=== PATIENT | female | born 1955 | race Caucasian/White ===

== ENCOUNTER 2017-07-13 07:17 | Day surgery (SDC) | payer MEDICARE ==
[2017-07-13] MEDS ORDERED: CLONAZEPAM2 MG/TAB (08:30)
[2017-07-13] MEDS ORDERED: ROBAXIN-750750 MG PO (08:31)
[2017-07-13] MEDS ORDERED: AMBIEN10 MG PO (08:32)
[2017-07-13] MEDS ORDERED: ESTRADERM 0.10.1 MG TD (08:32)
[2017-07-13] MEDS ORDERED: REGLAN10 MG PO (08:32)
[2017-07-13] MEDS ORDERED: PHENERGAN25 M1 (08:33)
[2017-07-13] MEDS ORDERED: ZENPEP DR 5,001 EACH PO (08:33)
[2017-07-13] MEDS ORDERED: NEURONTIN 300300 MG (08:34)
[2017-07-13] MEDS ORDERED: BUPRENORPHINE HC8 MG SL (08:35)
[2017-07-13] MEDS ORDERED: REMERON30 MG PO (08:35)
[2017-07-13] MEDS ORDERED: EPIPEN0.3 MG/0.3 IM (08:35)
[2017-07-13 08:45] VITALS: BP 107/69; BMI 17.9
[2017-07-13 09:36] LABS: HEMOGLOBIN 11.2 g/dL (12-16); MCH 32.9 pg (26.0-34.0); MCHC 32.9 g/dL (31.0-37.0); MEAN PLATELET VOLUME 10.5 fL (7.4-10.4); RBC 3.4 10x6/uL (4.00-5.40); RDW 12.1 % (11.5-14.5); WBC 5.9 10x3/uL (4.8-10.8)
[2017-07-13 09:39] LABS: CARBON DIOXIDE 21.5 mmol/L (21.0-32.0); CHLORIDE - SERUM 115 mmol/L (98-107); CREATININE - SERUM 0.6 mg/dL (0.6-1.3); SODIUM 147 mmol/L (136-145); UREA NITROGEN 10 mg/dL (7-18); eGFR NON AFRICAN AMERICAN > 90 mL/min (90-120)
[2017-07-13 09:40] LABS: CALC OSMOLALITY 288 mosm/kg (275-300)
[2017-07-13 09:42] LABS: CALCIUM 6.3 mg/dL (8.5-10.1); GLUCOSE 60 mg/dL (74-106); POTASSIUM - SERUM 2.6 mmol/L (3.5-5.1)
--- NOTE | 2017-07-13 18:32 | OP ---
PATIENT NAME: REBECCA WHITFIELD MEDICAL RECORD: [id number] :57 LOCATION:D.OPS ADMISSION DATE: SURGEON: ARLEEN LYNN MD DATE OF OPERATION: 07/13/2017 SURGEON: Arleen Lynn MD PREOPERATIVE DIAGNOSES: 1. Screening colonoscopy. 2. Nicotine dependence. 3. Chronic pancreatitis. 4. Gastroparesis. POSTOPERATIVE DIAGNOSES: 1. Screening colonoscopy. 2. Nicotine dependence. 3. Chronic pancreatitis. 4. Gastroparesis. PROCEDURE PERFORMED: Colonoscopy. ANESTHESIA: Total intravenous anesthesia. Case was contaminated. COMPLICATIONS: None. SPECIMENS: None. OPERATIVE COURSE: After consent was obtained, the patient was taken to the endoscopy suite. A timeout was taken to confirm correct patient and procedure. The patient was placed in left lateral decubitus position, total intravenous anesthesia was given. Digital rectal exam was performed. No masses. Scope was then inserted through the anus. The colon was insufflated. The scope was advanced to the cecum. The appendiceal orifice was identified and pictured as well as the ileocecal valve approximately 19 minutes was spent on colonoscopy, 8 of which was spent on withdrawal. The colonoscope during the colonoscopy no abnormalities were identified. The patient had no polyps were identified. No diverticular disease was identified. No stigmata of bleeding. No evidence of angiodysplasia. As we returned to the rectum, the scope was retroflexed. There was some small grade I internal hemorrhoids noted. At this time, the scope was readvanced into the sigmoid colon and descending colon. The scope was desufflated and then the scope was withdrawn. The patient tolerated the procedure well. The patient will need repeat colonoscopy in 7 to 10 years due to continued smoking and high risk behavior. TRANSINT:[id number] Voice Confirmation ID: [id number] DOCUMENT ID: [id number] OPERATIVE REPORT [id number] ROSEANNREBECCA ARLEEN LYNN MD at 1832 CC: [id number] DICTATION DATE: 07/13/17 0938 SPECIAL EDUCATION RESOURCE TEACHER: 07/13/17 1212 [facility] 07/13/17 [place] [address]
== END 2017-07-13 11:51 | disposition home or self-care (01) ==
LOC: D.OPS 07:17
PROVIDERS: Anesthesiology
DX: Z12.11 Encounter for screening for malignant neoplasm of colon (principal); K64.0 First degree hemorrhoids; F17.200 Nicotine dependence, unspecified, uncomplicated; K31.84 Gastroparesis; K86.1 Other chronic pancreatitis; Z01.812 Encounter for preprocedural laboratory examination

== ENCOUNTER → 2017-10-24 10:39 | Outpatient (CLI) | payer OTHER ==
[~2017-10-24 10:39] MED LIST: AMBIEN10 MG PO; BUPRENORPHINE HC8 MG SL; CLONAZEPAM2 MG/TAB; EPIPEN0.3 MG/0.3 IM; ESTRADERM 0.10.1 MG TD; NEURONTIN 300300 MG; PHENERGAN25 M1; REGLAN10 MG PO; REMERON30 MG PO; ROBAXIN-750750 MG PO; ZENPEP DR 5,001 EACH PO
== END | disposition home or self-care (01) ==
LOC: D.MRI 10:39
DX: M54.2 Cervicalgia (principal)

== ENCOUNTER 2017-10-26 00:19 | Emergency (ER) | payer OTHER ==
[2017-10-26 03:52] LABS: BASOPHILS 0.4 % (0-2); EOSINOPHILS 2.1 % (0-7); HEMATOCRIT 32.4 % (36.0-48.0); HEMOGLOBIN 10.6 g/dL (12-16); IMMATURE GRANULOCYTES 0.2 % (0-5); LYMPHOCYTES 32.6 % (15-50); MCH 32.5 pg (26.0-34.0); MCHC 32.7 g/dL (31.0-37.0); MCV 99.4 fL (80.0-100.0); MEAN PLATELET VOLUME 9.8 fL (7.4-10.4); MONOCYTES 7.4 % (2-11); NEUTROPHILS 57.3 % (40-80); PLATELET COUNT 133 10x3/uL (130-400); RBC 3.26 10x6/uL (4.00-5.40); RDW 12.1 % (11.5-14.5); WBC 5.7 10x3/uL (4.8-10.8)
[2017-10-26 04:01] LABS: INR 1.05 (0.85-1.17); PROTIME 13.3 SECONDS (11.6-15.0)
[2017-10-26 04:02] LABS: APTT 112.6 SECONDS (22.8-39.4); D-DIMER-QUANTITATIVE 0.79 ug/mLFEU (0.20-0.54)
[2017-10-26 04:04] LABS: ALBUMIN 3.3 g/dL (3.4-5.0); ALKALINE PHOSPHATASE 75 U/L (46-116); ALT (SGPT) 23 U/L (10-68); BILIRUBIN - TOTAL 0.44 mg/dL (0.2-1.3); CALC OSMOLALITY 278 mosm/kg (275-300); CARBON DIOXIDE 27.6 mmol/L (21.0-32.0); CHLORIDE - SERUM 107 mmol/L (98-107); CREATININE - SERUM 0.8 mg/dL (0.6-1.3); GLUCOSE 81 mg/dL (74-106); PROTEIN - SERUM 6.6 g/dL (6.4-8.2); SODIUM 140 mmol/L (136-145); UREA NITROGEN 16 mg/dL (7-18); eGFR NON AFRICAN AMERICAN 77 mL/min (90-120)
[2017-10-26 04:15] LABS: CKMB 1.9 U/L (0.0-3.6); CREATINE KINASE 487 UL (21-215); MAGNESIUM - SERUM 1.9 mg/dL (1.8-2.4); PRO BNP 443 pg/mL (0-125)
[2017-10-26 04:18] LABS: TROPONIN-I < 0.017 ng/mL (0.000-0.060)
== END 2017-10-26 07:54 | disposition home or self-care (01) ==
LOC: D.ER 00:19
PROVIDERS: Family Medicine
DX: M79.662 Pain in left lower leg (principal); M79.661 Pain in right lower leg; D64.9 Anemia, unspecified; I82.402 Acute embolism and thrombosis of unspecified deep veins of left lower extremity; F17.200 Nicotine dependence, unspecified, uncomplicated; R00.1 Bradycardia, unspecified

== ENCOUNTER → 2017-11-14 11:03 | Outpatient (CLI) | payer OTHER | END | disposition home or self-care (01) | LOC: D.MRI 10:30 | DX: M54.5 Low back pain (principal) ==

== ENCOUNTER 2018-03-21 11:37 | Inpatient (IN) | payer OTHER ==
[~2018-03-21] VITALS: Ht 157.5 cm; Wt 46.8 kg
[~2018-03-21 11:37] MED LIST changes: -PHENERGAN25 M1; +PHENERGAN25 M1 PO
[2018-03-21 12:45] VITALS: BP 122/51
[2018-03-21] MEDS ORDERED: ELIQUIS5 MG PO (14:53)
[2018-03-21] MEDS ORDERED: WELLBUTRIN SR150 MG (14:55)
[2018-03-21 14:57] LABS: BASOPHILS 0.6 % (0-2); EOSINOPHILS 1.1 % (0-7); HEMATOCRIT 35.1 % (36.0-48.0); HEMOGLOBIN 11.6 g/dL (12-16); IMMATURE GRANULOCYTES 0.2 % (0-5); LYMPHOCYTES 39.3 % (15-50); MCH 32.4 pg (26.0-34.0); MEAN PLATELET VOLUME 9.5 fL (7.4-10.4); MONOCYTES 5.3 % (2-11); NEUTROPHILS 53.5 % (40-80); RBC 3.58 10x6/uL (4.00-5.40); WBC 5.4 10x3/uL (4.8-10.8)
[2018-03-21 14:58] LABS: PLATELET COUNT 247 10x3/uL (130-400)
[2018-03-21 15:20] LABS: ALBUMIN 3.7 g/dL (3.4-5.0); ANION GAP 9.8 mmol/L (8-16); BILIRUBIN - TOTAL 0.42 mg/dL (0.2-1.3); CALCIUM 8.8 mg/dL (8.5-10.1); CARBON DIOXIDE 30.1 mmol/L (21.0-32.0); CREATININE - SERUM 0.9 mg/dL (0.6-1.3); POTASSIUM - SERUM 3.9 mmol/L (3.5-5.1); PROTEIN - SERUM 7.7 g/dL (6.4-8.2)
[2018-03-21 15:22] LABS: HELICOBACTER PYLORI IGG NEGATIVE (NEGATIVE)
[2018-03-21 16:43] VITALS: BP 118/64
[2018-03-21 18:58] VITALS: BP 117/60
[2018-03-21 19:51] VITALS: BP 104/55
[2018-03-22 00:10] VITALS: BP 101/45
[2018-03-22 04:45] VITALS: BP 99/64
[2018-03-22 06:52] LABS: CALC OSMOLALITY 284 mosm/kg (275-300); CARBON DIOXIDE 29.3 mmol/L (21.0-32.0); CHLORIDE - SERUM 108 mmol/L (98-107); CREATININE - SERUM 0.8 mg/dL (0.6-1.3); FERRITIN 149 ng/mL (3-244); GLUCOSE 91 mg/dL (74-106); POTASSIUM - SERUM 3.4 mmol/L (3.5-5.1); SODIUM 143 mmol/L (136-145); UREA NITROGEN 13 mg/dL (7-18); eGFR NON AFRICAN AMERICAN 77 mL/min (90-120)
[2018-03-22 07:51] LABS: BASOPHILS 0.4 % (0-2); EOSINOPHILS 1.4 % (0-7); HEMATOCRIT 32.6 % (36.0-48.0); HEMOGLOBIN 10.3 g/dL (12-16); IMMATURE GRANULOCYTES 0.2 % (0-5); MCH 31.8 pg (26.0-34.0); MCHC 31.6 g/dL (31.0-37.0); MEAN PLATELET VOLUME 9.8 fL (7.4-10.4); MONOCYTES 6.8 % (2-11); NEUTROPHILS 52.2 % (40-80); PLATELET COUNT 236 10x3/uL (130-400); RBC 3.24 10x6/uL (4.00-5.40); RDW 12.2 % (11.5-14.5); WBC 5.6 10x3/uL (4.8-10.8)
[2018-03-22 07:57] LABS: MCV 100.6 fL (80.0-100.0)
[2018-03-22 08:17] VITALS: BP 108/60
[2018-03-22 08:38] LABS: % SATURATION 55 % (15-55); IRON 117 ug/dl (35-150); TOTAL IRON BIND CAPACITY 211 ug/dl (260-445); UNSAT IRON BIND CAPACITY 94 ug/dl (150-375)
[2018-03-22 09:53] VITALS: Ht 157.5 cm; Wt 46.8 kg
[2018-03-22 11:47] VITALS: BP 106/57
[2018-03-22 15:41] VITALS: BP 120/56
[2018-03-22 22:01] VITALS: BP 106/54
[2018-03-23] VITALS (7 sets, daily range): BP systolic 77–134; BP diastolic 35–64
[2018-03-23 05:53] LABS: BASOPHILS 0.4 % (0-2); EOSINOPHILS 1.7 % (0-7); HEMOGLOBIN 10.3 g/dL (12-16); IMMATURE GRANULOCYTES 0.2 % (0-5); LYMPHOCYTES 33.1 % (15-50); MCH 32.4 pg (26.0-34.0); MCHC 32.2 g/dL (31.0-37.0); MCV 100.6 fL (80.0-100.0); MEAN PLATELET VOLUME 9.5 fL (7.4-10.4); MONOCYTES 6.9 % (2-11); NEUTROPHILS 57.7 % (40-80); PLATELET COUNT 221 10x3/uL (130-400); RBC 3.18 10x6/uL (4.00-5.40); WBC 5.4 10x3/uL (4.8-10.8)
[2018-03-23 06:18] LABS: AMYLASE - SERUM 44 U/L (25-115); LIPASE 138 U/L (73-393)
[2018-03-23 06:26] LABS: BILIRUBIN - TOTAL 0.29 mg/dL (0.2-1.3); CALCIUM 8.1 mg/dL (8.5-10.1); CARBON DIOXIDE 28.9 mmol/L (21.0-32.0); CREATININE - SERUM 0.9 mg/dL (0.6-1.3); PROTEIN - SERUM 5.9 g/dL (6.4-8.2)
[2018-03-23 06:28] LABS: ALBUMIN 2.7 g/dL (3.4-5.0); ANION GAP 9.3 mmol/L (8-16); POTASSIUM - SERUM 4.2 mmol/L (3.5-5.1)
[2018-03-24 05:17] LABS: CALCIUM 7.4 mg/dL (8.5-10.1); CARBON DIOXIDE 30.5 mmol/L (21.0-32.0); CREATININE - SERUM 0.9 mg/dL (0.6-1.3)
[2018-03-24 05:21] LABS: POTASSIUM - SERUM 3.5 mmol/L (3.5-5.1)
[2018-03-24 06:03] VITALS: BP 122/53
[2018-03-24 09:20] VITALS: BP 128/60
[2018-03-24 14:38] VITALS: BP 115/63
[2018-03-24 15:40] LABS: APPEARANCE CLEAR (CLEAR); BILIRUBIN NEGATIVE (NEGATIVE); COLOR YELLOW (YELLOW); GLUCOSE NEGATIVE (NEGATIVE); KETONE NEGATIVE (NEGATIVE); NITRITE NEGATIVE (NEGATIVE); PROTEIN NEGATIVE (NEGATIVE); UROBILINOGEN NORMAL (NORMAL)
[2018-03-24 17:07] VITALS: BP 138/57
[2018-03-24 20:42] VITALS: BP 125/56
[2018-03-25 00:28] VITALS: BP 134/54
[2018-03-25 04:10] VITALS: BP 124/64
[2018-03-25 04:58] LABS: BASOPHILS 0.4 % (0-2); EOSINOPHILS 3.3 % (0-7); HEMATOCRIT 26.8 % (36.0-48.0); HEMOGLOBIN 8.6 g/dL (12-16); LYMPHOCYTES 35.7 % (15-50); MCHC 32.1 g/dL (31.0-37.0); MCV 99.6 fL (80.0-100.0); MEAN PLATELET VOLUME 9.5 fL (7.4-10.4); MONOCYTES 8.1 % (2-11); NEUTROPHILS 52.5 % (40-80); RBC 2.69 10x6/uL (4.00-5.40); RDW 11.7 % (11.5-14.5); WBC 4.6 10x3/uL (4.8-10.8)
[2018-03-25 05:03] LABS: PLATELET COUNT 166 10x3/uL (130-400)
[2018-03-25 05:04] LABS: CALC OSMOLALITY 289 mosm/kg (275-300); CALCIUM 7.6 mg/dL (8.5-10.1); CARBON DIOXIDE 28.9 mmol/L (21.0-32.0); CHLORIDE - SERUM 113 mmol/L (98-107); CREATININE - SERUM 0.8 mg/dL (0.6-1.3); GLUCOSE 113 mg/dL (74-106); POTASSIUM - SERUM 3.4 mmol/L (3.5-5.1); SODIUM 146 mmol/L (136-145); eGFR NON AFRICAN AMERICAN 77 mL/min (90-120)
[2018-03-25 05:06] LABS: UREA NITROGEN 8 mg/dL (7-18)
[2018-03-25 08:30] VITALS: BP 128/70
[2018-03-25 12:35] VITALS: BP 149/80
[2018-03-25 22:18] VITALS: BP 127/61
[2018-03-26 04:10] VITALS: BP 109/57
[2018-03-26 07:52] VITALS: BP 151/97
[2018-03-26 08:50] LABS: BASOPHILS 0.2 % (0-2); EOSINOPHILS 3.2 % (0-7); HEMATOCRIT 25.8 % (36.0-48.0); HEMOGLOBIN 8.5 g/dL (12-16); IMMATURE GRANULOCYTES 0.2 % (0-5); LYMPHOCYTES 31.6 % (15-50); MCH 32.7 pg (26.0-34.0); MCHC 32.9 g/dL (31.0-37.0); MCV 99.2 fL (80.0-100.0); MEAN PLATELET VOLUME 9.4 fL (7.4-10.4); MONOCYTES 8.1 % (2-11); NEUTROPHILS 56.7 % (40-80); PLATELET COUNT 173 10x3/uL (130-400); RDW 11.7 % (11.5-14.5); WBC 4.7 10x3/uL (4.8-10.8)
[2018-03-26 09:06] LABS: ALBUMIN 2.5 g/dL (3.4-5.0); ALKALINE PHOSPHATASE 57 U/L (46-116); ALT (SGPT) 27 U/L (10-68); BILIRUBIN - TOTAL 0.26 mg/dL (0.2-1.3); CALC OSMOLALITY 279 mosm/kg (275-300); CALCIUM 7.5 mg/dL (8.5-10.1); CARBON DIOXIDE 28.3 mmol/L (21.0-32.0); CHLORIDE - SERUM 110 mmol/L (98-107); CREATININE - SERUM 0.8 mg/dL (0.6-1.3); GLUCOSE 87 mg/dL (74-106); POTASSIUM - SERUM 3.3 mmol/L (3.5-5.1); PROTEIN - SERUM 5.6 g/dL (6.4-8.2); SODIUM 142 mmol/L (136-145); UREA NITROGEN 6 mg/dL (7-18); eGFR NON AFRICAN AMERICAN 77 mL/min (90-120)
[2018-03-26 12:16] VITALS: BP 146/75
[2018-03-26 15:24] VITALS: BP 139/70
[2018-03-26 21:48] VITALS: BP 142/73
[2018-03-27 00:56] VITALS: BP 154/74
[2018-03-27 04:28] VITALS: BP 155/69
[2018-03-27 08:57] VITALS: BP 152/76
[2018-03-27 16:52] VITALS: BP 157/75
[2018-03-27 20:00] VITALS: BP 143/73
[2018-03-28] VITALS (7 sets, daily range): BP systolic 133–158; BP diastolic 58–76
[2018-03-28 05:21] LABS: BASOPHILS 0.5 % (0-2); EOSINOPHILS 2.9 % (0-7); HEMATOCRIT 24.3 % (36.0-48.0); HEMOGLOBIN 8.2 g/dL (12-16); MCH 33.2 pg (26.0-34.0); MCHC 33.7 g/dL (31.0-37.0); MCV 98.4 fL (80.0-100.0); MEAN PLATELET VOLUME 9.7 fL (7.4-10.4); NEUTROPHILS 58.6 % (40-80); PLATELET COUNT 170 10x3/uL (130-400); RBC 2.47 10x6/uL (4.00-5.40); RDW 12.1 % (11.5-14.5); WBC 4.1 10x3/uL (4.8-10.8)
[2018-03-28 05:27] LABS: CALCIUM 7.1 mg/dL (8.5-10.1); CARBON DIOXIDE 31.1 mmol/L (21.0-32.0); CREATININE - SERUM 0.9 mg/dL (0.6-1.3)
[2018-03-28 05:33] LABS: ANION GAP 7.9 mmol/L (8-16)
[2018-03-29 04:05] VITALS: BP 148/64
[2018-03-29 08:42] VITALS: BP 122/68
[2018-03-29 13:00] VITALS: BP 147/78
[2018-03-29 16:32] VITALS: BP 144/75
[2018-03-29 20:51] VITALS: BP 147/70
[2018-03-30 04:26] VITALS: BP 154/74
[2018-03-30 06:29] LABS: BASOPHILS 0.5 % (0-2); EOSINOPHILS 3.2 % (0-7); HEMATOCRIT 25.4 % (36.0-48.0); HEMOGLOBIN 8.2 g/dL (12-16); MCH 31.9 pg (26.0-34.0); MCHC 32.3 g/dL (31.0-37.0); MCV 98.8 fL (80.0-100.0); MEAN PLATELET VOLUME 9.6 fL (7.4-10.4); MONOCYTES 8.5 % (2-11); NEUTROPHILS 51.8 % (40-80); PLATELET COUNT 191 10x3/uL (130-400); RBC 2.57 10x6/uL (4.00-5.40); WBC 3.8 10x3/uL (4.8-10.8)
[2018-03-30 06:56] LABS: CALCIUM 7.8 mg/dL (8.5-10.1); CARBON DIOXIDE 34.4 mmol/L (21.0-32.0); CREATININE - SERUM 0.9 mg/dL (0.6-1.3); POTASSIUM - SERUM 3.4 mmol/L (3.5-5.1)
[2018-03-30] MEDS ORDERED: Pancrease 5000,17,00 PO (07:57)
[2018-03-30] MEDS ORDERED: LOMOTIL TABLET1 TAB PO (07:58)
[2018-03-30] MEDS ORDERED: PROTONIX40 MG PO (07:59)
[2018-03-30 08:39] VITALS: BP 149/76
[2018-04-04 05:12] LABS: OVA + PARASITE EXAM Final report (())
== END 2018-03-30 11:15 | disposition home or self-care (01) | DRG 438 ==
LOC: D.MS 11:37
PROVIDERS: Family Medicine; Internal Medicine Gastroenterology
DX: K86.1 Other chronic pancreatitis (principal); E43 Unspecified severe protein-calorie malnutrition; Z68.1 Body mass index [BMI] 19.9 or less, adult; R19.7 Diarrhea, unspecified; K31.84 Gastroparesis; Z79.01 Long term (current) use of anticoagulants; F32.9 Major depressive disorder, single episode, unspecified; F41.9 Anxiety disorder, unspecified; D64.9 Anemia, unspecified; Z87.891 Personal history of nicotine dependence

== ENCOUNTER 2018-05-20 12:37 | Inpatient (IN) | payer OTHER ==
[~2018-05-20] VITALS: Ht 157.5 cm; Wt 49.5 kg
[~2018-05-20 12:37] MED LIST changes: +ELIQUIS5 MG PO; +LOMOTIL TABLET1 TAB PO; +PROTONIX40 MG PO; +Pancrease 5000,17,00 PO; +WELLBUTRIN SR150 MG
[2018-05-20 13:33] LABS: BASOPHILS 0.3 % (0-2); EOSINOPHILS 0.8 % (0-7); HEMATOCRIT 39.2 % (36.0-48.0); HEMOGLOBIN 13.3 g/dL (12-16); MCH 33.9 pg (26.0-34.0); MCHC 33.9 g/dL (31.0-37.0); MEAN PLATELET VOLUME 9.4 fL (7.4-10.4); MONOCYTES 5.4 % (2-11); NEUTROPHILS 64.5 % (40-80); PLATELET COUNT 211 10x3/uL (130-400); RBC 3.92 10x6/uL (4.00-5.40); RDW 12.9 % (11.5-14.5); WBC 7.3 10x3/uL (4.8-10.8)
[2018-05-20 13:39] LABS: ALBUMIN 3.9 g/dL (3.4-5.0); ANION GAP 13.5 mmol/L (8-16); BILIRUBIN - TOTAL 0.56 mg/dL (0.2-1.3); CARBON DIOXIDE 24.6 mmol/L (21.0-32.0); CREATININE - SERUM 0.9 mg/dL (0.6-1.3); POTASSIUM - SERUM 4.1 mmol/L (3.5-5.1); PROTEIN - SERUM 8.1 g/dL (6.4-8.2)
[2018-05-20 14:16] VITALS: BP 142/81
[2018-05-20 14:25] LABS: APPEARANCE CLEAR (CLEAR); BILIRUBIN NEGATIVE (NEGATIVE); COLOR YELLOW (YELLOW); GLUCOSE NEGATIVE (NEGATIVE); KETONE NEGATIVE (NEGATIVE); NITRITE NEGATIVE (NEGATIVE); PROTEIN TRACE mg/dL (NEGATIVE); SPECIFIC GRAVITY 1.005 (1.005-1.020); UROBILINOGEN NORMAL (NORMAL)
[2018-05-20 14:34] LABS: UDS - AMPHET NEGATIVE QUAL (NEGATIVE); UDS - BARB NEGATIVE QUAL (NEGATIVE); UDS - BENZO NEGATIVE QUAL (NEGATIVE); UDS - COCAINE NEGATIVE QUAL (NEGATIVE); UDS - OPIATE POSITIVE QUAL (NEGATIVE); UDS - PCP NEGATIVE QUAL (NEGATIVE); UDS - THC NEGATIVE QUAL (NEGATIVE)
[2018-05-20 18:15] VITALS: BP 136/69
[2018-05-20 21:11] VITALS: BP 136/59
[2018-05-20] MEDS ORDERED: TRINTELLIX5 MG PO (23:28)
[2018-05-20 23:41] VITALS: BP 129/79; BMI 20.1
[2018-05-21 00:45] VITALS: BP 129/79
[2018-05-21 05:26] LABS: BASOPHILS 0.3 % (0-2); EOSINOPHILS 1.6 % (0-7); HEMATOCRIT 37.4 % (36.0-48.0); HEMOGLOBIN 12.4 g/dL (12-16); IMMATURE GRANULOCYTES 0.1 % (0-5); LYMPHOCYTES 34.1 % (15-50); MCH 33.3 pg (26.0-34.0); MCHC 33.2 g/dL (31.0-37.0); MCV 100.5 fL (80.0-100.0); MEAN PLATELET VOLUME 9.5 fL (7.4-10.4); MONOCYTES 7.6 % (2-11); NEUTROPHILS 56.3 % (40-80); PLATELET COUNT 205 10x3/uL (130-400); RBC 3.72 10x6/uL (4.00-5.40); RDW 12.5 % (11.5-14.5); WBC 6.7 10x3/uL (4.8-10.8)
[2018-05-21 05:38] LABS: ALBUMIN 3.5 g/dL (3.4-5.0); BILIRUBIN - TOTAL 0.38 mg/dL (0.2-1.3); CALCIUM 8.9 mg/dL (8.5-10.1); POTASSIUM - SERUM 3.8 mmol/L (3.5-5.1); PROTEIN - SERUM 7.5 g/dL (6.4-8.2)
[2018-05-21 05:39] LABS: CARBON DIOXIDE 30.8 mmol/L (21.0-32.0)
[2018-05-21 05:40] VITALS: BP 120/59
[2018-05-21 08:04] VITALS: BP 108/70
[2018-05-21 11:31] VITALS: BP 130/68
[2018-05-21 16:12] VITALS: BP 109/54
[2018-05-21 20:38] VITALS: BP 124/61
[2018-05-22 01:31] VITALS: BP 110/56
[2018-05-22 06:02] LABS: BASOPHILS 0.1 % (0-2); EOSINOPHILS 0.4 % (0-7); HEMATOCRIT 34.4 % (36.0-48.0); HEMOGLOBIN 11.6 g/dL (12-16); IMMATURE GRANULOCYTES 0.3 % (0-5); LYMPHOCYTES 13.7 % (15-50); MCH 33.8 pg (26.0-34.0); MCHC 33.7 g/dL (31.0-37.0); MCV 100.3 fL (80.0-100.0); MEAN PLATELET VOLUME 9.5 fL (7.4-10.4); MONOCYTES 4.1 % (2-11); NEUTROPHILS 81.4 % (40-80); PLATELET COUNT 191 10x3/uL (130-400); RBC 3.43 10x6/uL (4.00-5.40); RDW 12.3 % (11.5-14.5)
[2018-05-22 06:04] LABS: WBC 11.3 10x3/uL (4.8-10.8)
[2018-05-22 06:12] VITALS: BP 147/66
[2018-05-22 06:21] LABS: ALBUMIN 2.9 g/dL (3.4-5.0); ALKALINE PHOSPHATASE 91 U/L (46-116); ALT (SGPT) 52 U/L (10-68); BILIRUBIN - TOTAL 0.52 mg/dL (0.2-1.3); CALC OSMOLALITY 272 mosm/kg (275-300); CARBON DIOXIDE 29.4 mmol/L (21.0-32.0); CHLORIDE - SERUM 102 mmol/L (98-107); CREATININE - SERUM 0.8 mg/dL (0.6-1.3); GLUCOSE 94 mg/dL (74-106); LIPASE 203 U/L (73-393); POTASSIUM - SERUM 3.9 mmol/L (3.5-5.1); PROTEIN - SERUM 6.4 g/dL (6.4-8.2); SODIUM 137 mmol/L (136-145); UREA NITROGEN 11 mg/dL (7-18); eGFR NON AFRICAN AMERICAN 77 mL/min (90-120)
[2018-05-22 07:50] VITALS: BP 100/59
[2018-05-22 11:06] VITALS: BP 103/51
[2018-05-22 15:31] VITALS: BP 104/57
[2018-05-22 20:00] VITALS: BP 97/43
[2018-05-23] VITALS: BP 147/72
[2018-05-23 04:00] VITALS: BP 128/71
[2018-05-23 08:57] VITALS: BP 104/59
[2018-05-23 10:52] VITALS: Ht 157.5 cm; Wt 49.5 kg
[2018-05-23 11:35] VITALS: BP 103/69
[2018-05-23 15:50] VITALS: BP 100/64
[2018-05-23 20:00] VITALS: BP 100/55
[2018-05-24 04:00] VITALS: BP 98/60
[2018-05-24 04:16] LABS: BASOPHILS 0.2 % (0-2); EOSINOPHILS 1.7 % (0-7); HEMATOCRIT 34.1 % (36.0-48.0); HEMOGLOBIN 11.3 g/dL (12-16); LYMPHOCYTES 32.7 % (15-50); MCH 33.7 pg (26.0-34.0); MCHC 33.1 g/dL (31.0-37.0); MCV 101.8 fL (80.0-100.0); MEAN PLATELET VOLUME 9.2 fL (7.4-10.4); MONOCYTES 5.5 % (2-11); NEUTROPHILS 59.9 % (40-80); PLATELET COUNT 198 10x3/uL (130-400); RBC 3.35 10x6/uL (4.00-5.40); RDW 12.2 % (11.5-14.5); WBC 6.5 10x3/uL (4.8-10.8)
[2018-05-24 04:29] LABS: ALBUMIN 2.9 g/dL (3.4-5.0); ANION GAP 8.4 mmol/L (8-16); BILIRUBIN - TOTAL 0.34 mg/dL (0.2-1.3); CALCIUM 8.1 mg/dL (8.5-10.1); CARBON DIOXIDE 30.9 mmol/L (21.0-32.0); POTASSIUM - SERUM 4.3 mmol/L (3.5-5.1); PROTEIN - SERUM 6.8 g/dL (6.4-8.2)
[2018-05-24 08:11] VITALS: BP 104/59
[2018-05-24 11:50] VITALS: BP 95/57
[2018-05-24 16:47] VITALS: BP 106/49
[2018-05-24 20:00] VITALS: BP 125/61
[2018-05-25 04:00] VITALS: BP 112/62
[2018-05-25 08:19] VITALS: BP 104/63
[2018-05-25 09:24] LABS: BASOPHILS 0.2 % (0-2); EOSINOPHILS 1.6 % (0-7); HEMATOCRIT 32.3 % (36.0-48.0); HEMOGLOBIN 10.5 g/dL (12-16); IMMATURE GRANULOCYTES 0.2 % (0-5); LYMPHOCYTES 17.1 % (15-50); MCH 33.1 pg (26.0-34.0); MCHC 32.5 g/dL (31.0-37.0); MCV 101.9 fL (80.0-100.0); MEAN PLATELET VOLUME 9.5 fL (7.4-10.4); MONOCYTES 9.3 % (2-11); NEUTROPHILS 71.6 % (40-80); PLATELET COUNT 204 10x3/uL (130-400); RBC 3.17 10x6/uL (4.00-5.40); RDW 12.1 % (11.5-14.5)
[2018-05-25 09:26] LABS: ALBUMIN 2.8 g/dL (3.4-5.0); ALKALINE PHOSPHATASE 73 U/L (46-116); CALC OSMOLALITY 269 mosm/kg (275-300); CALCIUM 8.2 mg/dL (8.5-10.1); CARBON DIOXIDE 31.2 mmol/L (21.0-32.0); CHLORIDE - SERUM 103 mmol/L (98-107); GLUCOSE 91 mg/dL (74-106); LIPASE 295 U/L (73-393); PROTEIN - SERUM 6.3 g/dL (6.4-8.2); SODIUM 136 mmol/L (136-145); UREA NITROGEN 8 mg/dL (7-18)
[2018-05-25 09:27] LABS: ALT (SGPT) 27 U/L (10-68); CREATININE - SERUM 0.7 mg/dL (0.6-1.3); eGFR NON AFRICAN AMERICAN 90 mL/min (90-120)
[2018-05-25 09:28] LABS: WBC 4.5 10x3/uL (4.8-10.8)
[2018-05-25 12:18] VITALS: BP 102/51
[2018-05-25 15:22] VITALS: BP 111/62
[2018-05-25 20:00] VITALS: BP 89/57
[2018-05-26 04:00] VITALS: BP 151/82
[2018-05-26 09:30] VITALS: BP 126/61
[2018-05-26 12:56] VITALS: BP 136/74
[2018-05-26 16:35] VITALS: BP 128/78
[2018-05-26 20:39] VITALS: BP 135/73
[2018-05-27 04:00] VITALS: BP 140/70
[2018-05-27 07:45] VITALS: BP 132/68
[2018-05-27] MEDS ORDERED: ULTRAM50 MG PO (09:33)
[2018-05-27 10:41] VITALS: BP 128/64
== END 2018-05-27 14:21 | disposition home or self-care (01) | DRG 439 ==
LOC: D.ER 12:37 → D.M2 20:58 → D.EDHOLD 20:58 → OBSVTIME 20:58 → D.M2 21:40 → D.SDCHOLD 05-23 10:56 → D.M2 05-23 11:01 → D.SDCHOLD 05-23 11:04 → D.M2 05-23 13:27 → D.SDCHOLD 05-23 13:27 → D.M2 05-27 14:21
PROVIDERS: Family Medicine; Internal Medicine Gastroenterology
PROC: BF111ZZ Fluoroscopy of Biliary and Pancreatic Ducts using Low Osmolar Contrast (ICD-10-PCS; 2018-05-24)
PROC: 0F7D8DZ Dilation of Pancreatic Duct with Intraluminal Device, Via Natural or Artificial Opening Endoscopic (ICD-10-PCS; principal; 2018-05-24 14:18)
DX: K85.90 Acute pancreatitis without necrosis or infection, unspecified (principal); E46 Unspecified protein-calorie malnutrition; K86.1 Other chronic pancreatitis; F32.9 Major depressive disorder, single episode, unspecified; F41.9 Anxiety disorder, unspecified; K31.84 Gastroparesis; D64.9 Anemia, unspecified; Z86.73 Personal history of transient ischemic attack (TIA), and cerebral infarction without residual deficits; Z87.891 Personal history of nicotine dependence; Z68.20 Body mass index [BMI] 20.0-20.9, adult

== ENCOUNTER → 2018-06-12 14:17 | Outpatient (CLI) | payer OTHER ==
[2018-05-23 10:52] VITALS: BMI 21.9
[~2018-06-12 14:17] MED LIST changes: +TRINTELLIX5 MG PO; +ULTRAM50 MG PO
== END | disposition home or self-care (01) ==
LOC: D.RAD 10:00
DX: Z98.890 Other specified postprocedural states (principal)

== ENCOUNTER 2018-06-21 06:09 | Day surgery (SDC) | payer OTHER ==
[~2018-06-21] VITALS: Ht 157.5 cm; Wt 47.7 kg
--- NOTE | ~2018-06-21 | OP ---
PATIENT NAME: REBECCA WHITFIELD MEDICAL RECORD: [id number] :57 [facility] AD[facility] DATE: SURGEON: ROMINA DENSON DO DATE OF OPERATION: 06/21/2018 PROCEDURE: EGD with removal of a pancreatic stent and biopsies. INDICATION FOR PROCEDURE: Encounter for removal of pancreatic stent. SCOPE: Olympus video gastroscope. MEDICATIONS: Propofol 80 mg IV per anesthesia. ESTIMATED BLOOD LOSS: Minimal. COMPLICATIONS: None. FINDINGS: Informed consent was given. The patient was made comfortable with the above medication. After reaching an adequate level of sedation by slow IV push, the patient was placed on the left side. The endoscope was advanced under direct visualization through the mouth down to the second portion of the duodenum. The entire esophagus and GE junction appeared normal. The endoscope was advanced beyond the GE junction into the stomach and retroflexed to view the cardia, which appeared normal. The fundus, body of the stomach, antrum, and prepyloric regions all appeared normal. Random biopsies were taken to submit for histology and to rule out the presence of H. pylori. The endoscope was advanced beyond the pylorus into the duodenum. The duodenal bulb, first portion, and second portion of the duodenum appeared normal. In the second portion of the duodenum, the previously placed 7-Nauruan x 7 cm straight plastic stent was visualized. It was removed using a snare and brought out with the endoscope. The endoscope was then advanced back into the stomach and the stomach was insufflated. The endoscope was then withdrawn from the patient. The patient tolerated the procedure well and there were no complications. IMPRESSION: Pancreatic stent, status post removal. PLAN AND RECOMMENDATIONS: 1. Discharge home when recovery parameters are met. 2. Follow up biopsy specimen results. 3. Continue current diet and medications. The patient will need to resume her Creon capsules taking 2 with meals and 1 with snacks. 4. Okay to resume anticoagulants tomorrow. TRANSINT:[id number] Voice Confirmation ID: [id number] DOCUMENT ID: [id number] ROMINA DENSON DO at 0816 CC: [id number] DICTATION DATE: 06/21/18 09 RELAY ASSEMBLER: 06/21/18 1104 [facility] 06/21/18 [place] [id number]
[2018-06-21 08:23] VITALS: BP 126/72; Ht 157.5 cm; Wt 47.7 kg
[2018-06-21 08:28] LABS: BASOPHILS 0.4 % (0-2); EOSINOPHILS 2.6 % (0-7); HEMATOCRIT 35.3 % (36.0-48.0); HEMOGLOBIN 12.3 g/dL (12-16); IMMATURE GRANULOCYTES 0.2 % (0-5); LYMPHOCYTES 36.5 % (15-50); MCH 33.8 pg (26.0-34.0); MCHC 34.8 g/dL (31.0-37.0); MEAN PLATELET VOLUME 10.2 fL (7.4-10.4); MONOCYTES 9.4 % (2-11); NEUTROPHILS 50.9 % (40-80); PLATELET COUNT 146 10x3/uL (130-400); RBC 3.64 10x6/uL (4.00-5.40); WBC 4.7 10x3/uL (4.8-10.8)
[2018-06-21 08:48] LABS: ALBUMIN 3.7 g/dL (3.4-5.0); ANION GAP 11.1 mmol/L (8-16); BILIRUBIN - TOTAL 0.21 mg/dL (0.2-1.3); CALCIUM 9.2 mg/dL (8.5-10.1); CARBON DIOXIDE 29.5 mmol/L (21.0-32.0); POTASSIUM - SERUM 3.6 mmol/L (3.5-5.1); PROTEIN - SERUM 7.2 g/dL (6.4-8.2)
== END 2018-06-21 09:50 | disposition home or self-care (01) ==
LOC: D.OPS 06:09
PROVIDERS: Anesthesiology
DX: Z45.89 Encounter for adjustment and management of other implanted devices (principal); Z01.812 Encounter for preprocedural laboratory examination

== ENCOUNTER 2018-07-19 05:45 | Day surgery (SDC) | payer OTHER ==
[~2018-07-19] VITALS: Ht 157.5 cm; Wt 53.6 kg
--- NOTE | ~2018-07-19 | OP ---
PATIENT NAME: REBECCA WHITFIELD MEDICAL RECORD: [id number] :57 [facility] ADMISSION DATE: SURGEON: ROMINA DENSON DO DATE OF OPERATION: 07/19/2018 PROCEDURE: Colonoscopy with polypectomy. INDICATIONS FOR PROCEDURE: Blood in the stool and abdominal pain. SCOPE: [employer] video pediatric colonoscope. MEDICATIONS: Propofol 120 mg IV per anesthesia. WITHDRAWAL TIME: 16 minutes. ESTIMATED BLOOD LOSS: Minimal. COMPLICATIONS: None. FINDINGS: Informed consent was given. The patient was made comfortable with the above medication. After reaching an adequate level of sedation by slow IV push, the patient was placed on her left side. A digital rectal examination was performed and was normal other than the fact that the rectal tone was extremely poor and the rectum itself was somewhat patulous. The endoscope was advanced under direct visualization through the rectum to the terminal ileum and cecum. The endoscope was slowly withdrawn and the mucosa was carefully examined. The prep quality was fair. There was 1 polyp visualized on today's examination. It was located in the descending colon. It was a benign appearing and sessile polyp, which measured approximately 4-5 mm in diameter. It was removed using hot forceps in 1 piece and completely retrieved. The remaining site was cauterized. There were no diverticula seen on today's examination. Retroflexion was performed in the rectum with visualization of again a patulous rectum with some tissue that was somewhat friable and consistent with an appearance of some prolapsing tissue. There were some small internal hemorrhoids without active bleeding. The endoscope was then unretroflexed and withdrawn from the patient. The patient tolerated the procedure well and there were no complications. IMPRESSION: 1. Descending colon polyp removed using a hot forceps. 2. Likely mild rectal prolapse and small hemorrhoids, which were not bleeding. This is the cause of the intermittent bleeding seen when wiping with tissue paper. PLAN AND RECOMMENDATIONS: 1. Discharge home when recovery parameters are met. 2. Follow up biopsy specimen results. 3. High fiber diet. 4. Consider supplementation of diet with Metamucil or psyllium husk fiber to help bulk the stool and lubricate the stool. 5. Continue current medications. 6. Recall colonoscopy will be dependent on pathology results. I anticipate this being from 5 to 10 years. TRANSINT:[id number] Voice Confirmation ID: [id number] DOCUMENT ID: [id number] OPERATIVE REPORT [id number] REBECCA WHITFIELD NATHAN A DO at 1300 CC: [id number] DICTATION DATE: 07/19/18851 ACROBATIC RIGGER: 07/19/18927 [facility] 07/19/18 [facility] [address] [place] [address]
[2018-07-19 07:32] VITALS: BP 86/47; Ht 157.5 cm; Wt 53.6 kg
[2018-07-19 07:36] LABS: BASOPHILS 0.3 % (0-2); EOSINOPHILS 1.3 % (0-7); HEMATOCRIT 34.6 % (36.0-48.0); HEMOGLOBIN 11.6 g/dL (12-16); IMMATURE GRANULOCYTES 0.2 % (0-5); LYMPHOCYTES 25.5 % (15-50); MCH 32.7 pg (26.0-34.0); MCHC 33.5 g/dL (31.0-37.0); MCV 97.5 fL (80.0-100.0); MEAN PLATELET VOLUME 9.3 fL (7.4-10.4); NEUTROPHILS 66.7 % (40-80); RBC 3.55 10x6/uL (4.00-5.40); RDW 12.3 % (11.5-14.5)
[2018-07-19 07:44] LABS: ANION GAP 12.8 mmol/L (8-16); CALCIUM 9.1 mg/dL (8.5-10.1); CARBON DIOXIDE 28.5 mmol/L (21.0-32.0); CREATININE - SERUM 1.1 mg/dL (0.6-1.3); POTASSIUM - SERUM 3.3 mmol/L (3.5-5.1)
[2018-07-19 07:49] LABS: PLATELET COUNT 204 10x3/uL (130-400)
== END 2018-07-19 09:54 | disposition home or self-care (01) ==
LOC: D.OPS 05:45
PROVIDERS: Anesthesiology
DX: K63.5 Polyp of colon (principal); K62.3 Rectal prolapse; K64.8 Other hemorrhoids; Z01.812 Encounter for preprocedural laboratory examination

== ENCOUNTER 2019-05-07 12:14 | Inpatient (IN) | payer OTHER ==
[2019-05-07] VITALS: BP 105/58
[~2019-05-07] VITALS: Ht 157.5 cm; Wt 40.7 kg
[~2019-05-07 12:14] MED LIST changes: -NEURONTIN 300300 MG; +NEURONTIN 300300 MG PO
[2019-05-07 14:06] LABS: BASOPHILS 0.3 % (0-2); EOSINOPHILS 0.9 % (0-7); HEMATOCRIT 36.2 % (36.0-48.0); HEMOGLOBIN 12.3 g/dL (12-16); LYMPHOCYTES 29.3 % (15-50); MCH 33.3 pg (26.0-34.0); MCV 98.1 fL (80.0-100.0); NEUTROPHILS 64.5 % (40-80); PLATELET COUNT 218 10x3/uL (130-400); RBC 3.69 10x6/uL (4.00-5.40); WBC 6.4 10x3/uL (4.8-10.8)
[2019-05-07 14:48] LABS: ALBUMIN 3.5 g/dL (3.4-5.0); ALKALINE PHOSPHATASE 77 U/L (46-116); ALT (SGPT) 6 U/L (10-68); AMYLASE - SERUM 40 U/L (25-115); BILIRUBIN - TOTAL 0.46 mg/dL (0.2-1.3); CALC OSMOLALITY 280 mosm/kg (275-300); CALCIUM 8.7 mg/dL (8.5-10.1); CARBON DIOXIDE 26.3 mmol/L (21.0-32.0); CHLORIDE - SERUM 107 mmol/L (98-107); GLUCOSE 82 mg/dL (74-106); LIPASE 144 U/L (73-393); SODIUM 143 mmol/L (136-145); UREA NITROGEN 4 mg/dL (7-18)
[2019-05-07 15:23] LABS: CREATININE - SERUM 0.8 mg/dL (0.6-1.3); PROTEIN - SERUM 6.9 g/dL (6.4-8.2); eGFR NON AFRICAN AMERICAN 77 mL/min (90-120)
[2019-05-07 18:18] VITALS: BP 101/52
--- NOTE | 2019-05-07 19:30 | NUR ---
PT CARE ASSUMED. RR EVEN AND UNLABORED. NO S/S OF DISTRESS NOTED. NO NEEDS EXPRESSED. WILL CPOC.
[2019-05-07 20:00] VITALS: BP 121/62
[2019-05-08 04:00] VITALS: BP 98/50
[2019-05-08 05:15] LABS: BASOPHILS 0.1 % (0-2); EOSINOPHILS 0.5 % (0-7); HEMATOCRIT 35.2 % (36.0-48.0); HEMOGLOBIN 11.4 g/dL (12-16); IMMATURE GRANULOCYTES 0.2 % (0-5); LYMPHOCYTES 19.6 % (15-50); MCH 32.6 pg (26.0-34.0); MCHC 32.4 g/dL (31.0-37.0); MEAN PLATELET VOLUME 9.9 fL (7.4-10.4); MONOCYTES 5.4 % (2-11); NEUTROPHILS 74.2 % (40-80); PLATELET COUNT 237 10x3/uL (130-400); RDW 12.1 % (11.5-14.5)
[2019-05-08 05:26] LABS: MCV 100.6 fL (80.0-100.0); WBC 9.5 10x3/uL (4.8-10.8)
[2019-05-08 05:34] LABS: ALBUMIN 3.1 g/dL (3.4-5.0); ANION GAP 10.6 mmol/L (8-16); BILIRUBIN - TOTAL 0.18 mg/dL (0.2-1.3); CALCIUM 8.2 mg/dL (8.5-10.1); CARBON DIOXIDE 25.5 mmol/L (21.0-32.0); CREATININE - SERUM 0.9 mg/dL (0.6-1.3); POTASSIUM - SERUM 4.1 mmol/L (3.5-5.1); PROTEIN - SERUM 6.5 g/dL (6.4-8.2)
--- NOTE | 2019-05-08 07:57 | NUR ---
REPORT RECIEVED FROM TOOLING SPECIALIST. CO PAIN. PAIN LEVEL IS 9. MEDICATED WITH IV PAIN MED. DR. HOYOS ORDERED CT ABD WITH CONTRAST. EXPLAINED PROCEDURE TO PT.
[2019-05-08 09:20] VITALS: BP 98/53
[2019-05-08 13:35] VITALS: BP 162/78
[2019-05-08 14:53] VITALS: Ht 157.5 cm; Wt 40.7 kg
[2019-05-08 17:42] VITALS: BP 162/67
--- NOTE | 2019-05-08 17:44 | NUR ---
1300 UP TO TOILET WITHOUT ASSIST TOLERATED WELL
--- NOTE | 2019-05-08 17:44 | NUR ---
1500 RETURNED FROM RADIOLOGY WITH LEFRT AC IV OUT. WAS REMOVED BY RAD STAFF FOR LEAKING
--- NOTE | 2019-05-08 17:45 | NUR ---
1700 ASLEEP IN BED AWAKENS EASILY NO COMPLAINTS AT THIS TIME
--- NOTE | 2019-05-08 19:00 | NUR ---
PATIENT LAYING IN BED. NO COMPLAINTS AT THIS TIME. NO DISTRESS NOTED.
[2019-05-08 20:00] VITALS: BP 121/61
--- NOTE | 2019-05-08 21:00 | NUR ---
PATIENT TEARFUL AT THIS TIME. PATIENT STATES SHE RECENTLY LOST HER MOTHER IN [place] WHO LIVED WITH HER. PATIENT ALSO VERBALIZED HER LATE COMMITTED SUICIDE AND SHE IS HAVING A HARD TIME COPING. PATIENT DENIES ANY SUICIDAL THOUGHTS. PATIENT EXPRESSED THANKS FOR THIS NURSE TO LET HER VENT.
[2019-05-09] VITALS: BP 92/48
--- NOTE | 2019-05-09 02:31 | NUR ---
i have reviewed this patient and i concur with the shift assessment conducted by Licensed practical Nurse.
[2019-05-09 04:00] VITALS: BP 92/51
[2019-05-09 06:41] LABS: BASOPHILS 0.1 % (0-2); EOSINOPHILS 0.8 % (0-7); HEMOGLOBIN 10.8 g/dL (12-16); IMMATURE GRANULOCYTES 0.1 % (0-5); LYMPHOCYTES 35.9 % (15-50); MCH 32.6 pg (26.0-34.0); MCHC 32.7 g/dL (31.0-37.0); MCV 99.7 fL (80.0-100.0); MEAN PLATELET VOLUME 10.4 fL (7.4-10.4); MONOCYTES 8.7 % (2-11); NEUTROPHILS 54.4 % (40-80); RBC 3.31 10x6/uL (4.00-5.40); RDW 11.9 % (11.5-14.5); WBC 7.3 10x3/uL (4.8-10.8)
[2019-05-09 06:42] LABS: PLATELET COUNT 183 10x3/uL (130-400)
[2019-05-09 07:11] LABS: ALBUMIN 2.8 g/dL (3.4-5.0); ALKALINE PHOSPHATASE 63 U/L (46-116); BILIRUBIN - TOTAL 0.38 mg/dL (0.2-1.3); CALC OSMOLALITY 281 mosm/kg (275-300); CALCIUM 8.2 mg/dL (8.5-10.1); CARBON DIOXIDE 25.1 mmol/L (21.0-32.0); CHLORIDE - SERUM 111 mmol/L (98-107); CREATININE - SERUM 0.8 mg/dL (0.6-1.3); GLUCOSE 91 mg/dL (74-106); POTASSIUM - SERUM 4.5 mmol/L (3.5-5.1); SODIUM 143 mmol/L (136-145); UREA NITROGEN 5 mg/dL (7-18); eGFR NON AFRICAN AMERICAN 77 mL/min (90-120)
[2019-05-09 07:12] LABS: ALT (SGPT) 18 U/L (10-68)
--- NOTE | 2019-05-09 07:30 | NUR ---
REPORT RECIEVED. PT LYING SEMI FOWLERS. L CHEST PORT INFUSING D5 & K @ 125 and Zofran @ 4.7. BED LOCKED AND IN LOWEST POSITION. CALL LIGHT WITHIN REACH. RR EVEN AND UNLABORED. NO DISTRESS NOTED. WILL CTM
[2019-05-09 09:31] VITALS: BP 106/54
--- NOTE | 2019-05-09 12:46 | NUR ---
PT STATES NO BM SINCE TUESDAY, NO DOOCUMENTED BM SINCE ADMIT. STATES THAT HER STOOLS WERE NOT LIQUID WHEN SHE WAS HAVING THEM. DISCUSSED THIS FINDING WITH DR DENSON AND ORDER FOR STOOL CDT/CX CANCELLED DUE TO NOT MEETING CRITERIA TO TEST.
[2019-05-09 16:14] VITALS: BP 120/56
--- NOTE | 2019-05-09 17:51 | NUR ---
I have reviewed this patient and I concur with the Shift Assessment completed by the Licensed Practical Nurse today this shift.
--- NOTE | 2019-05-09 20:00 | NUR ---
PT SITTING UP IN BED ON PHONE ALERT AND ORIENTED. PT COMPLAINS OF 9/10 PAIN IN ABDOMEN. PRN PAIN MEDICATION GIVEN. WILL CONTINUE TO MONITOR.
--- NOTE | 2019-05-10 06:12 | NUR ---
I have reviewed this patient and I concur with the Shift Assessment completed by the Licensed Practical Nurse today this shift.
--- NOTE | 2019-05-10 07:30 | NUR ---
A/A/OX4. REMAIN NPO FOR EGD THIS AFTERNOON. PT IS AWARE OF THIS AND STATES SHE DOES NOT WANT ANYTHING DUE TO THE NAUSEA SHE HAS BEEN EXPERIENCING. NO EMESIS NOTED. REQUESTING MED FOR NAUSEA AND PHENERGAN GIVEN ORDERED. NO OTHER REQUESTS. ASSESSMENT COMPLETED AND WILL CONTINUE POC.
[2019-05-10 08:25] VITALS: BP 111/51
[2019-05-10 11:33] VITALS: BP 122/60
[2019-05-10 14:51] VITALS: BP 116/55
--- NOTE | 2019-05-10 17:15 | NUR ---
POST OP VS WNL. IV PATENT. CALL LIGHT IN REACH. WILL CONT. PLAN OF CARE.
--- NOTE | 2019-05-10 20:00 | NUR ---
ALERT RESTING IN BED, DENIES NEEDS AT THIS TIME, SEE SHIFT ASSESSMENT, CALL LIGHT IN REACH
[2019-05-10 20:27] VITALS: BP 135/63
--- NOTE | 2019-05-10 21:05 | NUR ---
DR RODRIGUEZ PAGED ONCALL FOR PT C/O OF PAIN AND DILAUDID CHANGED TO Q 6 HR FROM Q 2 HRS, ORDERS RECIEVED TO CHANGE TO Q 4 HRS, GIVEN ORDERED
[2019-05-11 00:27] VITALS: BP 121/63
--- NOTE | 2019-05-11 03:21 | NUR ---
I have reviewed this patient and I concur with the Shift Assessment completed by the Licensed Practical Nurse today this shift.
[2019-05-11 04:19] VITALS: BP 107/64
[2019-05-11 05:56] LABS: BASOPHILS 0.2 % (0-2); EOSINOPHILS 1.4 % (0-7); HEMATOCRIT 28.7 % (36.0-48.0); HEMOGLOBIN 9.8 g/dL (12-16); LYMPHOCYTES 26.1 % (15-50); MCH 32.8 pg (26.0-34.0); MCHC 34.1 g/dL (31.0-37.0); MEAN PLATELET VOLUME 10.2 fL (7.4-10.4); MONOCYTES 14.1 % (2-11); NEUTROPHILS 58.2 % (40-80); PLATELET COUNT 167 10x3/uL (130-400); RBC 2.99 10x6/uL (4.00-5.40); RDW 11.6 % (11.5-14.5); WBC 4.3 10x3/uL (4.8-10.8)
[2019-05-11 06:18] LABS: ALBUMIN 2.6 g/dL (3.4-5.0); ALKALINE PHOSPHATASE 68 U/L (46-116); ALT (SGPT) 19 U/L (10-68); BILIRUBIN - TOTAL 0.43 mg/dL (0.2-1.3); CALC OSMOLALITY 278 mosm/kg (275-300); CALCIUM 8.2 mg/dL (8.5-10.1); CARBON DIOXIDE 29.8 mmol/L (21.0-32.0); CHLORIDE - SERUM 107 mmol/L (98-107); CREATININE - SERUM 0.7 mg/dL (0.6-1.3); GLUCOSE 99 mg/dL (74-106); POTASSIUM - SERUM 3.8 mmol/L (3.5-5.1); PROTEIN - SERUM 6.2 g/dL (6.4-8.2); SODIUM 142 mmol/L (136-145); UREA NITROGEN 2 mg/dL (7-18); eGFR NON AFRICAN AMERICAN 90 mL/min (90-120)
--- NOTE | 2019-05-11 07:45 | NUR ---
A/A/OX4. RESTING QUIETLY WITN NO REQUESTS VOICED. ASKED WHEN SHE CAN HAVE PAIN MED AGAIN WITH PAIN 02/26. INFORMED NEXT DOSE COULD BE GIVEN AT 10 AND SHE WILL WAIT FOR THAT. ASSESSMENT COMPLETED AND WILL CONTINUE POC. BED IN LOW POSITION AND CALL LIGHT IN REACH.
[2019-05-11 08:32] VITALS: BP 120/60
[2019-05-11 11:34] VITALS: BP 117/56
--- NOTE | 2019-05-11 11:44 | NUR ---
PT WANTING TO GO BACK TO CLEAR LIQUID DIET, STATES THE FULL LIQUIDS MADE HER STOMACH HURT MORE THIS MORNING. ALSO STATES SHE HAS HAD 4 LOOSE STOOLS THIS MORNING AND WOULD LIKE TO HAVE SOMETHING FOR DIARRHEA. CALL TO DR. REILLY NURSE AND SHE WILL CALL ME BACK.
--- NOTE | 2019-05-11 13:44 | NUR ---
I have reviewed this patient and I concur with the Shift Assessment completed by the Licensed Practical Nurse today this shift.
--- NOTE | 2019-05-11 14:07 | NUR ---
Nutrition Follow-up: Diet advanced to full liquids this AM but pt did not tolerate; reported N/V with loose stools. Pt requested to be on clear liquids. States she is still experiencing nausea but no vomiting. Diet: Clear Liquid No new wt Labs reviewed Meds reviewed Rec continue to ADAT. [place] food preferences within diet restrictions. May consider Procalamine if unable to advance past clear liquids within 24-[address] following.
[2019-05-11 16:23] VITALS: BP 118/61
--- NOTE | 2019-05-11 19:16 | NUR ---
EVENING ROUNDS COMPLETE. PT SITTING UP IN BED. NO SIGNS OF DISTRESS, NO C/O PAIN AT THIS TIME. CL IN REACH, BED IN LOWEST POSITION. CONT WITH POC.
[2019-05-11 20:00] VITALS: BP 142/59
[2019-05-12] VITALS: BP 126/53
[2019-05-12 05:05] LABS: BASOPHILS 0.3 % (0-2); EOSINOPHILS 2.9 % (0-7); HEMATOCRIT 27.7 % (36.0-48.0); HEMOGLOBIN 9.4 g/dL (12-16); LYMPHOCYTES 40.2 % (15-50); MCH 32.9 pg (26.0-34.0); MCHC 33.9 g/dL (31.0-37.0); MCV 96.9 fL (80.0-100.0); MEAN PLATELET VOLUME 10.3 fL (7.4-10.4); MONOCYTES 16.4 % (2-11); NEUTROPHILS 40.2 % (40-80); PLATELET COUNT 171 10x3/uL (130-400); RBC 2.86 10x6/uL (4.00-5.40); RDW 11.6 % (11.5-14.5); WBC 3.4 10x3/uL (4.8-10.8)
[2019-05-12 05:42] LABS: CALC OSMOLALITY 280 mosm/kg (275-300); CALCIUM 8.1 mg/dL (8.5-10.1); CARBON DIOXIDE 28.4 mmol/L (21.0-32.0); CHLORIDE - SERUM 109 mmol/L (98-107); CREATININE - SERUM 0.7 mg/dL (0.6-1.3); GLUCOSE 91 mg/dL (74-106); POTASSIUM - SERUM 3.7 mmol/L (3.5-5.1); SODIUM 143 mmol/L (136-145); UREA NITROGEN 2 mg/dL (7-18); eGFR NON AFRICAN AMERICAN 90 mL/min (90-120)
--- NOTE | 2019-05-12 07:08 | NUR ---
REPORT RECEIVED, SHE IS ALERT AND ORIENT. ABLE TO VOICE NEEDS. SHE HAS PICC LINE INTACT TO RIGHT UPPER ARM AND INFUSAPORT TO LEFT CHEST WITH ZOFRAN DRIP AND D5NS WITH 20 K INFUSING. SHE SAYS HER STOMACH HURTS ON AND OFF AND SHE HAS NAUSEA ALOT. RESP EVEN WITHOUT LABOR. SHE CAN ONLY TOLERATE CLEAR LIQUID DIET AT THIS TIME. BED IS IN LOWEST POSITION AND LOCKED. CAREPLAN REVIEW DONE WITH SAFETY PRECAUSIONS IN PLACE
[2019-05-12 09:14] VITALS: BP 120/53
[2019-05-12 12:58] VITALS: BP 131/45
[2019-05-12 16:49] VITALS: BP 137/63
--- NOTE | 2019-05-12 18:17 | NUR ---
SHE HAS HAD ABDOMINAL PAIN ON AND OFF TODAY AND HAS BEEN MEDICATED FOR BOTH PAIN AND NAUSEA. NO VOMITING NOTED. CL IN REACH
--- NOTE | 2019-05-12 19:15 | NUR ---
REPORT RECEIVED FROM DAY SHIFT, PT CARE ASSUMED. INTRODUCED SELF AND WROTE NAME ON BOARD, PT LYING AWAKE IN BED, AAOX4, DENIES ANY NEEDS AT THIS TIME. BED IN LOWEST POSITION, SR X2, CALL LIGHT WITHIN REACH. WILL CONTINUE TO MONITOR.
[2019-05-12 21:29] VITALS: BP 124/61
--- NOTE | 2019-05-12 23:15 | NUR ---
TRANSFER CENTER CALLED, UPDATING STATUS ON PT'S PLACEMENT. STATES THAT THE FACILITIES HAVE DENIED HER ADMISSION AT THIS TIME.
[2019-05-13 00:05] VITALS: BP 123/36
--- NOTE | 2019-05-13 03:43 | NUR ---
PT LYING IN BED WITH EYES CLOSED, RR EVEN AND NONLABORED, NO S/S OF DISTRESS, EASILY AROUSED BY VOICE. DENIES ANY NEEDS AT THIS TIME. BED IN LOWEST POSITION, SR X2, CALL LIGHT WITHIN REACH. WILL CONTINUE TO MONITOR.
[2019-05-13 06:12] VITALS: BP 137/58
--- NOTE | 2019-05-13 08:03 | NUR ---
PATIENT IS ASKING FOR HER PAIN MEDICATION, HOWEVER IT HAS NOT BEEN LONG ENOUGH TO GIVE THE NEXT DOSE. WILL CONTINUE TO MONITOR CLOSELY. PATIENT IS LAYING IN BED WITH EYES CLASED , RESTING QUIETLY. DENIES ANY OTHER NEEDS.
[2019-05-13 08:08] VITALS: BP 127/60
[2019-05-13 11:40] VITALS: BP 131/64
--- NOTE | 2019-05-13 13:53 | NUR ---
PATIENT IS REQUESTING THAT HER PICC LINE BE USED FOR BLOOD DRAW, AND LEFT CHEST PORT BE USED FOR MEDICINE.
[2019-05-13 16:52] VITALS: BP 113/53
--- NOTE | 2019-05-13 18:40 | NUR ---
PATIENT REPORTS DECREASED NAUSEA. SHE STARTED ON THE FULL LIQUID DIET AND THEN HAD DIARREAH. PATIENT REQUEST THAT I WRITE DOWN HER MEDICATIONS AND WHEN THEY ARE DUE NEXT. SHE IS TEARFUL ABOUT HER FAMILY AND DEATHS THAT SHE HAS HAD IN HER FAMILY IN RECENT YEARS.
--- NOTE | 2019-05-13 19:35 | NUR ---
PT KNOWS TIMES FOR ALL PRN MEDS AND TELLING ME TO BRING THEM WHEN THEY ARE AVAILABLE SKIN WARM AND DRY IV FLUIDS TO RT CHEST PORT ALSO HAS PIC LINE TO RT ARM CALL LIGHT IS IN REACH AND BED IS LOW AND LOCKED
[2019-05-13 20:00] VITALS: BP 117/60
[2019-05-14] VITALS: BP 128/58
[2019-05-14 04:00] VITALS: BP 130/60
--- NOTE | 2019-05-14 04:48 | NUR ---
I have reviewed this patient and I concur with the Shift Assessment completed by the Licensed Practical Nurse today this shift.
[2019-05-14 05:22] LABS: BASOPHILS 0.4 % (0-2); EOSINOPHILS 3.6 % (0-7); HEMATOCRIT 29.8 % (36.0-48.0); HEMOGLOBIN 9.9 g/dL (12-16); LYMPHOCYTES 36.8 % (15-50); MCH 32.2 pg (26.0-34.0); MCHC 33.2 g/dL (31.0-37.0); MCV 97.1 fL (80.0-100.0); MEAN PLATELET VOLUME 10.1 fL (7.4-10.4); MONOCYTES 8.3 % (2-11); NEUTROPHILS 50.9 % (40-80); PLATELET COUNT 189 10x3/uL (130-400); RBC 3.07 10x6/uL (4.00-5.40); RDW 11.6 % (11.5-14.5); WBC 4.5 10x3/uL (4.8-10.8)
[2019-05-14 05:39] LABS: ANION GAP 7.5 mmol/L (8-16); CARBON DIOXIDE 30.8 mmol/L (21.0-32.0); CREATININE - SERUM 0.9 mg/dL (0.6-1.3); POTASSIUM - SERUM 4.3 mmol/L (3.5-5.1)
[2019-05-14 08:17] VITALS: BP 137/54
--- NOTE | 2019-05-14 10:32 | NUR ---
PATIENT SITTING UP IN BED, TALKING ON THE PHONE AND EATTING. SHE REPORTS PAIN OF AN 8 OR 9 , BEFORE AND AFTER HER PAIN MEDICATION.
[2019-05-14 12:10] VITALS: BP 126/58
--- NOTE | 2019-05-14 14:30 | NUR ---
Nutrition Follow-up: Diet advanced to full liquid yesterday. Continues to report diarrhea after eating and nausea. Diet: Full liquid PO intake: 60% avg x 6 meals (05/12-05/13) Last BM: 05/13 Noted new wt 83#; rec reweigh. Previous wt was 150# Labs noted: Ca 8.0, K+ 4.3 Meds noted: Remeron, Reglan, Pancrease, Carafate, D5NS KCl 20 mEq @ 125 mL/hr Rec continue to advance diet as tolerated. +Ensure with meals. [place] food preferences within diet restrictions. RD following.
[2019-05-14 15:31] VITALS: BP 135/72
--- NOTE | 2019-05-14 18:08 | NUR ---
LEFT TOE NEEDS A WOUND CONSULT. NAIL IS INFECTED.
--- NOTE | 2019-05-14 19:00 | NUR ---
PATIENT SITTING UP IN BED. NO COMPLAINTS AT THIS TIME. NO DISTRESS NOTED.
[2019-05-14 20:00] VITALS: BP 123/60
--- NOTE | 2019-05-15 00:50 | NUR ---
PATIENT LAYING IN BED, EYES CLOSED, CHEST RISING AND FALLING. NO DISTRESS NOTED.
[2019-05-15 04:00] VITALS: BP 109/58
[2019-05-15 09:29] VITALS: BP 113/54
[2019-05-15 11:58] VITALS: BP 123/72
[2019-05-15 14:56] VITALS: BP 136/71
--- NOTE | 2019-05-15 15:15 | NUR ---
PHENERGAN ADMINISTERED VIA THIS HUMAN RESOURCES DISTRICT MANAGER. RESTING IN BED COMPLAINING OF NAUSEA. NO OTHER COMPLAINTS AT THIS TIME.
--- NOTE | 2019-05-15 16:20 | NUR ---
I have reviewed this patient and I concur with the Shift Assessment completed by the Licensed Practical Nurse today this shift.
--- NOTE | 2019-05-15 19:00 | NUR ---
PATIENT SITTING UP IN BED. NO COMPLAINTS AT THIS TIME. NO DISTRESS NOTED.
[2019-05-15 20:00] VITALS: BP 121/55
--- NOTE | 2019-05-16 02:09 | NUR ---
I have reviewed this patient and I concur with the Shift Assessment completed by the Licensed Practical Nurse today this shift.
[2019-05-16 04:00] VITALS: BP 120/58
[2019-05-16 05:29] LABS: BASOPHILS 0.2 % (0-2); EOSINOPHILS 2.4 % (0-7); HEMATOCRIT 29.5 % (36.0-48.0); HEMOGLOBIN 9.7 g/dL (12-16); LYMPHOCYTES 21.8 % (15-50); MCHC 32.9 g/dL (31.0-37.0); MCV 97.4 fL (80.0-100.0); MEAN PLATELET VOLUME 10.2 fL (7.4-10.4); MONOCYTES 9.2 % (2-11); NEUTROPHILS 66.4 % (40-80); PLATELET COUNT 206 10x3/uL (130-400); RBC 3.03 10x6/uL (4.00-5.40); RDW 11.6 % (11.5-14.5); WBC 4.9 10x3/uL (4.8-10.8)
[2019-05-16 05:44] LABS: ANION GAP 9.1 mmol/L (8-16); CALCIUM 8.3 mg/dL (8.5-10.1); CREATININE - SERUM 0.9 mg/dL (0.6-1.3); POTASSIUM - SERUM 4.1 mmol/L (3.5-5.1)
--- NOTE | 2019-05-16 07:00 | NUR ---
PT RESTIN COMFORTABLY UPON ENTERING WITH EYES CLOSED. BREATHING EVEN AND UNLABORED, NO S/S OF DISTRESS NOTED. BED IN LOWEST POSITION, BED RAILS X2,CALL LIGHT WITHIN REACH. WILL CTM.
--- NOTE | 2019-05-16 08:34 | NUR ---
ADMINISTERED MEDICATION AT THIS TIME, NO TROUBLE SWALLOWING. ADMINISTERED PRN DILAUDID FOR PAIN OF 9/10 PER PT STATEMENT. DENIES OTHER NEEDS. WILL CTM.
[2019-05-16 08:47] VITALS: BP 136/72
[2019-05-16 08:53] VITALS: BP 136/72
--- NOTE | 2019-05-16 09:39 | MORECARE ---
CASE MANAGEMENT DISCHARGE SUMMARY PATIENT: REBECCA WHITFIELD UNIT: [id number] ADM DATE: 05/07/19 AGE: 63 : 56 SEX: F ROOM/BED: D.2137 AUTHOR: NOVA LEI PHYSICIAN: REFERRING PHYSICIAN: MONTANA HOYOS MD DATE OF SERVICE: 05/16/19 Discharge Plan Patient Name: REBECCA WHITFIELD [facility] [facility] 1955 Planned Disposition: Home Anticipated Discharge Date: 05/16/19 Discharge Date: Expected LOS: 9 Initial Reviewer: [email or web address] Initial Review Date: 05/07/2019 Generated: 05/16/19 10:39 am Patient Name: REBECCA WHITFIELD Page [id number] at 0939 All edits/amendments must be made on the electronic document DICTATION DATE: 05/16/19938 HORIZONTAL DRILL OPERATOR: SHANTELLE 05/16/19938 RPT#: [id number] DC DATE: STATUS: ADM IN [facility] [address] [place] [address] END OF REPORT
--- NOTE | 2019-05-16 09:47 | MORECARE ---
CASE MANAGEMENT DISCHARGE SUMMARY PATIENT: REBECCA WHITFIELD UNIT: [id number] ADM DATE: 05/07/19 AGE: 63 : 57 SEX: F ROOM/BED: D.0760 AUTHOR: DODOC PHYSICIAN: REFERRING PHYSICIAN: MONTANA HOYOS MD DATE OF SERVICE: 05/16/19 Discharge Plan Patient Name: REBECCA WHITFIELD Facility: [facility]:[place] : 1955 Planned Disposition: Home Anticipated Discharge Date: 05/16/19 Discharge Date: Expected LOS: 9 Initial Reviewer: [email or web address] Initial Review Date: 05/07/2019 Generated: 05/16/19 10:46 am Comments DCP- Discharge Planning Updated by [email or web address]: Shyam Rick on 05/16/19 8:[address] Patient Name: REBECCA WHITFIELD Admission Status: Elective Accout number: [id number] Admission Date: 05-07-2019 : 1955 Admission Diagnosis:UNSPECIFIED ABDOMINAL PAIN Attending: MONTANA HOYOS Current LOS: 9 Anticipated DC Date: 05-16-2019 Planned Disposition: Home Primary Insurance: [id number] Discharge Planning Comments: CM MET WITH PT IN ROOM TO DISCUSS DISCHARGE PLANNING AND NEEDS. PT REPORTS LIVING AT HOME INDEPENDENTLY AND ALONE. PT HAS NO MEDICAL EQUIPMENT AND PREFERS [facility] [place] PROVIDER. PT HAS NO OUTSIDE SERVICES ASSISTING IN THE HOME. CM DISCUSSED AVAILABILITY OF HOME HEALTH, REHAB SERVICES AND MEDICAL EQUIPMENT. PT DENIES DISCHARGE NEEDS, REPORTS HER DAUGHTER WILL PICK HER UP FOR DISCHARGE HOME. IMPORTANT MESSAGE FROM MEDICARE PROVIDED AND EXPLAINED. PT ASKED ABOUT MOM'S MEALS THAT SHE HAD LAST YEAR. CM EXPLORED CHART WHICH INDICATED IT WAS ARRANGED BY HER INSURANCE COMPANY. CM PROVIDED PT WITH MOM'S MEALS CONTACT INFORMATION, PT WANTS INSURANCE TO PAY AGAIN FOR SERVICES, CM ADVISED PT TO CALL HER INSURANCE COMPANY CUSTOMER SERVICE NUMBER WITH THE REQUEST. PT PLANS TO DISCHARGE HOME ALONE, FAMILY TO TRANSPORT. PT HAS NO ANTICIPATED DISCHARGE NEEDS. CM TO FOLLOW AND ASSIST IF NEEDED. Radioactivity Technician: Shyam Rick DCPIA - Discharge Planning Initial Assessment Updated by [email or web address]: Shyam Rick on 05/16/19 9:46 am * Is the patient Alert and Oriented? Yes * How many steps to enter\exit or inside your home? 10 * PCP DR. HOYOS * Pharmacy [facility] * Preadmission Environment Home Alone * ADLs Independent * Equipment None * Other Equipment [facility] - MEDICAL EQUIPMENT PROVIDER * List name and contact numbers for known caregivers / representatives who currently or will assist patient after discharge: KARSON MAGALIE, DTR, * Verbal permission to speak to the caregivers and representatives has been obtained from the patient. N/A * Community resources currently utilized None * Please name any agencies selected above. NONE * Additional services required to return to the preadmission environment? No * Can the patient safely return to the preadmission environment? Yes * Has this patient been hospitalized within the prior 30 days at any hospital? No Last DP export: 05/16/19 8:40 a Patient Name: REBECCA WHITFIELD Page [phone] at 0947 All edits/amendments must be made on the electronic document DICTATION DATE: 05/16/19945 RO[address] FREIGHT BRAKE COUPLER: SHANTELLE 05/16/19945 RPT#: [id number] DC DATE: STATUS: ADM IN [facility] [address] [place] [address] END OF REPORT
--- NOTE | 2019-05-16 11:24 | NUR ---
ADMINISTERED PRN IMMODIUM PER PT REQUEST. NO TROUBLE SWALLWOING. RESTINGIN COMFORTABLY. REQUESTS PRN MEDICATIONS BE READJUSTED/RESCHEDULED. DENIES OTHER NEEDS. WILL CTM.
--- NOTE | 2019-05-16 12:02 | NUR ---
ADMINISTERED MEDICATION AT THIS TIME, NO TROUBLE SWALLOWING. PT SITTING UP EATING LUNCH AT THIS TIME. DENIES ANY NEEDS. WILL CTM.
[2019-05-16 12:52] VITALS: BP 129/69
--- NOTE | 2019-05-16 13:46 | NUR ---
ADMINISTERED PRN MEDICATION AT THIS TIME. KLONIPIN, DILAUDID AND PROMETHAZINE. HUNG NEW IV FLUID BAG. PT UPRIGHT CLEANING AND CHANGING DRESSING ON LEFT GREAT TOE. DENIES ANY NEEDS. WILL CTM.
--- NOTE | 2019-05-16 16:12 | NUR ---
I have reviewed this patient and I concur with the Shift Assessment completed by the Licensed Practical Nurse today this shift.
--- NOTE | 2019-05-16 16:20 | NUR ---
ADMINISTERED MEDICATION, NO TROUBLE SWALLOWING. STOPPED ZOFRAN DRIP PER MILANA SILVERIO. DENIES ANY NEEDS AT THIS TIME. WILL CTM.
[2019-05-16 16:27] VITALS: BP 123/76
[2019-05-17] VITALS: BP 104/49
[2019-05-17 04:00] VITALS: BP 131/68
--- NOTE | 2019-05-17 08:00 | NUR ---
PT RESTING IN BED, SHIFT ASSESSMENT PERFORMED DENIES ANY NEEDS AT THIS TIME, WILL CONT TO FOLLOW POC
[2019-05-17 09:55] VITALS: BP 108/60
--- NOTE | 2019-05-17 12:20 | NUR ---
PT RESTING IN BED, DENIES ANY NEEDS AT THIS TIME, WILL CONT TO FOLLOW POC
[2019-05-17 14:47] VITALS: BP 96/42
--- NOTE | 2019-05-17 17:20 | NUR ---
PT RESTING IN BED EATING SUPPER, DENIES ANY NEEDS AT THIS TIME, WILL CONT TO FOLLOW POC
--- NOTE | 2019-05-17 19:53 | NUR ---
PT CARE ASSUMED. RESING IN BED. RR EVEN AND UNLABORED. NO S/S OF DISTRESS NOTED AT THIS TIME. DENIES NEEDS. CALL LIGHT IN REACH. WILL CTM.
[2019-05-17 20:00] VITALS: BP 133/69
[2019-05-18] VITALS: BP 132/60
[2019-05-18 04:00] VITALS: BP 117/62
[2019-05-18 08:00] VITALS: BP 110/53
--- NOTE | 2019-05-18 11:22 | NUR ---
Nutrition Follow-up: Diet advanced. Pt reports some nausea but no vomiting. Last BM Tuesday (diarrhea). Ordering Ensure with meals. Diet: [place]/GI PO intake: 50-100% (05/17) Wt: 89# Labs reviewed Meds reviewed Continue current diet as tolerated. [place] food preferences within diet restrictions. RD following.
[2019-05-18 11:29] LABS: BASOPHILS 0.3 % (0-2); EOSINOPHILS 2.1 % (0-7); HEMATOCRIT 28.4 % (36.0-48.0); HEMOGLOBIN 9.4 g/dL (12-16); IMMATURE GRANULOCYTES 0.2 % (0-5); LYMPHOCYTES 27.3 % (15-50); MCH 32.5 pg (26.0-34.0); MCHC 33.1 g/dL (31.0-37.0); MCV 98.3 fL (80.0-100.0); MEAN PLATELET VOLUME 9.9 fL (7.4-10.4); MONOCYTES 9.4 % (2-11); NEUTROPHILS 60.7 % (40-80); PLATELET COUNT 240 10x3/uL (130-400); RBC 2.89 10x6/uL (4.00-5.40); RDW 11.7 % (11.5-14.5); WBC 6.1 10x3/uL (4.8-10.8)
[2019-05-18 11:50] LABS: ANION GAP 12.4 mmol/L (8-16); CARBON DIOXIDE 28.8 mmol/L (21.0-32.0); CREATININE - SERUM 0.9 mg/dL (0.6-1.3); POTASSIUM - SERUM 4.2 mmol/L (3.5-5.1)
[2019-05-18 12:00] VITALS: BP 107/48
--- NOTE | 2019-05-18 12:52 | NUR ---
THE PATIENT APPEARED TO BE SLEEPING BUT EASILY AWOKE WHEN STAFF ENTERED HER ROOM. BED IS IN THE LOW POSITION WITH SIDERAILS X2 AND CALL LIGHT WITHIN REACH. THE PATIENT WAS EDUCATED ON THE USE OF A CALL LIGHT AND DEMONSTRATES UNDERSTANDING VIA TEACHBACK METHOD. THE PATIENT APPEARS COMFORTABLE WITH NO QUESTIONS OR CONCERNS AT THIS TIME.
[2019-05-18 14:45] VITALS: BP 115/57
[2019-05-18 20:00] VITALS: BP 130/59
--- NOTE | 2019-05-18 20:15 | NUR ---
RPEORT RECIEVED AND ROUNDING COMPLETE. PATINET LAYING IN BED IN A SUPINE POSITION. PATIENT GAVE ME HER FULL MEDICAL AND PERSONAL HISTORY. PATIENT HAS A RIGHT UPPER ARM MIDLINE THAT HAS NO S/SX OF INFECTION OR INFILTRATION. PATIENT ALSO HAS A LEFT CHEST PORT, DRESSING C/D/I. PATIENT STATES SHE IS IN A BIT OF PAIN BUT WISHES TO GO HOME TOMORROW. PATIENT AND I TALKED IN GREAT LENGHT ABOUT PAIN CONTROL AT HOME. PATIENT STATES SHE IS WILLING TO RISK THE PAIN LONG SHE IS AT HOME AND WORSE COME TO WORSE SHE CAN ALWAYS COME BACK TO THE HOSPITAL IF NEEDED. PATIENT HAS NO OTHER NEEDS AT THIS TIME JUST REQUESTED TO BRING HER PAIN MEDS SOON SHE CAN HAVE THEM. PATIENT RATING PAIN A 7 OUT OF 10 ON THE PAIN SCALE. PATIENT IS SHOWING NO S/SX OF DISTRESS AT THIS TIME. CALL LIGHT WITHIN REACH AND BED IN LOWEST LOCKED POSITION.
[2019-05-19 04:00] VITALS: BP 146/81
--- NOTE | 2019-05-19 07:23 | NUR ---
I have reviewed this patient and I concur with the Shift Assessment completed by the Licensed Practical Nurse today this shift.
[2019-05-19 08:10] VITALS: BP 130/67
[2019-05-19] MEDS ORDERED: PERCOCET 7.5/321 TAB PO (08:20)
--- NOTE | 2019-05-19 09:22 | NUR ---
ALERT AND ORIENTED. NO DISTRESS NOTED. CL IN REACH. RESP EVEN AND UNLABORED.
--- NOTE | 2019-05-19 11:20 | MORECARE ---
CASE MANAGEMENT DISCHARGE SUMMARY PATIENT: REBECCA WHITFIELD UNIT: [id number] ADM DATE: 05/07/19 AGE: 63 : 57 SEX: F ROOM/BED: D.2658 AUTHOR: NOVA LEI PHYSICIAN: REFERRING PHYSICIAN: MONTANA HOYOS MD DATE OF SERVICE: 05/19/19 Discharge Plan Patient Name: REBECCA WHITFIELD Facility: [facility]:[place] : 1955 Planned Disposition: Home Anticipated Discharge Date: 05/16/19 Discharge Date: Expected LOS: 9 Initial Reviewer: [email or web address] Initial Review Date: 05/07/2019 Generated: 05/19/19 12:20 pm Comments DCP- Discharge Planning Updated by [email or web address]: Amanda Cazares on 05/19/19 10:[address] Patient Name: REBECCA WHITFIELD Encounter No: [id number] : 1955 Primary Insurance: [employer] Anticipated DC Date: 05-16-2019 Planned Disposition: Home External Planned Provider: : DCP follow-up note: Patient and family in agreement with discharge plan. No changes to plan. Case management will follow and assist as needed. Amanda Cazares DCP- Discharge Planning Updated by [email or web address]: Shyam Rick on 05/16/19 8:[address] Patient Name: REBECCA WHITFIELD Admission Status: Elective Accout number: [id number] Admission Date: 05-07-2019 : 1955 Admission Diagnosis:UNSPECIFIED ABDOMINAL PAIN Attending: MONTANA HOYOS Current LOS: 9 Anticipated DC Date: 05-16-2019 Planned Disposition: Home Primary Insurance: NOVASYSMCR Discharge Planning Comments: CM MET WITH PT IN ROOM TO DISCUSS DISCHARGE PLANNING AND NEEDS. PT REPORTS LIVING AT HOME INDEPENDENTLY AND ALONE. PT HAS NO MEDICAL EQUIPMENT AND PREFERS [facility] PROVIDER. PT HAS NO OUTSIDE SERVICES ASSISTING IN THE HOME. CM DISCUSSED AVAILABILITY OF HOME HEALTH, REHAB SERVICES AND MEDICAL EQUIPMENT. PT DENIES DISCHARGE NEEDS, REPORTS HER DAUGHTER WILL PICK HER UP FOR DISCHARGE HOME. IMPORTANT MESSAGE FROM MEDICARE PROVIDED AND EXPLAINED. PT ASKED ABOUT MOM'S MEALS THAT SHE HAD LAST YEAR. CM EXPLORED CHART WHICH INDICATED IT WAS ARRANGED BY HER INSURANCE COMPANY. CM PROVIDED PT WITH MOM'S MEALS CONTACT INFORMATION, PT WANTS INSURANCE TO PAY AGAIN FOR SERVICES, CM ADVISED PT TO CALL HER INSURANCE [employer] CUSTOMER SERVICE NUMBER WITH THE REQUEST. PT PLANS TO DISCHARGE HOME ALONE, FAMILY TO TRANSPORT. PT HAS NO ANTICIPATED DISCHARGE NEEDS. CM TO FOLLOW AND ASSIST IF NEEDED. Brood Station Manager: Shyam Davidsonwell DCPIA - Discharge Planning Initial Assessment Updated by [email or web address]: Shyam Rick on 05/16/19 9:46 am * Is the patient Alert and Oriented? Yes * How many steps to enter\exit or inside your home? 10 * PCP DR. HOYOS * Pharmacy [facility] * Preadmission Environment Home Alone * ADLs Independent * Equipment None * Other Equipment [facility] - MEDICAL EQUIPMENT PROVIDER * List name and contact numbers for known caregivers / representatives who currently or will assist patient after discharge: KARSON MEJIAS, DTR, * Verbal permission to speak to the caregivers and representatives has been obtained from the patient. N/A * Community resources currently utilized None * Please name any agencies selected above. NONE * Additional services required to return to the preadmission environment? No * Can the patient safely return to the preadmission environment? Yes * Has this patient been hospitalized within the prior 30 days at any hospital? No Coverage Notice Reviewer: [id number] - Shyam Rick Notice Issued Date-Time: 05/16/2019 8:25 Notice Type: IM Discharge Notice Notice Delivered To: Patient Relationship to Patient: Waxer Name: Delivery Method: HAND - Hand Delivered Micheline Days: Prior Verbal Notification: Recipient Understood Notice: Yes Recipient Signature: Yes Med Rec Note Co-signed by Attending: Coverage Notice Comment: Reviewer: [id number] - Amanda Cazares Notice Issued Date-Time: 05/19/2019 11:12 Notice Type: IM Discharge Notice Notice Delivered To: Patient Relationship to Patient: Waxer Name: Delivery Method: HAND - Hand Delivered Micheline Days: Prior Verbal Notification: Recipient Understood Notice: Yes Recipient Signature: Yes Med Rec Note Co-signed by Attending: Coverage Notice Comment: Last DP export: 05/16/19 8:46 a Patient Name: REBECCA WHITFIELD Page [id number] at 1120 All edits/amendments must be made on the electronic document DICTATION DATE: 05/19/19 111 BELL RINGER: SHANTELLE 05/19/19 1119 RPT#: [id number] DC DATE: STATUS: ADM IN [facility] [address] [place] [address] END OF REPORT
--- NOTE | 2019-05-19 13:42 | NUR ---
DC'D R ARM MIDLINE WITH CATH INTACT. PRESSURE APPLIED/DRY DRESSING PLACED. ALIYAH DHILLON DC'D FROM [facility]. DRESSING APPLIED. JERRY WILL PICK PATIENT UP FOR DC HOME TODAY.
--- NOTE | 2019-05-19 13:53 | NUR ---
ASSISTED TO CAR IN PER STAFF FOR [facility]
--- NOTE | 2019-05-20 11:59 | MORECARE ---
CASE MANAGEMENT DISCHARGE SUMMARY PATIENT: REBECCA WHITFIELD UNIT: [id number] ADM DATE: 05/07/19 AGE: 63 : 57 SEX: F ROOM/BED: D.8355 AUTHOR: NOVA LEI PHYSICIAN: REFERRING PHYSICIAN: MONTANA HOYOS MD DATE OF SERVICE: 05/20/19 Discharge Plan Patient Name: REBECCA WHITFIELD Facility: [facility]:[place] : 1955 Planned Disposition: Home Anticipated Discharge Date: 05/16/19 Discharge Date: 05/19/2019 Expected LOS: 9 Initial Reviewer: [email or web address] Initial Review Date: 05/07/2019 Generated: 05/20/19 12:58 pm Comments DCP- Discharge Planning Updated by [email or web address]: Amanda Cazares on 05/19/19 10:[address] Patient Name: REBECCA WHITFIELD Encounter No: [id number] : 1955 Primary Insurance: [employer] Anticipated DC Date: 05-16-2019 Planned Disposition: Home External Planned Provider: : DCP follow-up note: Patient and family in agreement with discharge plan. No changes to plan. Case management will follow and assist as needed. Amanda Cazares DCP- Discharge Planning Updated by [id number]: Shyam Rick on 05/16/19 8:[address] Patient Name: REBECCA WHITFIELD Admission Status: Elective Accout number: [id number] Admission Date: 05-07-2019 : 1955 Admission Diagnosis:UNSPECIFIED ABDOMINAL PAIN Attending: MONTANA HOYOS Current LOS: 9 Anticipated DC Date: 05-16-2019 Planned Disposition: Home Primary Insurance: NOVASYSMCR Discharge Planning Comments: CM MET WITH PT IN ROOM TO DISCUSS DISCHARGE PLANNING AND NEEDS. PT REPORTS LIVING AT HOME INDEPENDENTLY AND ALONE. PT HAS NO MEDICAL EQUIPMENT AND PREFERS [facility] PROVIDER. PT HAS NO OUTSIDE SERVICES ASSISTING IN THE HOME. CM DISCUSSED AVAILABILITY OF HOME HEALTH, REHAB SERVICES AND MEDICAL EQUIPMENT. PT DENIES DISCHARGE NEEDS, REPORTS HER DAUGHTER WILL PICK HER UP FOR DISCHARGE HOME. IMPORTANT MESSAGE FROM MEDICARE PROVIDED AND EXPLAINED. PT ASKED ABOUT MOM'S MEALS THAT SHE HAD LAST YEAR. CM EXPLORED CHART WHICH INDICATED IT WAS ARRANGED BY HER INSURANCE COMPANY. CM PROVIDED PT WITH MOM'S MEALS CONTACT INFORMATION, PT WANTS INSURANCE TO PAY AGAIN FOR SERVICES, CM ADVISED PT TO CALL HER INSURANCE COMPANY CUSTOMER SERVICE NUMBER WITH THE REQUEST. PT PLANS TO DISCHARGE HOME ALONE, FAMILY TO TRANSPORT. PT HAS NO ANTICIPATED DISCHARGE NEEDS. CM TO FOLLOW AND ASSIST IF NEEDED. Fermenting Cellar Dropper: Shyam Davidsonwell DCPIA - Discharge Planning Initial Assessment Updated by [id number]: Shyam Rick on 05/16/19 9:46 am * Is the patient Alert and Oriented? Yes * How many steps to enter\exit or inside your home? 10 * PCP DR. HOYOS * Pharmacy [facility] * Preadmission Environment Home Alone * ADLs Independent * Equipment None * Other Equipment [facility] - MEDICAL EQUIPMENT PROVIDER * List name and contact numbers for known caregivers / representatives who currently or will assist patient after discharge: KARSON MEJIAS, DTR, * Verbal permission to speak to the caregivers and representatives has been obtained from the patient. N/A * Community resources currently utilized None * Please name any agencies selected above. NONE * Additional services required to return to the preadmission environment? No * Can the patient safely return to the preadmission environment? Yes * Has this patient been hospitalized within the prior 30 days at any hospital? No Coverage Notice Reviewer: [id number] - Shyam Rick Notice Issued Date-Time: 05/16/2019 8:25 Notice Type: IM Discharge Notice Notice Delivered To: Patient Relationship to Patient: Comber Operator Name: Delivery Method: HAND - Hand Delivered Micheline Days: Prior Verbal Notification: Recipient Understood Notice: Yes Recipient Signature: Yes Med Rec Note Co-signed by Attending: Coverage Notice Comment: Reviewer: [id number] - Amanda Cazares Notice Issued Date-Time: 05/19/2019 11:12 Notice Type: IM Discharge Notice Notice Delivered To: Patient Relationship to Patient: Comber Operator Name: Delivery Method: HAND - Hand Delivered Micheline Days: Prior Verbal Notification: Recipient Understood Notice: Yes Recipient Signature: Yes Med Rec Note Co-signed by Attending: Coverage Notice Comment: Last DP export: 05/19/19 10:20 a Patient Name: REBECCA WHITFIELD Page 83653 at 1159 All edits/amendments must be made on the electronic document DICTATION DATE: 05/20/19 1152 ROLLWAY WORKER: SHANTELLE 05/20/19 1158 RPT#: [id number] DC DATE:05/19/19 STATUS: DIS IN [facility] [address] [place] [address] END OF REPORT
== END 2019-05-19 14:00 | disposition home or self-care (01) | DRG 391 ==
LOC: D.M2 12:14 → D.SDCHOLD 12:14 → D.M2 12:21
PROVIDERS: Family Medicine; ADMIT Family Medicine; ATTEND Family Medicine
PROC: 05HB33Z Insertion of Infusion Device into Right Basilic Vein, Percutaneous Approach (ICD-10-PCS; principal; 2019-05-09)
PROC: B54MZZA Ultrasonography of Right Upper Extremity Veins, Guidance (ICD-10-PCS; 2019-05-09)
PROC: 0DB68ZX Excision of Stomach, Via Natural or Artificial Opening Endoscopic, Diagnostic (ICD-10-PCS; 2019-05-10)
DX: K29.70 Gastritis, unspecified, without bleeding (principal); K85.90 Acute pancreatitis without necrosis or infection, unspecified; E46 Unspecified protein-calorie malnutrition; K31.84 Gastroparesis; Z68.27 Body mass index [BMI] 27.0-27.9, adult; K44.9 Diaphragmatic hernia without obstruction or gangrene; K21.9 Gastro-esophageal reflux disease without esophagitis; Z86.73 Personal history of transient ischemic attack (TIA), and cerebral infarction without residual deficits

== ENCOUNTER 2019-08-09 13:23 | Inpatient (IN) | payer OTHER ==
[~2019-08-09] VITALS: Ht 157.5 cm; Wt 46.3 kg
[~2019-08-09 13:23] MED LIST changes: +PERCOCET 7.5/321 TAB PO
[2019-08-09 14:35] VITALS: BP 114/76
[2019-08-09 15:05] LABS: BASOPHILS 0.1 % (0-2); HEMATOCRIT 40.5 % (36.0-48.0); HEMOGLOBIN 13.2 g/dL (12-16); IMMATURE GRANULOCYTES 0.1 % (0-5); LYMPHOCYTES 22.6 % (15-50); MCH 32.4 pg (26.0-34.0); MCHC 32.6 g/dL (31.0-37.0); MCV 99.5 fL (80.0-100.0); MEAN PLATELET VOLUME 10.1 fL (7.4-10.4); MONOCYTES 6.2 % (2-11); PLATELET COUNT 215 10x3/uL (130-400); RBC 4.07 10x6/uL (4.00-5.40); RDW 12.7 % (11.5-14.5); WBC 7.1 10x3/uL (4.8-10.8)
[2019-08-09 15:10] LABS: CALC OSMOLALITY 271 mosm/kg (275-300); CALCIUM 9.3 mg/dL (8.5-10.1); CARBON DIOXIDE 26.8 mmol/L (21.0-32.0); CHLORIDE - SERUM 101 mmol/L (98-107); CREATININE - SERUM 0.9 mg/dL (0.6-1.3); GLUCOSE 74 mg/dL (74-106); POTASSIUM - SERUM 4.2 mmol/L (3.5-5.1); SODIUM 136 mmol/L (136-145); UREA NITROGEN 15 mg/dL (7-18); eGFR NON AFRICAN AMERICAN 67 mL/min (90-120)
[2019-08-09 15:18] LABS: ALBUMIN 4.1 g/dL (3.4-5.0); ALKALINE PHOSPHATASE 92 U/L (46-116); ALT (SGPT) 16 U/L (10-68); AMYLASE - SERUM 46 U/L (25-115); BILIRUBIN - TOTAL 0.64 mg/dL (0.2-1.3); LIPASE 131 U/L (73-393); PROTEIN - SERUM 8.2 g/dL (6.4-8.2); TROPONIN-I < 0.017 ng/mL (0.000-0.060)
--- NOTE | 2019-08-09 15:48 | NUR ---
URINE SPECIMEN OBTAINED, LABELED AT BS AND SENT TO LAB
[2019-08-09 15:59] LABS: APPEARANCE CLEAR (CLEAR); BILIRUBIN NEGATIVE (NEGATIVE); COLOR STRAW (YELLOW); GLUCOSE NEGATIVE (NEGATIVE); KETONE NEGATIVE (NEGATIVE); NITRITE NEGATIVE (NEGATIVE); PROTEIN NEGATIVE (NEGATIVE); SPECIFIC GRAVITY 1.005 (1.005-1.020); UROBILINOGEN NORMAL (NORMAL)
[2019-08-09 20:00] VITALS: BP 122/72
[2019-08-09 23:40] VITALS: BP 122/72; BMI 18.7
[2019-08-10] VITALS: BP 124/53
[2019-08-10 04:00] VITALS: BP 112/65
--- NOTE | 2019-08-10 06:31 | NUR ---
ASSESSED AT THE BEGINNING OF THE SHIFT. PT IS ALERT AND ORIENTED, ABLE TO VERBALIZE NEEDS. SHE HAS C/O RIGHT SIDE PAIN AND BACK PAIN. DILAUDID AND ZOFRAN HAVE BEEN GIVEN TO HER ORDERED. SHE IS UP AD EUN TO THE BATHROOM AND WAS AWAKE MOST OF THE NIGHT WATCHING TV. AT THIS TIME SHE HAS HAD PAIN MEDS AND IS ASLEEP WITH NO DISTRESS NOTED.
[2019-08-10 07:38] LABS: ALBUMIN 3.1 g/dL (3.4-5.0); ALKALINE PHOSPHATASE 72 U/L (46-116); ALT (SGPT) 13 U/L (10-68); BILIRUBIN - TOTAL 0.22 mg/dL (0.2-1.3); CALC OSMOLALITY 283 mosm/kg (275-300); CALCIUM 8.6 mg/dL (8.5-10.1); CARBON DIOXIDE 28.7 mmol/L (21.0-32.0); CHLORIDE - SERUM 107 mmol/L (98-107); CREATININE - SERUM 0.8 mg/dL (0.6-1.3); GLUCOSE 77 mg/dL (74-106); POTASSIUM - SERUM 3.7 mmol/L (3.5-5.1); PROTEIN - SERUM 6.6 g/dL (6.4-8.2); SODIUM 143 mmol/L (136-145); UREA NITROGEN 13 mg/dL (7-18); eGFR NON AFRICAN AMERICAN 77 mL/min (90-120)
[2019-08-10 08:12] LABS: HEMATOCRIT 35.4 % (36.0-48.0); HEMOGLOBIN 11.7 g/dL (12-16); LYMPHOCYTES 22.8 % (15-50); MCH 32.9 pg (26.0-34.0); MCHC 33.1 g/dL (31.0-37.0); MCV 99.4 fL (80.0-100.0); MEAN PLATELET VOLUME 10.9 fL (7.4-10.4); NEUTROPHILS 71.9 % (40-80); PLATELET COUNT 147 10x3/uL (130-400); RBC 3.56 10x6/uL (4.00-5.40); RDW 12.4 % (11.5-14.5); WBC 5.4 10x3/uL (4.8-10.8)
[2019-08-10 08:30] VITALS: BP 103/59
[2019-08-10 12:53] VITALS: BP 101/57
[2019-08-10 13:49] VITALS: Ht 157.5 cm; Wt 46.3 kg
--- NOTE | 2019-08-10 15:20 | MORECARE ---
CASE MANAGEMENT DISCHARGE SUMMARY PATIENT: REBECCA WHITFIELD UNIT: [id number] ADM DATE: 08/09/19 AGE: 63 : 57 SEX: F ROOM/BED: D.2211 AUTHOR: NOVA LEI PHYSICIAN: REFERRING PHYSICIAN: MONTANA HOYOS MD DATE OF SERVICE: 08/10/19 Discharge Plan Patient Name: REBECCA WHITFIELD Facility: [facility]:[place] : 1955 Planned Disposition: Home Anticipated Discharge Date: Discharge Date: Expected LOS: Initial Reviewer: [email or web address] Initial Review Date: 08/10/2019 Generated: 08/10/19 4:20 pm Comments DCP- Discharge Planning Updated by [email or web address]: Amanda Cazares on 08/10/19 2:[address] Patient Name: REBECCA WHITFIELD Admission Status: ER Accout number: [id number] Admission Date: 08-09-2019 : 1955 Admission Diagnosis: Attending: MONTANA HOYOS Current LOS: 1 Anticipated DC Date: Planned Disposition: Home Primary Insurance: [employer] Discharge Planning Comments: CM MET WITH PATIENT TO DISCUSS DC PLANNING/NEEDS AFTER OBTAINING VERBAL CONSENT. PLANS TO DC TO HOME. DENIES NEEDS FOR EQUIPMENT, HOME HEALTH OR REHAB. CM TO FOLLOW AND ASSIST NEEDED. Investigative Agent: Amanda Cazares DCPIA - Discharge Planning Initial Assessment Updated by [email or web address]: Amanda Cazares on 08/10/19 3:11 pm * Is the patient Alert and Oriented? Yes * PCP [facility] * Pharmacy [facility] BUT WANTS TO CHANGE TO [facility] * Preadmission Environment Home with Family * ADLs Independent * Other Equipment NONE * Community resources currently utilized None * Additional services required to return to the preadmission environment? No * Can the patient safely return to the preadmission environment? Yes * Has this patient been hospitalized within the prior 30 days at any hospital? No Patient Name: REBECCA WHITFIELD Page 02751 at 1520 All edits/amendments must be made on the electronic document DICTATION DATE: 08/10/19 1520 HOLISTIC HEALTH PRACTITIONER: SHANTELLE 08/10/19 1520 RPT#: [id number] DC DATE: STATUS: ADM IN [facility] [address] [place] [address] END OF REPORT
--- NOTE | 2019-08-10 17:04 | NUR ---
I have reviewed this patient and I concur with the Shift Assessment completed by the Licensed Practical Nurse today this shift.
[2019-08-10 20:00] VITALS: BP 151/55
[2019-08-11] VITALS: BP 90/46
--- NOTE | 2019-08-11 02:23 | NUR ---
PT RESTING IN BED. EYES CLOSED. NO SIGNS OF DISTRESS. BREATHING EVEN AND UNLABORED. IV SITE LT CHEST PORT DRESSING CLEAN DRY AND INTACT. NO SIGNS OF INFECTION. SKIN CLEAN DRY AND INTACT. LUNG SOUNDS CLEAR. BOWEL SOUNDS ACTIVE. NO LOWER LEG SWELLING PRESENT. WILL CONTINUE PLAN OF CARE. CALL LIGHT IN REACH. BED LOWERED AND LOCKED. BED RAILS UPX2.
--- NOTE | 2019-08-11 03:56 | NUR ---
I have reviewed this patient and I concur with the Shift Assessment completed by the Licensed Practical Nurse today this shift.
[2019-08-11 04:00] VITALS: BP 104/59
[2019-08-11 07:56] LABS: BASOPHILS 0.3 % (0-2); EOSINOPHILS 0.7 % (0-7); HEMATOCRIT 33.1 % (36.0-48.0); HEMOGLOBIN 10.4 g/dL (12-16); IMMATURE GRANULOCYTES 0.2 % (0-5); LYMPHOCYTES 35.4 % (15-50); MCH 31.8 pg (26.0-34.0); MCHC 31.4 g/dL (31.0-37.0); MCV 101.2 fL (80.0-100.0); MEAN PLATELET VOLUME 10.2 fL (7.4-10.4); MONOCYTES 6.5 % (2-11); NEUTROPHILS 56.9 % (40-80); PLATELET COUNT 173 10x3/uL (130-400); RBC 3.27 10x6/uL (4.00-5.40); RDW 12.5 % (11.5-14.5)
--- NOTE | 2019-08-11 08:00 | NUR ---
PT RESTING. RR EVEN AND UNLABORED. RECIEVED GLUCOSE LEVEL OF 46. 2 GLASSES OF ORANGE JUICE AND PEANUT BUTTER RECIEVED. WILL CHANGE NS BAG TO D5W PER ORDER AND WILL RECHECK GLUCOSE LEVEL. DENIES NEEDS AT THIS TIME. PT REQUESTED PAIN MEDICATION FOR 8/10 PAIN IN BACK. WILL RECIEVE PER ORDER. BED IN LOWEST POSITION. PT DENIES FURTHER NEEDS AT THIS TIME. PT EDUCATED ON LOW GLUCOSE SIGNS AND SYMPTOMS AND TOLD TO CALL IF SHE FEELS ANY OF THEM. PT DENIES ANY SIGNS OR SYMPTOMS AT THIS TIME BUT DID STATE SHE FELT BETTER AFTER DRINKING ORANGE JUICE. WILL CONTINUE TO MONITOR. CALL LIGHT WITHIN REACH.
[2019-08-11 08:19] VITALS: BP 107/49
[2019-08-11 08:23] LABS: ANION GAP 15.8 mmol/L (8-16); CALCIUM 7.9 mg/dL (8.5-10.1); CARBON DIOXIDE 22.9 mmol/L (21.0-32.0); CREATININE - SERUM 0.9 mg/dL (0.6-1.3); POTASSIUM - SERUM 3.7 mmol/L (3.5-5.1)
--- NOTE | 2019-08-11 12:09 | NUR ---
I have reviewed this patient and I concur with the Shift Assessment completed by the Licensed Practical Nurse today this shift.
[2019-08-11 14:29] VITALS: BP 131/71
[2019-08-11 16:26] VITALS: BP 100/32
--- NOTE | 2019-08-11 19:15 | NUR ---
BEDSIDE REPORT RECEIVED. ASSUMED CARE OF PATIENT.
--- NOTE | 2019-08-11 19:20 | NUR ---
PATIENT ALERT AND ORIENTED WHEN ENTERING THE ROOM. PATIENT HAS LEFT CHEST IMPLANTED PORT THATS INFUSING D5NS @ 100 ML PER HOUR. PATIENT COMPLAINING ABOUT NPO DIET. EDUCATED PATIENT ON IMPORTANCE OF FOLLOWING DOCTORS ORDERS AND MAINTAING GUT REST. PATIENT VERBALIZES UNDERSTANDING BUT STATES THAT SHE "DRINKS ABOUT 8-10 CUPS OF COFFEE A DAY." REFUSES SCD'S. IS UP AD EUN. ELIQUIS FOR DVT PROPHYLAXIS. DENIES FURTHER NEEDS. CALL LIGHT IN REACH. CPOC.
[2019-08-11 20:00] VITALS: BP 116/54; BP 97/46
--- NOTE | 2019-08-11 23:00 | NUR ---
REQUESTED PAIN MEDICINE AND ZOFRAN. PROVIDED FOR PATIENT ORDERED. DENIES FURTHER NEEDS. CALL LIGHT IN REACH. CPOC.
[2019-08-12] VITALS: BP 97/46
--- NOTE | 2019-08-12 02:54 | NUR ---
I have reviewed this patient and I concur with the Shift Assessment completed by the Licensed Practical Nurse today this shift.
[2019-08-12 04:00] VITALS: BP 136/67
[2019-08-12 07:06] LABS: BASOPHILS 0 % (0-2); EOSINOPHILS 1.9 % (0-7); HEMATOCRIT 30.3 % (36.0-48.0); HEMOGLOBIN 9.9 g/dL (12-16); MCH 32.2 pg (26.0-34.0); MCHC 32.7 g/dL (31.0-37.0); MCV 98.7 fL (80.0-100.0); MEAN PLATELET VOLUME 10.3 fL (7.4-10.4); MONOCYTES 9.9 % (2-11); NEUTROPHILS 51.2 % (40-80); PLATELET COUNT 150 10x3/uL (130-400); RBC 3.07 10x6/uL (4.00-5.40); RDW 12.3 % (11.5-14.5); WBC 3.7 10x3/uL (4.8-10.8)
[2019-08-12 07:11] LABS: ALBUMIN 2.7 g/dL (3.4-5.0); ALKALINE PHOSPHATASE 69 U/L (46-116); ALT (SGPT) 14 U/L (10-68); AMYLASE - SERUM 32 U/L (25-115); BILIRUBIN - TOTAL 0.22 mg/dL (0.2-1.3); CALCIUM 7.8 mg/dL (8.5-10.1); CHLORIDE - SERUM 107 mmol/L (98-107); CREATININE - SERUM 0.7 mg/dL (0.6-1.3); LIPASE 110 U/L (73-393); POTASSIUM - SERUM 3.6 mmol/L (3.5-5.1); PROTEIN - SERUM 5.9 g/dL (6.4-8.2); SODIUM 141 mmol/L (136-145); eGFR NON AFRICAN AMERICAN 90 mL/min (90-120)
[2019-08-12 07:17] LABS: CALC OSMOLALITY 278 mosm/kg (275-300); CARBON DIOXIDE 30.3 mmol/L (21.0-32.0); GLUCOSE 96 mg/dL (74-106); UREA NITROGEN 8 mg/dL (7-18)
--- NOTE | 2019-08-12 08:00 | NUR ---
PT RECEIVED LAYING IN BED AWAKE AND ALERT. WATCHING TV. STILL NPO FOR NOW BUT WANTING TO EAT DUE TO BLOOD SUGAR DROP YESTERDAY. STILL RECEIVING IV PAIN MEDS.
[2019-08-12 08:45] VITALS: BP 122/63
[2019-08-12 12:00] VITALS: BP 156/63
[2019-08-12 17:01] VITALS: BP 145/59
[2019-08-12 20:00] VITALS: BP 136/63
[2019-08-13] VITALS (7 sets, daily range): BP systolic 102–125; BP diastolic 50–64
--- NOTE | 2019-08-13 07:54 | NUR ---
ALERT AND ORIENTED. LUNGS CLEAR BILATERALLY. HEART SOUNDS S1 AND S2 HEARD IN ALL TIERNEY. BOWEL SOUNDS ACTIVE X 4. LEFT CHEST PORT PATENT WITHOUT REDNESS. SKIN INTACT WITHOUT REDNESS. DENIES NEEDS. BED LOW. CALL NAILS AND PERSONAL ITEMS IN REACH. WILL CONTINUE TO MONITOR.
--- NOTE | 2019-08-13 10:42 | NUR ---
PATIENT SLEEPING. WILL CONTINUE TO MONITOR.
--- NOTE | 2019-08-13 12:54 | NUR ---
Nutrition follow-up: Pt remains with clear liquid diet 2/2 increased pain Labs reviewed -> amylase, lipase WNL Wt: 102# Meds: remeron IVF: D5NS @ 100 ml/hr Pt not meeting estimated energy needs and has been RADIO REPAIRER DOMESTIC/clear liquids x 4 days Recommend at least starting ProcalAmine PPN @ 100 ml/hr Pt may need TPN if NPO, clear liquids continue. RDN following.
--- NOTE | 2019-08-13 15:12 | NUR ---
PATIENT SLEEPING. WILL CONTINUE TO MONITOR.
--- NOTE | 2019-08-13 18:06 | NUR ---
RESTING IN BED. DENIES NEEDS. BED LOW. CALL NAILS AND PERSONAL ITEMS IN REACH.
--- NOTE | 2019-08-14 | NUR ---
EYES CLOSED RESPIRATIONS WITH EASE AND UNLABORED.
[2019-08-14 04:00] VITALS: BP 123/65
--- NOTE | 2019-08-14 05:30 | NUR ---
C/O PAIN ABDOMEN AND NAUSEA. DILAUDID 1MG AND ZOFRAN 4MG IVP GIVEN FOR PAIN AND NAUSEA.
[2019-08-14 06:11] LABS: BASOPHILS 0.2 % (0-2); HEMATOCRIT 32.1 % (36.0-48.0); HEMOGLOBIN 10.4 g/dL (12-16); LYMPHOCYTES 39.7 % (15-50); MCH 31.9 pg (26.0-34.0); MCHC 32.4 g/dL (31.0-37.0); MCV 98.5 fL (80.0-100.0); MEAN PLATELET VOLUME 10.4 fL (7.4-10.4); MONOCYTES 10.3 % (2-11); NEUTROPHILS 45.8 % (40-80); PLATELET COUNT 170 10x3/uL (130-400); RBC 3.26 10x6/uL (4.00-5.40); RDW 12.4 % (11.5-14.5); WBC 4.3 10x3/uL (4.8-10.8)
[2019-08-14 06:34] LABS: ALBUMIN 2.5 g/dL (3.4-5.0); ALKALINE PHOSPHATASE 77 U/L (46-116); AMYLASE - SERUM 24 U/L (25-115); BILIRUBIN - TOTAL 0.28 mg/dL (0.2-1.3); CALCIUM 7.7 mg/dL (8.5-10.1); CARBON DIOXIDE 30.7 mmol/L (21.0-32.0); CHLORIDE - SERUM 109 mmol/L (98-107); CREATININE - SERUM 0.7 mg/dL (0.6-1.3); GLUCOSE 101 mg/dL (74-106); POTASSIUM - SERUM 3.5 mmol/L (3.5-5.1); PROTEIN - SERUM 5.4 g/dL (6.4-8.2); SODIUM 144 mmol/L (136-145); eGFR NON AFRICAN AMERICAN 90 mL/min (90-120)
[2019-08-14 06:35] LABS: ALT (SGPT) 63 U/L (10-68); CALC OSMOLALITY 283 mosm/kg (275-300); LIPASE 79 U/L (73-393); UREA NITROGEN 3 mg/dL (7-18)
--- NOTE | 2019-08-14 07:41 | NUR ---
SPOKE WITH DR HOYOS WHO STATES OK TO CHANGE PHENERGAN TO IM FROM IV. STATES CHANGE DILAUDID FROM [id number] TO [id number]. ALSO STATES OK TO CHANGE ELIQUIS TO 5MG PO BID FROM 10MG PO DAILY.
--- NOTE | 2019-08-14 08:00 | NUR ---
ALERT AND ORIENTED. LUNGS CLEAR BILATERALLY. HEART SOUNDS S1 AND S2 HEARD IN ALL TIERNEY. BOWEL SOUNDS ACTIVE X 4. SKIN INTACT WITHOUT REDNESS. DENIES NEEDS. BED LOW. CALL NAILS AND PERSONAL ITEMS INREACH .WILL CONTINUE TO MONITOR.
[2019-08-14 09:16] VITALS: BP 123/68
--- NOTE | 2019-08-14 11:35 | NUR ---
PATIENT REQUESTING LAMOTIL FOR DIARRHEA. DR HOYOS NOTIFIED. STATES PATIENT CAN HAVE Q6PRN.
[2019-08-14 12:50] VITALS: BP 131/62
--- NOTE | 2019-08-14 13:22 | NUR ---
RESTING IN BED. DENIES NEEDS. WILL CONTINUE TO MONITOR.
[2019-08-14 17:11] VITALS: BP 152/80
--- NOTE | 2019-08-14 18:31 | NUR ---
RESTING IN BED. DENIES NEEDS. LEFT CHEST PORT PATENT WITHOUT REDNESS. BED LOW. CALL NAILS AND PERSONAL ITEMS INREACH.
[2019-08-14 20:00] VITALS: BP 123/90
--- NOTE | 2019-08-14 20:00 | NUR ---
ASSESSMENT PER FLOWSHEET. IV PATENT LEFT INFUSAPORT WITH D5NS AT 100CC'S/HR. NO DIARRHEA NOTED AT THIS TIME.
--- NOTE | 2019-08-14 21:33 | NUR ---
C/O NAUSEA ZOFRAN 4MG IVP GIVEN FOR RELIEF.
--- NOTE | 2019-08-14 22:47 | NUR ---
REQUESTING PAIN MED DILAUDID 0.5MG IVP GIVEN FOR ABDOMNAL PAIN.
--- NOTE | 2019-08-14 23:00 | NUR ---
RESTING AT THIS TIME.SR UP X2 CALL LIGHT WITHIN REACH.
--- NOTE | 2019-08-15 03:00 | NUR ---
C/O PAIN AND NAUSEA. DILAUDID 0.5MG AND ZOFRAN 4MG IVP GIVEN FOR RELIEF.
[2019-08-15 04:00] VITALS: BP 53/73
--- NOTE | 2019-08-15 06:12 | NUR ---
EYES CLOSED RESPIRATIONS WITH EASE AND UNLABORED.
[2019-08-15 07:10] LABS: CARBON DIOXIDE 31.7 mmol/L (21.0-32.0); CHLORIDE - SERUM 110 mmol/L (98-107); POTASSIUM - SERUM 3.1 mmol/L (3.5-5.1); SODIUM 145 mmol/L (136-145)
[2019-08-15 07:24] LABS: ALBUMIN 2.5 g/dL (3.4-5.0); ALKALINE PHOSPHATASE 78 U/L (46-116); ALT (SGPT) 48 U/L (10-68); BILIRUBIN - TOTAL 0.25 mg/dL (0.2-1.3); CALC OSMOLALITY 284 mosm/kg (275-300); CALCIUM 7.7 mg/dL (8.5-10.1); CREATININE - SERUM 0.7 mg/dL (0.6-1.3); GLUCOSE 78 mg/dL (74-106); PROTEIN - SERUM 5.5 g/dL (6.4-8.2); UREA NITROGEN 3 mg/dL (7-18); eGFR NON AFRICAN AMERICAN 90 mL/min (90-120)
[2019-08-15 07:27] LABS: BASOPHILS 0.5 % (0-2); EOSINOPHILS 3.6 % (0-7); HEMATOCRIT 29.1 % (36.0-48.0); HEMOGLOBIN 9.3 g/dL (12-16); LYMPHOCYTES 43.2 % (15-50); MCH 31.8 pg (26.0-34.0); MCV 99.7 fL (80.0-100.0); MEAN PLATELET VOLUME 10.8 fL (7.4-10.4); MONOCYTES 8.7 % (2-11); PLATELET COUNT 165 10x3/uL (130-400); RBC 2.92 10x6/uL (4.00-5.40); RDW 12.4 % (11.5-14.5); WBC 3.7 10x3/uL (4.8-10.8)
--- NOTE | 2019-08-15 07:27 | NUR ---
PT RESTING IN BED. NO SIGNS OF DISTRESS. IV TO LEFT CHEST PORT PATENT NO REDNESS OR TENDERNESS. DENIES ANY FURTHER NEED AT THIS TIME. CALL LIGHT IN REACH. BED LOW POSITION. NO FAMILY AT BEDSIDE AT THIS TIME.
[2019-08-15 09:22] VITALS: BP 146/58
[2019-08-15 13:13] VITALS: BP 152/70
--- NOTE | 2019-08-15 15:49 | MORECARE ---
CASE MANAGEMENT DISCHARGE SUMMARY PATIENT: REBECCA WHITFIELD UNIT: [id number] ADM DATE: 08/09/19 AGE: 63 : 57 SEX: F ROOM/BED: D.2211 AUTHOR: NOVA LEI PHYSICIAN: REFERRING PHYSICIAN: MONTANA HOYSO MD DATE OF SERVICE: 08/15/19 Discharge Plan Patient Name: REBECCA WHITFIELD Facility: [facility]:[place] : 1955 Planned Disposition: Home Anticipated Discharge Date: Discharge Date: Expected LOS: Initial Reviewer: [email or web address] Initial Review Date: 08/10/2019 Generated: 08/15/19 4:49 pm Comments DCP- Discharge Planning Updated by [email or web address]: Ailyn Ulloa on 08/15/19 2:[address] IMM SERVED AND EXPLAINED COPY PLACED ON CHART DCP- Discharge Planning Updated by [id number]: Amanda Cazares on 08/10/19 2:[address] Patient Name: REBECCA WHITFIELD Admission Status: ER Accout number: [id number] Admission Date: 08-09-2019 : 1955 Admission Diagnosis: Attending: MONTANA HOYOS Current LOS: 1 Anticipated DC Date: Planned Disposition: Home Primary Insurance[facility] Discharge Planning Comments: CM MET WITH PATIENT TO DISCUSS DC PLANNING/NEEDS AFTER OBTAINING VERBAL CONSENT. PLANS TO DC TO HOME. DENIES NEEDS FOR EQUIPMENT, HOME HEALTH OR REHAB. CM TO FOLLOW AND ASSIST NEEDED. State Trooper: Amanda Cazares DCPIA - Discharge Planning Initial Assessment Updated by [email or web address]: Amanda Cazares on 08/10/19 3:11 pm * Is the patient Alert and Oriented? Yes * PCP [facility] * Pharmacy [facility] BUT WANTS TO CHANGE TO [facility] * Preadmission Environment Home with Family * ADLs Independent * Other Equipment NONE * Community resources currently utilized None * Additional services required to return to the preadmission environment? No * Can the patient safely return to the preadmission environment? Yes * Has this patient been hospitalized within the prior 30 days at any hospital? No Coverage Notice Reviewer: [id number] - Ailyn Ulloa Notice Issued Date-Time: 08/15/2019 15:30 Notice Type: IM Discharge Notice Notice Delivered To: Patient Relationship to Patient: Military Technology Specialist Name: Delivery Method: HAND - Hand Delivered Micheline Days: Prior Verbal Notification: Recipient Understood Notice: Yes Recipient Signature: Yes Med Rec Note Co-signed by Attending: Coverage Notice Comment: Last DP export: 08/10/19 2:20 Patient Name: REBECCA WHITFIELD Page [id number] at 1549 All edits/amendments must be made on the electronic document DICTATION DATE: 08/15/191548 CRUSHER AND BLENDER OPERATOR: SHANTELLE 08/15/191548 RPT#: [id number] DC DATE: STATUS: ADM IN [facility] [address] [place] [address] END OF REPORT
[2019-08-15 16:45] VITALS: BP 157/63
--- NOTE | 2019-08-15 19:39 | NUR ---
I have reviewed this patient and I concur with the Shift Assessment completed by the Licensed Practical Nurse today this shift.
--- NOTE | 2019-08-15 19:40 | NUR ---
LYING IN BED. C/O ABD PAIN AND NAUSEA. RATES PAIN 8 IN EPIGASTRIC AND BACK. RESP EVEN AND NONLABORED. REPORTS DIARRHEA TODAY. D5NS @ 100 ML/HR INFUSING IN LT CHEST WALL INFUSAPORT. AMBULATORY. ALERT AND ORIENTED X4. SR ELEVATED X2. CL IN REACH.
[2019-08-15 19:46] VITALS: BP 114/75
--- NOTE | 2019-08-15 20:10 | NUR ---
MEDICATED WITH DILAUDID AND PHENERGAN ORDERED. CL IN REACH.
[2019-08-16] VITALS (7 sets, daily range): BP systolic 125–165; BP diastolic 59–77
--- NOTE | 2019-08-16 00:45 | NUR ---
MEDICATED WITH DILAUDID AND ZOFRAN FOR C/O ABD PAIN AND NAUSEA. CL IN REACH.
--- NOTE | 2019-08-16 05:05 | NUR ---
MEDICATED WITH DILAUDID AND ZOFRAN FOR C/O PAIN IN ABD AND NAUSEA. GAGGED ONCE DURING NIGHT BUT NO VOMITING. REPORTS ONLY ONE SMALL BM THAT WAS "DIARRHEA"
[2019-08-16 06:59] LABS: BASOPHILS 0.2 % (0-2); EOSINOPHILS 2.6 % (0-7); HEMATOCRIT 30.5 % (36.0-48.0); HEMOGLOBIN 9.7 g/dL (12-16); LYMPHOCYTES 35.8 % (15-50); MCH 31.5 pg (26.0-34.0); MCHC 31.8 g/dL (31.0-37.0); MEAN PLATELET VOLUME 10.5 fL (7.4-10.4); MONOCYTES 11.3 % (2-11); NEUTROPHILS 50.1 % (40-80); PLATELET COUNT 190 10x3/uL (130-400); RBC 3.08 10x6/uL (4.00-5.40); RDW 12.1 % (11.5-14.5); WBC 4.6 10x3/uL (4.8-10.8)
[2019-08-16 07:19] LABS: ALBUMIN 2.4 g/dL (3.4-5.0); ALKALINE PHOSPHATASE 82 U/L (46-116); ALT (SGPT) 42 U/L (10-68); BILIRUBIN - TOTAL 0.34 mg/dL (0.2-1.3); CALC OSMOLALITY 285 mosm/kg (275-300); CALCIUM 7.6 mg/dL (8.5-10.1); CARBON DIOXIDE 32.9 mmol/L (21.0-32.0); CHLORIDE - SERUM 108 mmol/L (98-107); CREATININE - SERUM 0.8 mg/dL (0.6-1.3); GLUCOSE 84 mg/dL (74-106); POTASSIUM - SERUM 3.1 mmol/L (3.5-5.1); PROTEIN - SERUM 5.6 g/dL (6.4-8.2); SODIUM 146 mmol/L (136-145); eGFR NON AFRICAN AMERICAN 77 mL/min (90-120)
[2019-08-16 07:21] LABS: UREA NITROGEN 2 mg/dL (7-18)
--- NOTE | 2019-08-16 17:34 | NUR ---
PT IS LOOKING AT PHONE. SHE IS WITHOUT NEEDS.CALL LIGHT IN REACH
--- NOTE | 2019-08-16 19:35 | NUR ---
IN BED WITH TELEVISION ON, HAS COMPLAINTS OF PAIN, NAUSEA, DIARRHEA, WILL TREAT ACCORDINGLY, ALSO COMPLAINED OF BRIEF NOT FITTING WELL AND CAUSING IRRITATION, SKIN BARRIER SPRAY GIVEN AND EDUCATED ON, SHE WAS THANKFUL. LEFT INFUSAPORT HAS FLUIDS INFUSING VIA ORDERS. WILL NOTE ANY CHANGE.
--- NOTE | 2019-08-16 22:02 | NUR ---
MEDICATION GIVEN AT 1999 FOR NAUSEA, PAIN, DIARRHEA. AT THIS TIME, PT HAS NO S/S OF ANY DISTRESS AND STATES MEDS WERE EFFECTIVE.
--- NOTE | 2019-08-17 00:31 | NUR ---
I have reviewed this patient and I concur with the Shift Assessment completed by the Licensed Practical Nurse today this shift.
[2019-08-17 00:39] VITALS: BP 159/76
--- NOTE | 2019-08-17 04:27 | NUR ---
RESTED FAIR THIS SHIFT, AT 0416 REC[address] MEDICATION FOR PAIN, REQUESTED MED FOR NAUSEA WHEN AVAILABLE. WILL NOTE ANY CHANGE.
[2019-08-17 06:20] VITALS: BP 146/68
--- NOTE | 2019-08-17 07:30 | NUR ---
PATIENT IN BED WITH IV INTACT. LAYING IN BED WITH EYES CLOSED RESTING QUIETLY. WILL CONTINUE TO MONITOR. CALL LIGHT WITHIN REACH.
[2019-08-17 07:48] LABS: CALC OSMOLALITY 283 mosm/kg (275-300); CALCIUM 8.2 mg/dL (8.5-10.1); CARBON DIOXIDE 32.3 mmol/L (21.0-32.0); CHLORIDE - SERUM 108 mmol/L (98-107); CREATININE - SERUM 0.6 mg/dL (0.6-1.3); GLUCOSE 81 mg/dL (74-106); POTASSIUM - SERUM 3.7 mmol/L (3.5-5.1); SODIUM 145 mmol/L (136-145); UREA NITROGEN 2 mg/dL (7-18); eGFR NON AFRICAN AMERICAN > 90 mL/min (90-120)
[2019-08-17 09:01] VITALS: BP 177/82
--- NOTE | 2019-08-17 12:02 | NUR ---
NUTRITION F/U PT REMAINS ON CLEAR LIQUID DIET, MAY BENEFIT FROM PROCALAMINE IF UNABLE TO TOLERATE ADVANCED DIET IN [address] FOLLOWING
[2019-08-17 13:57] VITALS: BP 149/60
[2019-08-17 16:01] VITALS: BP 167/76
--- NOTE | 2019-08-17 18:55 | NUR ---
PATIENT IN BED LAYING ON SIDE WITH NO COMPLAINTS. PORT INTACT. STATED SMALL AMOUNT OF PAIN. REPORT GIVEN TO ABUNDIO HUSSEIN. CALL LIGHT WITHIN REACH.
[2019-08-17 20:00] VITALS: BP 155/74
[2019-08-18 04:00] VITALS: BP 136/66
[2019-08-18 08:01] VITALS: BP 112/55
[2019-08-18 08:18] LABS: BASOPHILS 0.3 % (0-2); EOSINOPHILS 3.1 % (0-7); HEMATOCRIT 29.6 % (36.0-48.0); HEMOGLOBIN 9.6 g/dL (12-16); IMMATURE GRANULOCYTES 0.3 % (0-5); LYMPHOCYTES 37.3 % (15-50); MCH 31.7 pg (26.0-34.0); MCHC 32.4 g/dL (31.0-37.0); MCV 97.7 fL (80.0-100.0); MEAN PLATELET VOLUME 9.8 fL (7.4-10.4); PLATELET COUNT 198 10x3/uL (130-400); RBC 3.03 10x6/uL (4.00-5.40); WBC 3.8 10x3/uL (4.8-10.8)
[2019-08-18 08:36] LABS: ALBUMIN 2.5 g/dL (3.4-5.0); ALKALINE PHOSPHATASE 81 U/L (46-116); ALT (SGPT) 33 U/L (10-68); BILIRUBIN - TOTAL 0.25 mg/dL (0.2-1.3); CALC OSMOLALITY 285 mosm/kg (275-300); CALCIUM 8.2 mg/dL (8.5-10.1); CARBON DIOXIDE 30.5 mmol/L (21.0-32.0); CHLORIDE - SERUM 109 mmol/L (98-107); CREATININE - SERUM 0.7 mg/dL (0.6-1.3); GLUCOSE 86 mg/dL (74-106); POTASSIUM - SERUM 3.2 mmol/L (3.5-5.1); PROTEIN - SERUM 5.9 g/dL (6.4-8.2); SODIUM 146 mmol/L (136-145); UREA NITROGEN 2 mg/dL (7-18); eGFR NON AFRICAN AMERICAN 90 mL/min (90-120)
--- NOTE | 2019-08-18 10:00 | NUR ---
PT ALERT X 4. BREATH SOUNDS CLEAR BILAT. PORT TO LEFT CHEST, PATENT, DRESSING CDI. PT REPORTING NAUSEA, NO MEDICATION DUE AT THIS TIME. BED LOW, CALL LIGHT IN REACH. NO OTHER NEEDS AT THIS TIME.
[2019-08-18 11:58] VITALS: BP 160/43
[2019-08-18 16:56] VITALS: BP 179/80
[2019-08-18 19:30] VITALS: BP 141/67
[2019-08-19 00:30] VITALS: BP 136/72
[2019-08-19 04:30] VITALS: BP 144/65
--- NOTE | 2019-08-19 06:00 | NUR ---
PT C/O PAIN AND NAUSEA 04/28. GAVE DILAUDID 0.5 MG AND ZOFRAN 4MG IV PUSH. GAVE LOMOTIL FOR DIARRHEA. NO OTHER NEEDS. WILL REASSESS AND CONTINUE TO MONITOR.
[2019-08-19 07:11] LABS: CALC OSMOLALITY 279 mosm/kg (275-300); CARBON DIOXIDE 30.9 mmol/L (21.0-32.0); CHLORIDE - SERUM 108 mmol/L (98-107); CREATININE - SERUM 0.7 mg/dL (0.6-1.3); GLUCOSE 84 mg/dL (74-106); POTASSIUM - SERUM 3.5 mmol/L (3.5-5.1); SODIUM 143 mmol/L (136-145); eGFR NON AFRICAN AMERICAN 90 mL/min (90-120)
[2019-08-19 07:13] LABS: UREA NITROGEN 1 mg/dL (7-18)
--- NOTE | 2019-08-19 07:23 | NUR ---
PT IS RESTING IN BED WITH EYES CLOSED. RESPIRATIONS ARE EVEN AND UNLABORED. PT IS EASILY AROUSED WITH VERBAL STIMMULATION. PT IS AAO X 4 UPON AROUSAL. PT REPORTS PAIN TO MID EPIGASTRIC AREA AND TO "BACK. IT ALWAYS GOES TO MY BACK". WILL ADDRESS PAIN. SEE EMAR. PT DENIES PRESENCE OF N/V AT THIS TIME. BUT PT REPORTS THAT SHE HAS HAD MULTIPLE EPISODES OF VOMITING AND DIARRHEA THROUGHOUT THE NIGHT. BS ACTIVE X 4 QUADRANTS. ABDOMEN IS TENDER UPON PALPATION. PT DENIES FURTHER NEEDS. BED IS IN THE LOWEST POSITION. CALL LIGHT AND BEDSIDE TABLE ARE WITHIN REACH. SIDE RAILS X 2. WILL CONT TO MONITOR.
[2019-08-19 08:40] VITALS: BP 160/69
[2019-08-19 13:49] VITALS: BP 156/70
[2019-08-19 16:54] VITALS: BP 171/56
[2019-08-19 19:30] VITALS: BP 136/46
[2019-08-20 00:30] VITALS: BP 128/52
[2019-08-20 05:00] VITALS: BP 132/50
--- NOTE | 2019-08-20 08:05 | NUR ---
Nutrition follow-up: Diet: Clear liquids Pt continues with nausea, vomiting labs reviewed Wt: 102# on admit; please reweigh Pt is not meeting estimated energy needs with current po intake. Pt now assessed with severe malnutrition of acute illness R/T pancreatitis AEB: 1. ~3% weight loss in 7 days (105# before admit - now 102#) 2. < 50% intake of estimated energy needs for > 5 days (NPO/clear liquids x 10 days) Pt needs nutrition support started today. Recommend TPN if pt has a central line; in no central line, recommend ProcalAmine PPN @ 100 ml/hr. RDN following.
[2019-08-20 08:45] VITALS: BP 153/66
--- NOTE | 2019-08-20 14:37 | NUR ---
I have reviewed this patient and I concur with the Shift Assessment completed by the Licensed Practical Nurse today this shift.
--- NOTE | 2019-08-20 15:12 | NUR ---
MEDICATED WITH PRN PAIN MEDS PER ORDERS AT THIS TIME FOR C/O PAIN RATING 8/10 ON PAIN SCALE. C/L IN REACH AT BEDSIDE.
[2019-08-20 16:46] VITALS: BP 133/67
[2019-08-20 19:30] VITALS: BP 121/67
[2019-08-20 23:01] VITALS: BP 165/66
[2019-08-21 00:30] VITALS: BP 140/65
[2019-08-21 05:00] VITALS: BP 134/60
[2019-08-21 06:34] LABS: BASOPHILS 0.3 % (0-2); EOSINOPHILS 2.5 % (0-7); HEMOGLOBIN 9.1 g/dL (12-16); LYMPHOCYTES 43.5 % (15-50); MCH 31.5 pg (26.0-34.0); MCHC 32.5 g/dL (31.0-37.0); MCV 96.9 fL (80.0-100.0); MEAN PLATELET VOLUME 9.5 fL (7.4-10.4); MONOCYTES 9.9 % (2-11); NEUTROPHILS 43.8 % (40-80); PLATELET COUNT 185 10x3/uL (130-400); RBC 2.89 10x6/uL (4.00-5.40); RDW 11.9 % (11.5-14.5); WBC 3.6 10x3/uL (4.8-10.8)
[2019-08-21 06:37] LABS: ALBUMIN 2.4 g/dL (3.4-5.0); ALKALINE PHOSPHATASE 79 U/L (46-116); ALT (SGPT) 26 U/L (10-68); BILIRUBIN - TOTAL 0.18 mg/dL (0.2-1.3); CALC OSMOLALITY 283 mosm/kg (275-300); CALCIUM 7.6 mg/dL (8.5-10.1); CARBON DIOXIDE 28.6 mmol/L (21.0-32.0); CHLORIDE - SERUM 109 mmol/L (98-107); CREATININE - SERUM 0.8 mg/dL (0.6-1.3); GLUCOSE 89 mg/dL (74-106); PROTEIN - SERUM 5.5 g/dL (6.4-8.2); SODIUM 145 mmol/L (136-145); UREA NITROGEN 2 mg/dL (7-18); eGFR NON AFRICAN AMERICAN 77 mL/min (90-120)
--- NOTE | 2019-08-21 07:34 | NUR ---
PATIENT RECIEVED RESTING IN BED, REPORTS VOMITING AND DIARRHEA. RESPIRATIONS REGULAR AND NONLABORED. CL IN REACH
[2019-08-21 08:31] VITALS: BP 158/71
[2019-08-21 13:36] VITALS: BP 138/64
[2019-08-21 17:27] VITALS: BP 154/74
[2019-08-21 19:30] VITALS: BP 167/75
[2019-08-22 00:30] VITALS: BP 161/68
[2019-08-22 05:00] VITALS: BP 164/64
[2019-08-22] MEDS ORDERED: QUESTRAN LIG1 PACKET PO (07:45)
[2019-08-22] MEDS ORDERED: REGLAN10 MG PO (07:46)
[2019-08-22] MEDS ORDERED: LOMOTIL 2.5-0.1 EAC1 PO (07:46)
[2019-08-22] MEDS ORDERED: CARAFATE1 G PO (07:47)
[2019-08-22] MEDS ORDERED: PEPCID AC20 MG PO (07:48)
[2019-08-22] MEDS ORDERED: ZOFRAN4 MG PO (07:48)
[2019-08-22 08:11] VITALS: BP 166/75
--- NOTE | 2019-08-22 09:21 | MORECARE ---
CASE MANAGEMENT DISCHARGE SUMMARY PATIENT: REBECCA WHITFIELD UNIT: [id number] ADM DATE: 08/09/19 AGE: 63 : 57 SEX: F ROOM/BED: D.2211 AUTHOR: NOVA LEI PHYSICIAN: REFERRING PHYSICIAN: MONTANA HOYOS MD DATE OF SERVICE: 08/22/19 Discharge Plan Patient Name: REBECCA WHITFIELD Facility: [facility]:[place] : 1955 Planned Disposition: Home Anticipated Discharge Date: Discharge Date: Expected LOS: Initial Reviewer: [id number] Initial Review Date: 08/10/2019 Generated: 08/22/19 10:21 am Comments DCP- Discharge Planning Updated by [email or web address]: Ailyn Ulloa on 08/22/19 8:[address] ORELLANA WROTE FOR HOME HEALTH AND PORT FLUSHED, PATIENT STATED THAT SHE IS IN THE PROCESS OF MOVING THIS MONTH AND SHE DID NOT FEEL LIKE SHE NEEDED HOME HEALTH AND WANTED TO TALK TO DR ORELLANA BEFORE SENDING ANY REFERRAL TO HOME HEALTH. SHE WILL TALK TO HIM ON HER FOLLOW UP APPOINTMENT. KUMAR WAS SIGNED FOR [facility], BUT UNTIL SHE IS MOVED IN WITH HER LIVING SITUATION CHANGES. IMM SERVED AND EXPLAINED. HER FRIEND WILL BE DRIVING HER HOME AND SHE WILL BE STAYING WITH THAT FRIEND. CM TO FOLLOW AND ASSIST NEEDED DCP- Discharge Planning Updated by [email or web address]: Ailyn Ulloa on 08/15/19 2:[address] IMM SERVED AND EXPLAINED COPY PLACED ON CHART DCP- Discharge Planning Updated by [id number]: Amanda Cazares on 08/10/19 2:[address] Patient Name: REBECCA WHITFIELD Admission Status: ER Accout number: [id number] Admission Date: 08-09-2019 : 1955 Admission Diagnosis: Attending: MONTANA HOYOS Current LOS: 1 Anticipated DC Date: Planned Disposition: Home Primary Insurance: NOVASYCR Discharge Planning Comments: CM MET WITH PATIENT TO DISCUSS DC PLANNING/NEEDS AFTER OBTAINING VERBAL CONSENT. PLANS TO DC TO HOME. DENIES NEEDS FOR EQUIPMENT, HOME HEALTH OR REHAB. CM TO FOLLOW AND ASSIST NEEDED. Principal Planner: Amanda Cazares DCPIA - Discharge Planning Initial Assessment Updated by [email or web address]: Amanda Cazares on 08/10/19 3:11 pm * Is the patient Alert and Oriented? Yes * PCP [facility] * [facility] BUT WANTS TO [facility] TO [facility] * Preadmission Environment Home with Family * ADLs Independent * Other Equipment NONE * Community resources currently utilized None * Additional services required to return to the preadmission environment? No * Can the patient safely return to the preadmission environment? Yes * Has this patient been hospitalized within the prior 30 days at any hospital? No Coverage Notice Reviewer: [id number] Ulloa Notice Issued Date-Time: 08/15/2019 15:30 Notice Type: IM Discharge Notice Notice Delivered To: Patient Relationship to Patient: Credit Collections Clerk Name: Delivery Method: HAND - Hand Delivered Micheline Days: Prior Verbal Notification: Recipient Understood Notice: Yes Recipient Signature: Yes Med Rec Note Co-signed by Attending: Coverage Notice Comment: Reviewer: MATTHEW Ulloa Notice Issued Date-Time: 08/22/2019 9:10 Notice Type: IM Discharge Notice Notice Delivered To: Patient Relationship to Patient: Credit Collections Clerk Name: Delivery Method: HAND - Hand Delivered Micheline Days: Prior Verbal Notification: Recipient Understood Notice: Yes Recipient Signature: Yes Med Rec Note Co-signed by Attending: Coverage Notice Comment: Last DP export: 08/15/19 2:49 Patient Name: REBECCA WHITFIELD Page [phone] at 0921 All edits/amendments must be made on the electronic document DICTATION DATE: 08/22/19920 STUDIO SALES ASSOCIATE: SHANTELLE 08/22/19920 RPT#: [id number] DC DATE: STATUS: ADM IN [facility] [address] [place] [address] END OF REPORT
--- NOTE | 2019-08-22 12:26 | NUR ---
LEFT CHEST PORT FLUSHED WITH 10CC NS AND HUBBER NEEDLE REMOVED, NO BLEDDING, REDNESS OR EDEMA AT SITE. DISCHARGE INSTRUCTIONS GIVEN WITH PATIENT VOICING UNDERSTANDING. PATIENT ASKING FOR PAIN MEDICATION PRIOR TO DISCHARGE AND CONCERNED ABOUT B/P 180/78. NOTIFIED DR HOYOS AND SPOKE WITH NURSE TALBOT, NO CHANGES TO DISCHARGE PLAN AND PATIENT TO BE GIVEN NO PAIN MEDICATIONS BEFOR DISCHARGE. ELEVATED B/P LIKELY TO PATIENT NERVOUS ABOUT DISCHARGE. EDUCATED PATIENT AGAIN TO ONLY CONSUME SMALL FREQUENT MEALS TO AVOID PAIN. PATIENT VOICED UNDERSTANDING AND WAS TAKEN BY WHEELCHAIR TO PRIVATE CAR.
[2019-08-22 12:30] VITALS: BP 101/78
--- NOTE | 2019-08-26 16:17 | MORECARE ---
CASE MANAGEMENT DISCHARGE SUMMARY PATIENT: REBECCA WHITFIELD UNIT: [id number] ADM DATE: 08/09/19 AGE: 63 : 57 SEX: F ROOM/BED: D.2211 AUTHOR: DODOC PHYSICIAN: REFERRING PHYSICIAN: MONTANA HOYOS MD DATE OF SERVICE: 08/26/19 Discharge Plan Patient Name: REBECCA WHITFIELD Facility: [facility]:[place] : 1955 Planned Disposition: Home Anticipated Discharge Date: Discharge Date: 08/22/2019 Expected LOS: Initial Reviewer: [id number] Initial Review Date: 08/10/2019 Generated: 08/26/19 5:17 pm Comments DCP- Discharge Planning Updated by [email or web address]: Ailyn Ulloa on 08/22/19 8:[address] ORELLANA WROTE FOR HOME HEALTH AND PORT FLUSHED, PATIENT STATED THAT SHE IS IN THE PROCESS OF MOVING THIS MONTH AND SHE DID NOT FEEL LIKE SHE NEEDED HOME HEALTH AND WANTED TO TALK TO DR ORELLANA BEFORE SENDING ANY REFERRAL TO HOME HEALTH. SHE WILL TALK TO HIM ON HER FOLLOW UP APPOINTMENT. KUMAR WAS SIGNED FOR [facility], BUT UNTIL SHE IS MOVED IN WITH HER LIVING SITUATION CHANGES. IMM SERVED AND EXPLAINED. HER FRIEND WILL BE DRIVING HER HOME AND SHE WILL BE STAYING WITH THAT FRIEND. CM TO FOLLOW AND ASSIST NEEDED DCP- Discharge Planning Updated by [id number]: Ailyn Ulloa on 08/15/19 2:[address] IMM SERVED AND EXPLAINED COPY PLACED ON CHART DCP- Discharge Planning Updated by [email or web address]: Amanda Cazares on 08/10/19 2:[address] Patient Name: REBECCA WHITFIELD Admission Status: ER Accout number: [id number] Admission Date: 08-09-2019 : 1955 Admission Diagnosis: Attending: MONTANA HOYOS Current LOS: 1 Anticipated DC Date: Planned Disposition: Home Primary Insurance: NOVASYSMCR Discharge Planning Comments: CM MET WITH PATIENT TO DISCUSS DC PLANNING/NEEDS AFTER OBTAINING VERBAL CONSENT. PLANS TO DC TO HOME. DENIES NEEDS FOR EQUIPMENT, HOME HEALTH OR REHAB. CM TO FOLLOW AND ASSIST NEEDED. New Car Driver: Amanda Cazares DCPIA - Discharge Planning Initial Assessment Updated by [email or web address]: Amanda Cazares on 08/10/19 3:11 pm * Is the patient Alert and Oriented? Yes * PCP [facility] * [facility] BUT WANTS TO [facility]ANGE TO [facility] * Preadmission Environment Home with Family * ADLs Independent * Other Equipment NONE * Community resources currently utilized None * Additional services required to return to the preadmission environment? No * Can the patient safely return to the preadmission environment? Yes * Has this patient been hospitalized within the prior 30 days at any hospital? No Coverage Notice Reviewer: [id number] Ulloa Notice Issued Date-Time: 08/15/2019 15:30 Notice Type: IM Discharge Notice Notice Delivered To: Patient Relationship to Patient: Boom Conveyor Operator Name: Delivery Method: HAND - Hand Delivered Micheline Days: Prior Verbal Notification: Recipient Understood Notice: Yes Recipient Signature: Yes Med Rec Note Co-signed by Attending: Coverage Notice Comment: Reviewer: MATTHEW Ulloa Notice Issued Date-Time: 08/22/2019 9:10 Notice Type: IM Discharge Notice Notice Delivered To: Patient Relationship to Patient: Boom Conveyor Operator Name: Delivery Method: HAND - Hand Delivered Micheline Days: Prior Verbal Notification: Recipient Understood Notice: Yes Recipient Signature: Yes Med Rec Note Co-signed by Attending: Coverage Notice Comment: Last DP export: 08/22/19 8:21 a Patient Name: REBECCA WHITFIELD Page [phone] at 1617 All edits/amendments must be made on the electronic document DICTATION DATE: 08/26/191616 PORCELAIN FINISH SPRAYER: SHANTELLE 08/26/191616 RPT#: [id number] DC DATE:08/22/19 STATUS: DIS IN [facility] [address] [place] [address] END OF REPORT
== END 2019-08-22 12:32 | disposition home or self-care (01) | DRG 438 ==
LOC: D.ER 13:23 → D.MS 17:11 → D.SDCHOLD 08-15 16:36 → D.MS 08-15 16:42
PROVIDERS: Emergency Medicine; Family Medicine; ADMIT Family Medicine; ATTEND Family Medicine
DX: K85.90 Acute pancreatitis without necrosis or infection, unspecified (principal); E43 Unspecified severe protein-calorie malnutrition; R11.2 Nausea with vomiting, unspecified; R19.7 Diarrhea, unspecified; K20.9 Esophagitis, unspecified

== ENCOUNTER 2019-10-19 17:59 | Emergency (ER) | payer OTHER ==
[~2019-10-19] VITALS: Ht 157.5 cm; Wt 45.5 kg
[~2019-10-19 17:59] MED LIST changes: +CARAFATE1 G PO; +LOMOTIL 2.5-0.1 EAC1 PO; +PEPCID AC20 MG PO; +QUESTRAN LIG1 PACKET PO; +ZOFRAN4 MG PO
[2019-10-19 18:24] VITALS: Ht 157.5 cm; Wt 45.5 kg
[2019-10-19 18:57] LABS: BASOPHILS 0.3 % (0-2); EOSINOPHILS 1.7 % (0-7); HEMATOCRIT 37.9 % (36.0-48.0); HEMOGLOBIN 12.4 g/dL (12-16); IMMATURE GRANULOCYTES 0.2 % (0-5); LYMPHOCYTES 43.2 % (15-50); MCHC 32.7 g/dL (31.0-37.0); MCV 97.9 fL (80.0-100.0); MEAN PLATELET VOLUME 9.5 fL (7.4-10.4); MONOCYTES 6.1 % (2-11); NEUTROPHILS 48.5 % (40-80); RBC 3.87 10x6/uL (4.00-5.40); RDW 12.8 % (11.5-14.5)
[2019-10-19 19:11] LABS: PLATELET COUNT 265 10x3/uL (130-400)
[2019-10-19 19:15] LABS: CALC OSMOLALITY 284 mosm/kg (275-300); CALCIUM 9.2 mg/dL (8.5-10.1); CARBON DIOXIDE 32.7 mmol/L (21.0-32.0); CHLORIDE - SERUM 100 mmol/L (98-107); CREATININE - SERUM 0.9 mg/dL (0.6-1.3); GLUCOSE 88 mg/dL (74-106); SODIUM 142 mmol/L (136-145); UREA NITROGEN 20 mg/dL (7-18); eGFR NON AFRICAN AMERICAN 67 mL/min (90-120)
[2019-10-19 19:24] LABS: ALBUMIN 3.9 g/dL (3.4-5.0); ALKALINE PHOSPHATASE 101 U/L (30-120); ALT (SGPT) 24 U/L (10-68); AMYLASE - SERUM 49 U/L (25-115); BILIRUBIN - TOTAL 0.31 mg/dL (0.2-1.3); LIPASE 169 U/L (73-393); PROTEIN - SERUM 7.8 g/dL (6.4-8.2)
[2019-10-19 19:25] LABS: TROPONIN-I < 0.017 ng/mL (0.000-0.060)
[2019-10-19 20:03] LABS: APPEARANCE CLEAR (CLEAR); BILIRUBIN NEGATIVE (NEGATIVE); COLOR YELLOW (YELLOW); GLUCOSE NEGATIVE (NEGATIVE); KETONE NEGATIVE (NEGATIVE); NITRITE POSITIVE (NEGATIVE); PROTEIN TRACE mg/dL (NEGATIVE); UROBILINOGEN NORMAL (NORMAL)
[2019-10-19] MEDS ORDERED: CIPRO500 MG PO (21:25)
[2019-10-19 22:39] VITALS: BP 145/77
== END 2019-10-19 22:39 | disposition home or self-care (01) ==
LOC: D.ER 17:59
PROVIDERS: Family Medicine
DX: N39.0 Urinary tract infection, site not specified (principal)

== ENCOUNTER 2019-12-11 13:00 | Outpatient (CLI) | payer OTHER ==
[2019-10-19 18:24] VITALS: BMI 18.3
[~2019-12-11 13:00] MED LIST changes: +CIPRO500 MG PO
== END 2019-12-11 14:00 | disposition home or self-care (01) ==
LOC: D.MAMMO 13:00
PROVIDERS: ATTEND Family Medicine
DX: R92.8 Other abnormal and inconclusive findings on diagnostic imaging of breast (principal)

== ENCOUNTER 2020-01-03 18:07 | Inpatient (IN) | payer OTHER ==
[~2020-01-03] VITALS: Ht 157.5 cm; Wt 44.5 kg
[2020-01-03 19:00] VITALS: BP 109/53
--- NOTE | 2020-01-03 19:40 | NUR ---
BLOOD SPECIMENS SENT TO LAB AT THIS TIME.
[2020-01-03 19:56] LABS: BASOPHILS 0.6 % (0-2); EOSINOPHILS 1.8 % (0-7); HEMATOCRIT 38.4 % (36.0-48.0); HEMOGLOBIN 12.2 g/dL (12-16); LYMPHOCYTES 36.8 % (15-50); MCH 31.9 pg (26.0-34.0); MCHC 31.8 g/dL (31.0-37.0); MCV 100.5 fL (80.0-100.0); MEAN PLATELET VOLUME 9.8 fL (7.4-10.4); MONOCYTES 5.7 % (2-11); NEUTROPHILS 55.1 % (40-80); PLATELET COUNT 244 10x3/uL (130-400); RBC 3.82 10x6/uL (4.00-5.40); RDW 12.2 % (11.5-14.5); WBC 6.5 10x3/uL (4.8-10.8)
[2020-01-03 20:00] LABS: BILIRUBIN NEGATIVE (NEGATIVE); GLUCOSE NEGATIVE (NEGATIVE); KETONE NEGATIVE (NEGATIVE); NITRITE NEGATIVE (NEGATIVE); SPECIFIC GRAVITY 1.005 (1.005-1.020); UROBILINOGEN NORMAL (NORMAL)
[2020-01-03 20:30] VITALS: BP 132/73
[2020-01-03 20:31] LABS: CALC OSMOLALITY 279 mosm/kg (275-300); CALCIUM 8.8 mg/dL (8.5-10.1); CARBON DIOXIDE 30.2 mmol/L (21.0-32.0); CHLORIDE - SERUM 102 mmol/L (98-107); CREATININE - SERUM 0.9 mg/dL (0.6-1.3); GLUCOSE 90 mg/dL (74-106); SODIUM 139 mmol/L (136-145); UREA NITROGEN 19 mg/dL (7-18); eGFR NON AFRICAN AMERICAN 67 mL/min (90-120)
[2020-01-03 20:40] LABS: ALBUMIN 3.6 g/dL (3.4-5.0); ALKALINE PHOSPHATASE 90 U/L (30-120); ALT (SGPT) 16 U/L (10-68); AMYLASE - SERUM 50 U/L (25-115); BILIRUBIN - TOTAL 0.28 mg/dL (0.2-1.3); LIPASE 166 U/L (73-393); PROTEIN - SERUM 7.5 g/dL (6.4-8.2); TROPONIN-I < 0.017 ng/mL (0.000-0.060)
--- NOTE | 2020-01-03 20:54 | NUR ---
PT LEAVING FLOOR FOR ORDERED CT AT THIS TIME. NO SIGNS DISTRESS NOTED.
[2020-01-03 21:30] VITALS: BP 114/61
--- NOTE | 2020-01-03 21:32 | NUR ---
RESTING SUPINE POSITION, DENIES NEEDS. WILL CONTINUE TO MONITOR. LIGHTS DIMMED PER REQUEST.
--- NOTE | 2020-01-03 23:00 | NUR ---
RECEIVED TO FLOOR, ACCOMPANIED BY ER STAFF. A&O X 4, AMBULATES INDEPENDENTLY. REPORTS 9/10 PAIN ASSOCIATED WITH NAUSEA. VS STABLE. NO FURTHER NEEDS AT THIS TIME, INFORMED OF CLEAR LIQUID DIET. TELEMETRY APPLIED, 60 NORMAL SINUS. WILL CONTINUE TO MONITOR.
[2020-01-03] MEDS ORDERED: DILAUDID2 MG PO (23:05)
[2020-01-04 01:17] VITALS: BP 121/70; BMI 17.9
[2020-01-04 04:06] VITALS: BP 130/71
[2020-01-04 06:31] LABS: BASOPHILS 0.4 % (0-2); HEMOGLOBIN 10.6 g/dL (12-16); LYMPHOCYTES 48.3 % (15-50); MCH 31.7 pg (26.0-34.0); MCHC 31.2 g/dL (31.0-37.0); MCV 101.8 fL (80.0-100.0); MEAN PLATELET VOLUME 10.2 fL (7.4-10.4); MONOCYTES 8.9 % (2-11); NEUTROPHILS 39.4 % (40-80); PLATELET COUNT 204 10x3/uL (130-400); RBC 3.34 10x6/uL (4.00-5.40); RDW 12.2 % (11.5-14.5); WBC 5.4 10x3/uL (4.8-10.8)
[2020-01-04 07:13] LABS: ALKALINE PHOSPHATASE 74 U/L (30-120); ALT (SGPT) 16 U/L (10-68); BILIRUBIN - TOTAL 0.23 mg/dL (0.2-1.3); CALC OSMOLALITY 277 mosm/kg (275-300); CARBON DIOXIDE 28.2 mmol/L (21.0-32.0); CHLORIDE - SERUM 106 mmol/L (98-107); CREATININE - SERUM 0.8 mg/dL (0.6-1.3); MAGNESIUM - SERUM 1.9 mg/dL (1.8-2.4); PHOSPHOROUS 3.4 mg/dL (2.5-4.9); PROTEIN - SERUM 6.2 g/dL (6.4-8.2); SODIUM 140 mmol/L (136-145); UREA NITROGEN 15 mg/dL (7-18); eGFR NON AFRICAN AMERICAN 77 mL/min (90-120)
[2020-01-04 07:15] LABS: GLUCOSE 70 mg/dL (74-106)
[2020-01-04 09:00] VITALS: BP 119/62
--- NOTE | 2020-01-04 09:58 | NUR ---
PATIENT ATTEMPTING TO EAT BREAKFAST. QUESTIONS HOW OFTEN SHE CAN HAVE HER PAIN MEDICATION. I ANSWERED. NICOTENE PATCH PLACED ON RIGHT DELTOID. CL IN REACH. STILL CO NAUSEA. WCTM
[2020-01-04 10:52] VITALS: BP 132/69
[2020-01-04 13:23] VITALS: Ht 157.5 cm; Wt 44.5 kg
[2020-01-04 15:27] VITALS: BP 104/57
[2020-01-04 20:00] VITALS: BP 120/66
[2020-01-05 00:56] VITALS: BP 102/53
[2020-01-05 03:00] VITALS: BP 130/80
[2020-01-05 06:19] LABS: BASOPHILS 0.1 % (0-2); EOSINOPHILS 1.3 % (0-7); HEMATOCRIT 36.5 % (36.0-48.0); HEMOGLOBIN 11.2 g/dL (12-16); IMMATURE GRANULOCYTES 0.1 % (0-5); LYMPHOCYTES 27.6 % (15-50); MCH 31.3 pg (26.0-34.0); MCHC 30.7 g/dL (31.0-37.0); MEAN PLATELET VOLUME 9.8 fL (7.4-10.4); NEUTROPHILS 62.9 % (40-80); PLATELET COUNT 191 10x3/uL (130-400); RBC 3.58 10x6/uL (4.00-5.40)
[2020-01-05 06:24] LABS: WBC 6.8 10x3/uL (4.8-10.8)
[2020-01-05 06:35] LABS: ALKALINE PHOSPHATASE 81 U/L (30-120); ALT (SGPT) 18 U/L (10-68); BILIRUBIN - TOTAL 0.32 mg/dL (0.2-1.3); CALCIUM 8.2 mg/dL (8.5-10.1); CARBON DIOXIDE 27.8 mmol/L (21.0-32.0); CHLORIDE - SERUM 109 mmol/L (98-107); CREATININE - SERUM 0.7 mg/dL (0.6-1.3); GLUCOSE 84 mg/dL (74-106); POTASSIUM - SERUM 4.5 mmol/L (3.5-5.1); PROTEIN - SERUM 6.1 g/dL (6.4-8.2); SODIUM 144 mmol/L (136-145); eGFR NON AFRICAN AMERICAN 90 mL/min (90-120)
[2020-01-05 06:38] LABS: AMYLASE - SERUM 35 U/L (25-115); CALC OSMOLALITY 283 mosm/kg (275-300); LIPASE 78 U/L (73-393); UREA NITROGEN 7 mg/dL (7-18)
[2020-01-05 08:00] VITALS: BP 143/68
--- NOTE | 2020-01-05 08:00 | NUR ---
ALERT AND ORIENTED X4. DILAUDID GIVEN FOR RUQ ABDOMINAL PAIN W/O PALPATION. ABDOMEN GUARDED WITH BOWEL SOUNDS NOTED X4. UP ADLIB WITH TELEMETRY INTACT AND DENIES ANY CHEST PAIN OR DISCOMFORT. INSTRUCTED ON NEED FOR STOOL SPECIMEN AND VERBALIZED UNDERSTANDING. ENCOURAGED TO USE CALL LIGHT FOR ASSSIT.
[2020-01-05 08:45] VITALS: BP 131/68
[2020-01-05 12:00] VITALS: BP 99/67
[2020-01-05 16:00] VITALS: BP 158/65
[2020-01-06 04:00] VITALS: BP 116/61
--- NOTE | 2020-01-06 07:49 | NUR ---
RESTING ALERT AND ORIENTED X4. RESP EVEN AND UNLABORED. TELEMETRY INTACT AND DENIES ANY CHEST PAIN OR DISCOMFORT. IV INFUSING TO LEFT MEDIPORT AT PRESCRIBED RATE W/O S/S OF INFECTION/INFILTRATION. ABDOMEN GURARDED TO RUQ AND LUQ ANTERIOR WITH BOWEL SOUNDS NOTED. PAIN 7/10 WITH PAIN MANAGED WITH DILAUDID AND ZOFRAN AND EFFECTIVE. UP ADLIB. NO PERIPHERAL EDEMA NOTED.ENCOURAGED TO USE CALL LIGHT FOR ASSIST.
[2020-01-06 09:00] VITALS: BP 139/70
[2020-01-06 12:00] VITALS: BP 125/64
[2020-01-06 15:25] VITALS: BP 145/67
[2020-01-06 21:48] VITALS: BP 147/64
[2020-01-07 01:01] VITALS: BP 152/68
[2020-01-07 05:16] VITALS: BP 118/62
[2020-01-07 06:20] LABS: BASOPHILS 0.4 % (0-2); EOSINOPHILS 3.3 % (0-7); HEMATOCRIT 31.4 % (36.0-48.0); HEMOGLOBIN 9.9 g/dL (12-16); IMMATURE GRANULOCYTES 0.2 % (0-5); LYMPHOCYTES 31.9 % (15-50); MCH 31.4 pg (26.0-34.0); MCHC 31.5 g/dL (31.0-37.0); MEAN PLATELET VOLUME 9.6 fL (7.4-10.4); MONOCYTES 10.6 % (2-11); NEUTROPHILS 53.6 % (40-80); PLATELET COUNT 167 10x3/uL (130-400); RBC 3.15 10x6/uL (4.00-5.40); RDW 11.6 % (11.5-14.5); WBC 5.2 10x3/uL (4.8-10.8)
[2020-01-07 06:30] LABS: CALCIUM 7.7 mg/dL (8.5-10.1); CARBON DIOXIDE 32.4 mmol/L (21.0-32.0); CHLORIDE - SERUM 109 mmol/L (98-107); CREATININE - SERUM 0.7 mg/dL (0.6-1.3); GLUCOSE 73 mg/dL (74-106); SODIUM 143 mmol/L (136-145); eGFR NON AFRICAN AMERICAN 90 mL/min (90-120)
[2020-01-07 06:40] LABS: CALC OSMOLALITY 280 mosm/kg (275-300); POTASSIUM - SERUM 3.4 mmol/L (3.5-5.1); UREA NITROGEN 5 mg/dL (7-18)
[2020-01-07 07:07] LABS: MCV 99.7 fL (80.0-100.0)
--- NOTE | 2020-01-07 08:00 | NUR ---
ASSESSMENT PER FLOW SHEET. PATIENT IS WITHOUT DISTRESS.CALL LIGHT IN REACH
[2020-01-07 08:04] VITALS: BP 135/62
[2020-01-07] MEDS ORDERED: PERCOCET 10-321 EAC1 PO (08:21)
--- NOTE | 2020-01-07 11:38 | MORECARE ---
CASE MANAGEMENT DISCHARGE SUMMARY PATIENT: REBECCA WHITFIELD UNIT: [id number] ADM DATE: 01/04/20 AGE: 64 : 57 SEX: F ROOM/BED: D.2203 AUTHOR: NOVA LEI PHYSICIAN: REFERRING PHYSICIAN: MONTANA HOYOS MD DATE OF SERVICE: 01/07/20 Discharge Plan Patient Name: REBECCA WHITFIELD Facility: [facility]:[place] : 1955 Planned Disposition: Home or Self Care Anticipated Discharge Date: Discharge Date: Expected LOS: Initial Reviewer: [id number] Initial Review Date: 01/03/2020 Generated: 01/07/20 12:38 pm Comments DCP- Discharge Planning Updated by [email or web address]: Ailyn Ulloa on 01/07/20 10:[address] Patient Name: REBECCA WHITFIELD Admission Status: ER Accout number: [id number] Admission Date: 01-04-2020 : 1955 Admission Diagnosis: Attending: MONTANA HOYOS Current LOS: 3 Anticipated DC Date: Planned Disposition: Home or Self Care Primary Insurance: [employer] Discharge Planning Comments: CM met with patient to complete initial dc planning assessment. CM educated patient on the CM role and verbal consent given by patient to complete assessment. Patient lives at home, where she is independent with her care. At discharge patient plans to return home and feels this is a safe discharge. CM discussed availability of home health, rehab services, and medical equipment. Her grandson Delfino will be her milk pickup truck driver home today. IMM served and explained. Patient denied known discharge needs at this time. CM will continue to follow and will assist as needed with dc plans/needs. Autocad Designer: Ailyn Ulloa DCPIA - Discharge Planning Initial Assessment Updated by [email or web address]: Ailyn Ulloa on 01/07/20 11:34 am * Is the patient Alert and Oriented? Yes * How many steps to enter\exit or inside your home? * PCP [facility] * [facility] * Preadmission Environment Home Alone * ADLs Independent * Equipment None * List name and contact numbers for known caregivers / representatives who currently or will assist patient after discharge: ALEJANDRO WHITFIELD [phone] * Verbal permission to speak to the caregivers and representatives has been obtained from the patient. N/A * Community resources currently utilized None * Additional services required to return to the preadmission environment? No * Can the patient safely return to the preadmission environment? Yes * Has this patient been hospitalized within the prior 30 days at any hospital? No Coverage Notice Reviewer: [id number] Nathanael Ulloa Notice Issued Date-Time: 01/07/2020 11:30 Notice Type: IM Discharge Notice Notice Delivered To: Patient Relationship to Patient: Hand Stemmer Name: Delivery Method: HAND - Hand Delivered Micheline Days: Prior Verbal Notification: Recipient Understood Notice: Yes Recipient Signature: Yes Med Rec Note Co-signed by Attending: Coverage Notice Comment: Patient Name: REBECCA WHITFIELD Page [phone] at 1138 All edits/amendments must be made on the electronic document DICTATION DATE: 01/07/208 SPECIAL OFFICER: SHANTELLE 01/07/20 1138 RPT#: [id number] DC DATE: STATUS: ADM IN [facility] [address] [place] [address] END OF REPORT
--- NOTE | 2020-01-07 11:58 | NUR ---
DISCHARGE INSTRUCTIONS,STATES UNDERSTANDING.PORT FLUSHED PER PROTOCOL AND NEEDLE DC'D.PATIENT IS WAITING ON RIDE FOR TRANSPORT HOME.
--- NOTE | 2020-01-07 12:08 | NUR ---
TEMP PER PATIENT REQUEST WHILE WAITING ON RIDE 98.8
--- NOTE | 2020-01-07 12:33 | NUR ---
LEFT UNIT FOR TRANSPORT HOME WITH STAFF AT SIDE.
--- NOTE | 2020-01-08 09:26 | MORECARE ---
CASE MANAGEMENT DISCHARGE SUMMARY PATIENT: REBECCA WHITFIELD UNIT: [id number] ADM DATE: 01/04/20 AGE: 64 : 57 SEX: F ROOM/BED: D.2203 AUTHOR: DO,DOC PHYSICIAN: REFERRING PHYSICIAN: MONTANA HOYOS MD DATE OF SERVICE: 01/08/20 Discharge Plan Patient Name: REBECCA WHITFIELD Facility: [facility]:[place] : 1955 Planned Disposition: Home or Self Care Anticipated Discharge Date: Discharge Date: 01/07/2020 Expected LOS: Initial Reviewer: [email or web address] Initial Review Date: 01/03/2020 Generated: 01/08/20 10:26 am Comments DCP- Discharge Planning Updated by [email or web address]: Ailyn Ulloa on 01/07/20 10:[address] Patient Name: REBECCA WHITFIELD Admission Status: ER Accout number: [id number] Admission Date: 01-04-2020 : 1955 Admission Diagnosis: Attending: MONTANA HOYOS Current LOS: 3 Anticipated DC Date: Planned Disposition: Home or Self Care Primary Insurance: [employer] Discharge Planning Comments: CM met with patient to complete initial dc planning assessment. CM educated patient on the CM role and verbal consent given by patient to complete assessment. Patient lives at home, where she is independent with her care. At discharge patient plans to return home and feels this is a safe discharge. CM discussed availability of home health, rehab services, and medical equipment. Her grandson Delfino will be her fork truck driver home today. IMM served and explained. Patient denied known discharge needs at this time. CM will continue to follow and will assist as needed with dc plans/needs. Bilingual Office Assistant: Ailyn Ulloa DCPIA - Discharge Planning Initial Assessment Updated by [email or web address]: Ailyn Ulloa on 01/07/20 11:34 am * Is the patient Alert and Oriented? Yes * How many steps to enter\exit or inside your home? * PCP [facility] * Pharm[facility] * Preadmission Environment Home Alone * ADLs Independent * Equipment None * List name and contact numbers for known caregivers / representatives who currently or will assist patient after discharge: ALEJANDRO WHITFIELD [phone] * Verbal permission to speak to the caregivers and representatives has been obtained from the patient. N/A * Community resources currently utilized None * Additional services required to return to the preadmission environment? No * Can the patient safely return to the preadmission environment? Yes * Has this patient been hospitalized within the prior 30 days at any hospital? No Coverage Notice Reviewer: [id number] Nathanael Ulloa Notice Issued Date-Time: 01/07/2020 11:30 Notice Type: IM Discharge Notice Notice Delivered To: Patient Relationship to Patient: Phlebotomist Lab Assistant Name: Delivery Method: HAND - Hand Delivered Micheline Days: Prior Verbal Notification: Recipient Understood Notice: Yes Recipient Signature: Yes Med Rec Note Co-signed by Attending: Coverage Notice Comment: Last DP export: 01/07/20 10:39 a Patient Name: REBECCA WHITFIELD Page [phone] at 0926 All edits/amendments must be made on the electronic document DICTATION DATE: 01/08/20925 REGULATORY CONSULTANT: SHANTELLE 01/08/20925 RPT#: [id number] DC DATE:01/07/20 STATUS: DIS IN [facility] [address] [place] [address] END OF REPORT
== END 2020-01-07 12:44 | disposition home or self-care (01) | DRG 438 ==
LOC: D.ER 18:07 → D.MS 21:43 → OBSVTIME 21:43 → D.MS 21:43 → D.SDCHOLD 01-04 14:30 → D.MS 01-04 14:31
PROVIDERS: Emergency Medicine; Family Medicine; ADMIT Family Medicine; ATTEND Family Medicine
DX: K85.90 Acute pancreatitis without necrosis or infection, unspecified (principal); E43 Unspecified severe protein-calorie malnutrition; E46 Unspecified protein-calorie malnutrition; Z68.1 Body mass index [BMI] 19.9 or less, adult; K31.84 Gastroparesis; Z72.0 Tobacco use

== ENCOUNTER 2020-02-13 12:40 | Inpatient (IN) | payer OTHER ==
[~2020-02-13] VITALS: Ht 157.5 cm; Wt 44.5 kg
[~2020-02-13 12:40] MED LIST changes: +DILAUDID2 MG PO; +PERCOCET 10-321 EAC1 PO
--- NOTE | 2020-02-13 13:03 | NUR ---
PERMISSION GIVEN FROM DR HOYOS TO ACCESS PATIENTS LEFT CHEST PORT. CL IN REACH. PATIENT PLACING BOOKS ON THE BEDSIDE TABLE. TM
--- NOTE | 2020-02-13 13:30 | NUR ---
ACCESSED PORT WITH 20 G X 1 IN WITH PORT ACCESS KIT. STERILE TECHNIQUE MAINTAINED THROUGHOUT. TOLERATED WELL. CL IN REACH. WCTM
[2020-02-13] MEDS ORDERED: NEURONTIN600 MG PO (14:22)
[2020-02-13] MEDS ORDERED: PEPCID40 MG PO (14:23)
[2020-02-13 14:38] VITALS: BP 130/77; BMI 18.0
--- NOTE | 2020-02-13 15:00 | NUR ---
PATIENT REQUESTS SOME KIND OF SWABS TO KEEP HER MOUTH MOIST. PROVIDED MINT SWABS. CL IN REACH. TM
[2020-02-13 17:24] VITALS: BP 115/64
--- NOTE | 2020-02-13 18:00 | NUR ---
PATIENT CO OF NAUSEA AND PAIN. WILL TREAT PER EMAR. CL IN REACH. WCTM
--- NOTE | 2020-02-13 19:30 | NUR ---
PT IN BED, EYES CLOSED, RESP EVEN AND UNLABORED. NO DISTRESS NOTED, CL IN REACH, SR UP X 2.
[2020-02-13 22:42] VITALS: BP 113/62
[2020-02-14 01:11] VITALS: BP 106/51
--- NOTE | 2020-02-14 01:29 | NUR ---
I have reviewed this patient and I concur with the Shift Assessment completed by the Licensed Practical Nurse today this shift.
[2020-02-14 05:29] LABS: ALBUMIN 3.4 g/dL (3.4-5.0); ANION GAP 9.4 mmol/L (8-16); BILIRUBIN - TOTAL 0.24 mg/dL (0.2-1.3); CALCIUM 8.5 mg/dL (8.5-10.1); CARBON DIOXIDE 24.8 mmol/L (21.0-32.0); CREATININE - SERUM 0.9 mg/dL (0.6-1.3); POTASSIUM - SERUM 4.2 mmol/L (3.5-5.1); PROTEIN - SERUM 6.7 g/dL (6.4-8.2)
[2020-02-14 06:49] VITALS: BP 111/46
[2020-02-14 07:31] LABS: BASOPHILS 0.2 % (0-2); HEMATOCRIT 41.9 % (36.0-48.0); HEMOGLOBIN 13.2 g/dL (12-16); IMMATURE GRANULOCYTES 0.1 % (0-5); LYMPHOCYTES 22.6 % (15-50); MCH 33.1 pg (26.0-34.0); MCHC 31.5 g/dL (31.0-37.0); MEAN PLATELET VOLUME 10.9 fL (7.4-10.4); MONOCYTES 7.9 % (2-11); NEUTROPHILS 68.2 % (40-80); PLATELET COUNT 169 10x3/uL (130-400); RBC 3.99 10x6/uL (4.00-5.40); RDW 12.7 % (11.5-14.5); WBC 8.9 10x3/uL (4.8-10.8)
[2020-02-14 09:07] VITALS: BP 103/52
[2020-02-14 13:14] VITALS: Ht 157.5 cm; Wt 44.5 kg
[2020-02-14 13:45] VITALS: BP 90/50
[2020-02-14 17:56] VITALS: BP 110/56
--- NOTE | 2020-02-14 19:35 | NUR ---
PT LYING IN BED AWAKE ALERT AND ORIENTED x4. NO SIGNS OF DISTRESS NOTED. RESPIRATIONS EVEN AND UNLABORED. CALL LIGHT WITH IN REACH AND SIDERAILS UP x2. CALL LIGHT AND OTHER PERSONAL ITEMS WITH IN REACH. WILL CONTINUE TO MONIOTR.
[2020-02-14 20:00] VITALS: BP 130/50
[2020-02-15] VITALS: BP 124/59
--- NOTE | 2020-02-15 03:26 | NUR ---
PRN PAIN MEDICATION GIVEN FOR PAIN TO BACK AND ABD. RESPIRATIONS EVEN AND UNLABORED. PT IS AWAKE ALERT AND ORIENTED x4. CALL LIGHT AND OTHER PERSONAL ITEMS WITH IN REACH. WILL CONTINUE TO MONITOR
[2020-02-15 04:00] VITALS: BP 125/55
[2020-02-15 07:07] LABS: ALBUMIN 2.9 g/dL (3.4-5.0); ALKALINE PHOSPHATASE 75 U/L (30-120); ALT (SGPT) 19 U/L (10-68); BILIRUBIN - TOTAL 0.48 mg/dL (0.2-1.3); CALCIUM 7.8 mg/dL (8.5-10.1); CARBON DIOXIDE 23.7 mmol/L (21.0-32.0); CHLORIDE - SERUM 106 mmol/L (98-107); CREATININE - SERUM 0.8 mg/dL (0.6-1.3); POTASSIUM - SERUM 3.7 mmol/L (3.5-5.1); PROTEIN - SERUM 5.5 g/dL (6.4-8.2); SODIUM 137 mmol/L (136-145); eGFR NON AFRICAN AMERICAN 77 mL/min (90-120)
[2020-02-15 07:09] LABS: CALC OSMOLALITY 270 mosm/kg (275-300); GLUCOSE 58 mg/dL (74-106); UREA NITROGEN 10 mg/dL (7-18)
[2020-02-15 07:43] LABS: BASOPHILS 0.3 % (0-2); EOSINOPHILS 1.3 % (0-7); IMMATURE GRANULOCYTES 0.2 % (0-5); LYMPHOCYTES 34.1 % (15-50); MCH 32.3 pg (26.0-34.0); MCHC 32.3 g/dL (31.0-37.0); MONOCYTES 9.4 % (2-11); NEUTROPHILS 54.7 % (40-80); PLATELET COUNT 198 10x3/uL (130-400); RDW 12.1 % (11.5-14.5); WBC 6.2 10x3/uL (4.8-10.8)
--- NOTE | 2020-02-15 14:28 | NUR ---
C/O GENERALIZED PAIN WAS MEDICATED WITH DILUADID 1 MG SLOW IV PUSH PER ORDERS. C/L IN REACH AT BEDSIDE.
[2020-02-15 15:13] VITALS: BP 135/66
[2020-02-15 15:27] VITALS: BP 125/66
[2020-02-15 18:43] VITALS: BP 129/65
--- NOTE | 2020-02-15 18:53 | NUR ---
I have reviewed this patient and I concur with the Shift Assessment completed by the Licensed Practical Nurse today this shift.
--- NOTE | 2020-02-15 19:20 | NUR ---
MEDICATED WITH PHENEGRAN AND DILAUDID PER ORDER FOR C/O NAUSEA AND PAIN. C/L IN REACH AT BEDSIDE.
[2020-02-15 20:00] VITALS: BP 120/66
[2020-02-16] VITALS: BP 147/79
--- NOTE | 2020-02-16 00:27 | NUR ---
ASSESSED AT THE BEGINNING OF THE SHIFT. PT WAS ALERT AND ORIENTED AND CONCERNED ABOUT HER HOME MEDS NOT BEING ORDERED. MD WAS CALLED AND MEDS WERE GONE OVER WITH ORDERS RECEIVED BY THE ONES HE OK'ED. AFTER NIGHT TIME MEDS PT WENT TO SLEEP AND WE DID NOT KNOW SHE HAD GONE OUTSIDE TO HER CAR UNTIL A CALL CAME FROM THE CUT OFF SAW TENDER [employer]. SHE WAS WALKED BACK BY THE GUARD. SHE WAS CONCERNED ABOUT HER IV MACHINE AND HER MOM'S IF SHE HAD BEEN DREAMING. AFTER BEING BACK IN HER ROOM SHE REQUESTED HER PAIN MEDS AND DID RECEIVE THEM BUT WAS TOLD THAT SHE COULD NOT GO OUTSIDE AND BED ALARM WAS TURNED ON.
[2020-02-16 04:00] VITALS: BP 137/71
--- NOTE | 2020-02-16 07:15 | NUR ---
REC'D IN BED AWAKE AND ALERT. RESP EVEN AND UNLABORED WITH NO DISTRESS NOTED. CAN EXPRESS NEEDS AND WANTS. ASSESSMENT COMPLETED. UP AB EUN WITH SLOW AND STEADY GAIT. C/L IN REACH AT BEDSIDE.
[2020-02-16 07:51] LABS: BASOPHILS 0.3 % (0-2); EOSINOPHILS 1.7 % (0-7); HEMATOCRIT 31.7 % (36.0-48.0); HEMOGLOBIN 10.2 g/dL (12-16); LYMPHOCYTES 25.5 % (15-50); MCH 31.5 pg (26.0-34.0); MCHC 32.2 g/dL (31.0-37.0); MEAN PLATELET VOLUME 9.8 fL (7.4-10.4); MONOCYTES 10.1 % (2-11); NEUTROPHILS 62.4 % (40-80); PLATELET COUNT 216 10x3/uL (130-400); RBC 3.24 10x6/uL (4.00-5.40); RDW 11.8 % (11.5-14.5); WBC 5.8 10x3/uL (4.8-10.8)
[2020-02-16 07:52] LABS: MCV 97.8 fL (80.0-100.0)
[2020-02-16 08:04] LABS: CALC OSMOLALITY 279 mosm/kg (275-300); CARBON DIOXIDE 32.1 mmol/L (21.0-32.0); CHLORIDE - SERUM 106 mmol/L (98-107); CREATININE - SERUM 0.8 mg/dL (0.6-1.3); GLUCOSE 89 mg/dL (74-106); POTASSIUM - SERUM 3.1 mmol/L (3.5-5.1); SODIUM 142 mmol/L (136-145); UREA NITROGEN 6 mg/dL (7-18); eGFR NON AFRICAN AMERICAN 77 mL/min (90-120)
[2020-02-16 08:41] VITALS: BP 127/77
[2020-02-16 12:16] VITALS: BP 172/64
[2020-02-16 16:15] VITALS: BP 136/66
--- NOTE | 2020-02-16 17:53 | NUR ---
PT SPIKED A TEMP OF 102.2 AT THIS TIME CALL WAS PLACED TO ON-CALL AWAITING RESPONSE.
--- NOTE | 2020-02-16 18:24 | NUR ---
I have reviewed this patient and I concur with the Shift Assessment completed by the Licensed Practical Nurse today this shift.
--- NOTE | 2020-02-16 18:29 | NUR ---
REC'D CALL BACK FROM DR. CHAUDHRY WITH NEW ORDERS FOR STAT CHEST X-RAY, LIPASE, BLOOD CULTURES D/T ELEVATED TEMP AND APAP 650 MG Q 6 HRS PRN FOR FEVER. ALSO RESTARTED DILUADID PER ORDERS. C/L IN REACH AT BEDSIDE.
--- NOTE | 2020-02-16 19:48 | NUR ---
PATIENT REQUESTED PAIN MEDICATION AND PHENERGAN FOR NAUSEA. PATIENT DENIES OTHER NEEDS AT THIS TIME. BED IN LOWEST POSITION AND CALL LIGHT WITHIN REACH. ENCOURAGED THE PATIENT TO CALL IF SHE HAS NEEDS. WILL CONTINUE TO MONITOR.
[2020-02-16 20:00] VITALS: BP 140/67
--- NOTE | 2020-02-16 21:55 | NUR ---
ADMINISTERED MEDS PER ORDERS. PATIENT DENIES OTHER NEEDS AT THIS TIME. WILL CONTINUE TO MONITOR.
--- NOTE | 2020-02-16 23:00 | NUR ---
PATIENT APPEARS TO BE SLIGHTLY CONFUSED AFTER TAKING HER NIGHT MEDS INCLUDING HER AMBIEN. PATIENT HAS ASKED TWICE WHERE HER DAUGHTER WENT (PATIENT HAS HAD NO VISITORS THIS SHIFT), AND HAS LOOKED OUT INTO THE HALLWAY TWICE TO STATE THAT SHE CAN "HEAR PEOPLE". I REORIENTED THE PATIENT AND ASSISTED HER BACK TO BED. PATIENT DENIES OTHER NEEDS AT THIS TIME. WILL CONTINUE TO MONITOR.
[2020-02-17] VITALS: BP 137/65
[2020-02-17 04:00] VITALS: BP 123/48
[2020-02-17 08:10] VITALS: BP 110/48
--- NOTE | 2020-02-17 09:34 | NUR ---
RESTING IN BED, EYES CLOSED, NO DISTRESS NOTED, CONT TO MONITOR, SLEEPING FROM AMBIEN?
--- NOTE | 2020-02-17 09:34 | NUR ---
PT AWAKE WANTING PAIN AND NAUSEA MEDS
[2020-02-17 12:19] VITALS: BP 143/62
[2020-02-17 16:44] VITALS: BP 153/75
[2020-02-17 20:00] VITALS: BP 117/61
[2020-02-18] VITALS: BP 123/68
[2020-02-18 04:00] VITALS: BP 94/63
[2020-02-18] MEDS ORDERED: Pancrease 5000,17,00 PO (07:55)
[2020-02-18] MEDS ORDERED: PATOWN PO (07:56)
[2020-02-18 08:18] VITALS: BP 131/61
--- NOTE | 2020-02-18 12:10 | MORECARE ---
CASE MANAGEMENT DISCHARGE SUMMARY PATIENT: REBECCA WHITFIELD UNIT: [id number] ADM DATE: 02/13/20 AGE: 64 : 57 SEX: F ROOM/BED: D.2204 AUTHOR: NOVA LEI PHYSICIAN: REFERRING PHYSICIAN: MONTANA HOYOS MD DATE OF SERVICE: 02/18/20 Discharge Plan Patient Name: REBECCA WHITFIELD [facility] [facility] 1955 Planned Disposition: Home Anticipated Discharge Date: Discharge Date: Expected LOS: Initial Reviewer: [id number] Initial Review Date: 02/13/2020 Generated: 02/18/20 1:09 pm DCPIA - Discharge Planning Initial Assessment Updated by [email or web address]: Ailyn Ulloa on 02/18/20 12:09 pm * Is the patient Alert and Oriented? Yes * PCP [facility] * Pharm[facility] * Preadmission Environment Home Alone * ADLs Independent * Equipment None * List name and contact numbers for known caregivers / representatives who currently or will assist patient after discharge: ALEJANDRO WHITFIELD [phone] * Verbal permission to speak to the caregivers and representatives has been obtained from the patient. N/A * Community resources currently utilized None * Additional services required to return to the preadmission environment? No * Can the patient safely return to the preadmission environment? Yes * Has this patient been hospitalized within the prior 30 days at any hospital? No Patient Name: REBECCA WHITFIELD Page [phone] at 1210 All edits/amendments must be made on the electronic document DICTATION DATE: 02/18/20 1209 DEBT COUNSELOR: SHANTELLE 02/18/20 1209 RPT#: [id number] DC DATE: STATUS: ADM IN [facility] [address] [place] [id number] END OF REPORT
--- NOTE | 2020-02-18 12:17 | MORECARE ---
CASE MANAGEMENT DISCHARGE SUMMARY PATIENT: REBECCA WHITFIELD UNIT: [id number] ADM DATE: 02/13/20 AGE: 64 : 57 SEX: F ROOM/BED: D.2204 AUTHOR: DO,DOC PHYSICIAN: REFERRING PHYSICIAN: MONTANA HOYOS MD DATE OF SERVICE: 02/18/20 Discharge Plan Patient Name: REBECCA WHITFIELD Facility: [facility]:[place] : 1955 Planned Disposition: Home Anticipated Discharge Date: Discharge Date: Expected LOS: Initial Reviewer: [email or web address] Initial Review Date: 02/13/2020 Generated: 02/18/20 1:16 pm Comments DCP- Discharge Planning Updated by [email or web address]: Ailyn Ulloa on 02/18/20 11:[address] Patient Name: REBECCA WHITFIELD Admission Status: Elective Accout number: [id number] Admission Date: 02-13-2020 : 1955 Admission Diagnosis:UNSPECIFIED ABDOMINAL PAIN Attending: MONTANA HOYOS Current LOS: 5 Anticipated DC Date: Planned Disposition: Home Primary Insurance: [employer] Discharge Planning Comments: CM met with patient to complete initial dc planning assessment. CM educated patient on the CM role and verbal consent given by patient to complete assessment. Patient lives at home where she is independent with her care at home. At discharge patient plans to return home and feels this is a safe discharge. CM discussed availability of home health, rehab services, and medical equipment. IMM served and explained. Patient denied known discharge needs at this time. CM will continue to follow and will assist as needed with dc plans/needs. Halal Butcher: Ailyn Ulloa DCPIA - Discharge Planning Initial Assessment Updated by [email or web address]: Ailyn Ulloa on 02/18/20 12:09 pm * Is the patient Alert and Oriented? Yes * PCP [facility] * Pharmacy [facility] * Preadmission Environment Home Alone * ADLs Independent * Equipment None * List name and contact numbers for known caregivers / representatives who currently or will assist patient after discharge: ALEJANDRO WHITFIELD [phone] * Verbal permission to speak to the caregivers and representatives has been obtained from the patient. N/A * Community resources currently utilized None * Additional services required to return to the preadmission environment? No * Can the patient safely return to the preadmission environment? Yes * Has this patient been hospitalized within the prior 30 days at any hospital? No Coverage Notice Reviewer: [id number] - Ailyn Ulloa Notice Issued Date-Time: 02/18/2020 10:00 Notice Type: IM Discharge Notice Notice Delivered To: Patient Relationship to Patient: Business Continuity Strategy Director Name: Delivery Method: HAND - Hand Delivered Micheline Days: Prior Verbal Notification: Recipient Understood Notice: Yes Recipient Signature: Yes Med Rec Note Co-signed by Attending: Coverage Notice Comment: Last DP export: 02/18/20 11:10 am Patient Name: REBECCA WHITFIELD Page [id number] at 1217 All edits/amendments must be made on the electronic document DICTATION DATE: 02/18/206 BAR STEWARD: SHANTELLE 02/18/20 1216 RPT#: [id number] DC DATE: STATUS: ADM IN [facility] [address] [place] [address] END OF REPORT
[2020-02-18 12:34] VITALS: BP 146/70
--- NOTE | 2020-02-18 13:56 | NUR ---
VERBALIZED UNDERSTANDING OF DISCHARGE INSTRUCTIONS. FRIEND HERE TO BRIDAL CONSULTANT. DC'ED CHEST PORT PER PROTOCOL. WHEELED DOWNSTAIRS MYSELF.
--- NOTE | 2020-02-19 09:06 | MORECARE ---
CASE MANAGEMENT DISCHARGE SUMMARY PATIENT: REBECCA WHITFIELD UNIT: [id number] ADM DATE: 02/13/20 AGE: 64 : 57 SEX: F ROOM/BED: D.2204 AUTHOR: DO,DOC PHYSICIAN: REFERRING PHYSICIAN: MONTANA HOYOS MD DATE OF SERVICE: 02/19/20 Discharge Plan Patient Name: REBECCA WHITFIELD Facility: [facility]:[place] : 1955 Planned Disposition: Home Anticipated Discharge Date: Discharge Date: 02/18/2020 Expected LOS: Initial Reviewer: [email or web address] Initial Review Date: 02/13/2020 Generated: 02/19/20 10:05 am Comments DCP- Discharge Planning Updated by [email or web address]: Ailyn Ulloa on 02/18/20 11:[address] Patient Name: REBECCA WHITFIELD Admission Status: Elective Accout number: [id number] Admission Date: 02-13-2020 : 1955 Admission Diagnosis:UNSPECIFIED ABDOMINAL PAIN Attending: MONTANA HOYOS Current LOS: 5 Anticipated DC Date: Planned Disposition: Home Primary Insurance: [employer] Discharge Planning Comments: CM met with patient to complete initial dc planning assessment. CM educated patient on the CM role and verbal consent given by patient to complete assessment. Patient lives at home where she is independent with her care at home. At discharge patient plans to return home and feels this is a safe discharge. CM discussed availability of home health, rehab services, and medical equipment. IMM served and explained. Patient denied known discharge needs at this time. CM will continue to follow and will assist as needed with dc plans/needs. Breaker Operator: Ailyn Ulloa DCPIA - Discharge Planning Initial Assessment Updated by [email or web address]: Ailyn Ulloa on 02/18/20 12:09 pm * Is the patient Alert and Oriented? Yes * PCP [facility] * Pharmacy [facility] * Preadmission Environment Home Alone * ADLs Independent * Equipment None * List name and contact numbers for known caregivers / representatives who currently or will assist patient after discharge: ALEJANDRO WHITFIELD [phone] * Verbal permission to speak to the caregivers and representatives has been obtained from the patient. N/A * Community resources currently utilized None * Additional services required to return to the preadmission environment? No * Can the patient safely return to the preadmission environment? Yes * Has this patient been hospitalized within the prior 30 days at any hospital? No Coverage Notice Reviewer: [id number] Nathanael Ulloa Notice Issued Date-Time: 02/18/2020 10:00 Notice Type: IM Discharge Notice Notice Delivered To: Patient Relationship to Patient: [employer] Name: Delivery Method: HAND - Hand Delivered Micheline Days: Prior Verbal Notification: Recipient Understood Notice: Yes Recipient Signature: Yes Med Rec Note Co-signed by Attending: Coverage Notice Comment: Last DP export: 02/18/20 11:17 am Patient Name: REBECCA WHITFIELD Page [id number] at 0906 All edits/amendments must be made on the electronic document DICTATION DATE: 02/19/20904 DRY KILN BURNER: SHANTELLE 02/19/20904 RPT#: [id number] DC DATE:02/18/20 STATUS: DIS IN [facility] [address] [place] [address] END OF REPORT
== END 2020-02-18 13:22 | disposition home or self-care (01) | DRG 438 ==
LOC: D.MS 12:40
PROVIDERS: ADMIT Family Medicine; ATTEND Family Medicine
DX: K86.1 Other chronic pancreatitis (principal); E43 Unspecified severe protein-calorie malnutrition; Z68.1 Body mass index [BMI] 19.9 or less, adult; K31.84 Gastroparesis

== ENCOUNTER → 2020-05-16 11:09 | Outpatient (CLI) | payer OTHER ==
[2020-02-14 13:14] VITALS: BMI 17.9
[~2020-05-16 11:09] MED LIST changes: +NEURONTIN600 MG PO; +PATOWN PO; +PEPCID40 MG PO
== END | disposition home or self-care (01) ==
LOC: D.MRI 11:09
PROVIDERS: ATTEND Family Medicine
DX: S30.0XXA Contusion of lower back and pelvis, initial encounter (principal)

== ENCOUNTER 2020-06-27 19:58 | Emergency (ER) | payer OTHER ==
[~2020-06-27] VITALS: Ht 157.5 cm; Wt 44.5 kg
[2020-06-27 20:12] VITALS: Ht 157.5 cm; Wt 44.5 kg
[2020-06-27 22:36] LABS: BASOPHILS 0.3 % (0-2); EOSINOPHILS 1.6 % (0-7); HEMATOCRIT 40.6 % (36.0-48.0); HEMOGLOBIN 13.2 g/dL (12-16); IMMATURE GRANULOCYTES 0.2 % (0-5); LYMPHOCYTES 42.4 % (15-50); MCH 32.6 pg (26.0-34.0); MCHC 32.5 g/dL (31.0-37.0); MCV 100.2 fL (80.0-100.0); MEAN PLATELET VOLUME 10.1 fL (7.4-10.4); MONOCYTES 3.7 % (2-11); NEUTROPHILS 51.8 % (40-80); PLATELET COUNT 238 10x3/uL (130-400); RBC 4.05 10x6/uL (4.00-5.40); RDW 12.2 % (11.5-14.5); WBC 6.2 10x3/uL (4.8-10.8)
[2020-06-27 22:46] LABS: CALC OSMOLALITY 276 mosm/kg (275-300); CALCIUM 9.4 mg/dL (8.5-10.1); CARBON DIOXIDE 31.7 mmol/L (21.0-32.0); CHLORIDE - SERUM 102 mmol/L (98-107); GLUCOSE 82 mg/dL (74-106); POTASSIUM - SERUM 3.8 mmol/L (3.5-5.1); SODIUM 138 mmol/L (136-145); UREA NITROGEN 18 mg/dL (7-18); eGFR NON AFRICAN AMERICAN 59 mL/min (90-120)
[2020-06-27 22:56] LABS: BILIRUBIN NEGATIVE (NEGATIVE); KETONE NEGATIVE (NEGATIVE); NITRITE NEGATIVE (NEGATIVE); UROBILINOGEN NORMAL mg/dL (< 2)
[2020-06-27 22:57] LABS: ALBUMIN 4.1 g/dL (3.4-5.0); ALKALINE PHOSPHATASE 95 U/L (30-120); ALT (SGPT) 15 U/L (10-68); AMYLASE - SERUM 56 U/L (25-115); BILIRUBIN - TOTAL 0.33 mg/dL (0.2-1.3); LIPASE 128 U/L (73-393); PROTEIN - SERUM 8.4 g/dL (6.4-8.2); TROPONIN-I < 0.017 ng/mL (0.000-0.060)
[2020-06-28] MEDS ORDERED: ULTRAM50 MG PO (00:26)
[2020-06-28] MEDS ORDERED: FLAGYL500 MG PO (00:26)
[2020-06-28] MEDS ORDERED: CIPRO500 MG PO (00:26)
[2020-06-28 05:10] VITALS: BP 153/41
== END 2020-06-28 01:10 | disposition home or self-care (01) ==
LOC: D.ER 19:58
PROVIDERS: Emergency Medicine
DX: K52.9 Noninfective gastroenteritis and colitis, unspecified (principal); G62.9 Polyneuropathy, unspecified; R10.13 Epigastric pain

== ENCOUNTER 2020-12-19 17:16 | Outpatient (CLI) | payer OTHER ==
[2020-09-24 08:26] VITALS: BMI 19.4
[~2020-12-19 17:16] MED LIST changes: +FLAGYL500 MG PO; +ZITHROMAX250 MG PO
== END 2020-12-19 23:59 | disposition home or self-care (01) ==
LOC: D.MAMMO 17:16
PROVIDERS: ATTEND Family Medicine
DX: R92.8 Other abnormal and inconclusive findings on diagnostic imaging of breast (principal)

== ENCOUNTER → 2021-03-05 13:56 | Outpatient (CLI) | payer OTHER ==
[2020-09-24 08:26] VITALS: BMI 19.4
== END | disposition home or self-care (01) ==
LOC: D.US 13:56
PROVIDERS: ATTEND Family Medicine
DX: R60.9 Edema, unspecified (principal)

== ENCOUNTER 2021-03-14 10:11 | Inpatient (IN) | payer OTHER ==
[~2021-03-14] VITALS: Ht 157.5 cm; Wt 45.4 kg
[2021-03-14] MEDS ORDERED: PRAVASTATIN SOD10 MG PO (10:47)
[2021-03-14] MEDS ORDERED: DILAUDID2 MG PO (10:48)
[2021-03-14 10:49] LABS: BASOPHILS 0.4 % (0-2); EOSINOPHILS 2.8 % (0-7); HEMATOCRIT 31.8 % (36.0-48.0); HEMOGLOBIN 10.6 g/dL (12-16); LYMPHOCYTES 29.7 % (15-50); MCH 32.6 pg (26.0-34.0); MCHC 33.3 g/dL (31.0-37.0); MEAN PLATELET VOLUME 8.2 fL (7.4-10.4); MONOCYTES 9.1 % (2-11); PLATELET COUNT 176 10x3/uL (130-400); RBC 3.25 10x6/uL (4.00-5.40); RDW 12.1 % (11.5-14.5); WBC 5.3 10x3/uL (4.8-10.8)
[2021-03-14 11:00] VITALS: BP 105/48
[2021-03-14 11:52] LABS: CALC OSMOLALITY 283 mosm/kg (275-300); CALCIUM 8.3 mg/dL (8.5-10.1); CARBON DIOXIDE 27.4 mmol/L (21.0-32.0); CHLORIDE - SERUM 107 mmol/L (98-107); POTASSIUM - SERUM 3.5 mmol/L (3.5-5.1); SODIUM 141 mmol/L (136-145); UREA NITROGEN 26 mg/dL (7-18); eGFR NON AFRICAN AMERICAN 59 mL/min (90-120)
[2021-03-14 11:54] LABS: GLUCOSE 57 mg/dL (74-106)
[2021-03-14 11:56] LABS: BILIRUBIN NEGATIVE (NEGATIVE); KETONE NEGATIVE mg/dL (< 1+); NITRITE NEGATIVE (NEGATIVE); UROBILINOGEN NORMAL mg/dL (< 2)
[2021-03-14 12:01] LABS: ALBUMIN 3.2 g/dL (3.4-5.0); ALKALINE PHOSPHATASE 64 U/L (30-120); ALT (SGPT) 23 U/L (10-68); AMYLASE - SERUM 36 U/L (25-115); BILIRUBIN - TOTAL 0.26 mg/dL (0.2-1.3); LIPASE 112 U/L (73-393); PROTEIN - SERUM 6.2 g/dL (6.4-8.2)
[2021-03-14 12:13] LABS: TROPONIN-I < 0.017 ng/mL (0.000-0.060)
[2021-03-14 13:00] VITALS: BP 123/57
[2021-03-14 14:00] VITALS: BP 146/85
[2021-03-14 17:10] LABS: UDS - AMPHET NEGATIVE QUAL (NEGATIVE); UDS - BARB NEGATIVE QUAL (NEGATIVE); UDS - BENZO NEGATIVE QUAL (NEGATIVE); UDS - COCAINE NEGATIVE QUAL (NEGATIVE); UDS - OPIATE NEGATIVE QUAL (NEGATIVE); UDS - PCP NEGATIVE QUAL (NEGATIVE); UDS - THC NEGATIVE QUAL (NEGATIVE)
[2021-03-14] MEDS ORDERED: ZANAFLEX4 MG PO (18:51)
--- NOTE | 2021-03-14 19:00 | NUR ---
BEDSIDE REPORT RECEIVED AND CARE OF PT ASSUMED. PT ARRIVED ON UNIT AT 1844.
[2021-03-14 20:00] VITALS: BP 119/66
--- NOTE | 2021-03-14 21:16 | NUR ---
HS MEDICATIONS GIVEN TO INCLUDE DILAUDID 1 MG PO PER PRN ORDER FOR C/O CHRONIC ACHING BACK PAIN AT LEVEL 8/10. WILL CONTINUE TO MONITOR FOR NEEDS.
--- NOTE | 2021-03-14 22:00 | NUR ---
GAVE JELLO AND CHICKEN BROOTH PER REQUEST FOR HS SNACK.
[2021-03-14 22:49] VITALS: BP 137/67; BMI 18.3
--- NOTE | 2021-03-14 22:54 | NUR ---
ADMISSION ASSESSMENT AND HISTORY COMPLETE.
[2021-03-15] VITALS: BP 118/62
--- NOTE | 2021-03-15 01:16 | NUR ---
GAVE DILAUDID 1 MG PO AND ZOFRAN 4 MG IVP PER PT REQUEST FOR PAIN IN BACK AND NAUSEA.
[2021-03-15 04:00] VITALS: BP 106/47
[2021-03-15 07:02] LABS: BASOPHILS 0.5 % (0-2); HEMATOCRIT 34.1 % (36.0-48.0); HEMOGLOBIN 11.4 g/dL (12-16); LYMPHOCYTES 29.5 % (15-50); MCHC 33.4 g/dL (31.0-37.0); MCV 98.8 fL (80.0-100.0); MEAN PLATELET VOLUME 8.6 fL (7.4-10.4); MONOCYTES 8.1 % (2-11); NEUTROPHILS 58.9 % (40-80); PLATELET COUNT 182 10x3/uL (130-400); RBC 3.45 10x6/uL (4.00-5.40); RDW 12.2 % (11.5-14.5); WBC 6.4 10x3/uL (4.8-10.8)
[2021-03-15 07:18] LABS: ALBUMIN 3.5 g/dL (3.4-5.0); ANION GAP 10.9 mmol/L (8-16); BILIRUBIN - TOTAL 0.38 mg/dL (0.2-1.3); CALCIUM 8.2 mg/dL (8.5-10.1); CARBON DIOXIDE 25.9 mmol/L (21.0-32.0); POTASSIUM - SERUM 3.8 mmol/L (3.5-5.1); PROTEIN - SERUM 6.7 g/dL (6.4-8.2)
[2021-03-15 08:00] VITALS: BP 118/60
[2021-03-15 12:29] VITALS: BP 116/66
--- NOTE | 2021-03-15 15:29 | HP ---
PATIENT: REBECCA WHITFIELD MEDICAL RECORD: [id number] ACCOUNT: [id number] LOCATION:[id number] [id number] : [birth year] ADMISSION DATE: 03/14/21 PCP: No PCP HISTORY AND PHYSICAL EXAMINATION DATE OF ADMISSION: 03/14/2021 CHIEF COMPLAINT: Nausea, vomiting, weakness for 6 days. HISTORY OF PRESENT ILLNESS: This is a 65-year-old white female with multiple medical problems. She was brought to the Emergency Department stating she has had a flareup of her chronic pancreatitis for several days. She has had nausea, vomiting, weakness. In the ER, her blood pressure was initially very low and it responded well to 500 mL bolus of normal saline. The patient appeared lethargic when she first got to the ER, she had slurred speech, and not answering questions very well. Her medication list includes Dilaudid, oxycodone, gabapentin, and clonidine. However, her urine drug screen was negative. She is admitted for dehydration, nausea, vomiting and generalized weakness. PAST MEDICAL HISTORY: Dr. Miller is her primary care physician. She has a history of chronic recurrent pancreatitis. She has depression/anxiety. She has hyperlipidemia, hypothyroidism, history of coronary artery disease, gastroparesis, esophagitis, chronic recurrent DVTs, and chronic back pain with failed surgeries in the past. PAST SURGICAL HISTORY: Hysterectomy, cholecystectomy, section, stent placed in her common bile duct in 2017 and then removed a few months later. She had posterior lumbar fusion from L1-L5 in 2010. She had colonoscopy in June 2018 showing a polyp. She has had an appendectomy. ALLERGIES: REPORTEDLY TO COMPAZINE, IMITREX, MORPHINE AND VISTARIL. HOME MEDICATIONS: Zolpidem 10 mg p.o. at bedtime, pravastatin 40 mg p.o. every day, levothyroxine 25 mcg once a day, mirtazapine 30 mg 1 p.o. at bedtime, Trintellix 5 mg once a day, Carafate 4 times a day, clonazepam 2 mg t.i.d. p.r.n. anxiety, Lomotil one q.6 hours p.r.n. diarrhea, gabapentin 600 mg t.i.d., Eliquis 5 mg twice a day, pantoprazole 40 mg once a day, Dilaudid 1 mg q.4 p.r.n. pain, and she takes some pancreatic enzymes 500 mg daily. HABITS: Former smoker. Denies alcohol or drug use. SOCIAL HISTORY: She is single. FAMILY HISTORY: Significant for heart disease and diabetes. REVIEW OF SYSTEMS: GENERAL: Sketchy as the patient is the sole source of information here. There is no known recent weight loss. HEENT: No particular sinus or allergy problems. RESPIRATORY: No known COPD or asthma. CARDIAC: Has history of coronary artery disease. GASTROINTESTINAL: Has chronic pancreatitis, some reflux symptoms, gastroparesis. HISTORY AND PHYSICAL [id number] LAXLANIREBECCA MUSCULOSKELETAL: Chronic back pains. NEUROLOGIC: No migraines. No seizures. PSYCHIATRIC: She has depression/anxiety. PHYSICAL EXAMINATION: VITAL SIGNS: Today, temperature 98.2, pulse 57, respirations 14, blood pressure 146/85 in the ER. GENERAL: This is a thin white female, who is easily awakened and somewhat lethargic. A nephew is in the room with her today. SKIN: Warm and dry. HEENT: Grossly within normal limits. NECK: Supple. No JVD or bruit. HEART: Regular rate and rhythm without murmur. LUNGS: Fairly clear. ABDOMEN: Soft. There is some mild upper abdominal tenderness, though no guarding, no rebound, no mass. EXTREMITIES: No edema. LABORATORY DATA: Urine drug screen is actually negative. Urinalysis is normal. CBC with a white count of 5300, hemoglobin 10.6, hematocrit 31.8, platelets number 176,000. Sodium 141, potassium 3.5, chloride 107, CO2 27.4, BUN 26, creatinine 1.0, glucose is 57, calcium is 8.3. Liver functions are all normal. Albumin is 3.2. Troponin less than 0.017. Her amylase is 36 and lipase is 112, these are normal. DIAGNOSTIC DATA: EKG; heart rate 56, sinus rhythm. CT abdomen and pelvis, large stool in the right colon. Marked distention of urinary bladder. Otherwise, no obvious abnormalities seen. ASSESSMENT: 1. A 6-day history of nausea, vomiting, generalized weakness. She is dehydrated. 2. Hypotension upon presentation. 3. Hypoglycemia upon presentation. PLAN: She has already felt better after fluid challenge. We will admit her, give her IV fluids. Her urine drug screen is negative, so there was really no obvious evidence of overdose of medications. She tells me she has only taken pain pills a couple of times over the last week. With her urine drug screen being negative, I do not have much way to argue with her. I will continue her medications and see how she does. TRANSINT:[id number] Voice Confirmation ID: [id number] DOCUMENT ID: [id number] DAVID FIGUEROA MD at 1529 CC: [id number] DICTATION DATE: 03/15/21 1347 ROTARY BAR OPERATOR: 03/15/21 1423 [facility] [place] [id number] [place] [id number]
[2021-03-15 16:50] VITALS: BP 140/68
--- NOTE | 2021-03-15 19:00 | NUR ---
BEDSIDE REPORT RECEIVED AND CARE OF PT ASSUMED. PT LYING IN LOW RUBIN'S POSITION WATCHING TV. LEFT INFUSAPORT ACCESSED AND SALINE LOCKED. WILL MONITOR FOR NEEDS.
--- NOTE | 2021-03-15 21:00 | NUR ---
HS MEDICATIONS GIVEN TO INCLUDE DILAUDID 2 MG IVP PER REQUEST FOR PAIN IN ABDOMEN AND BACK AT LEVEL 8/10. WILL CONTINUE TO MONITOR FOR NEEDS.
--- NOTE | 2021-03-16 02:10 | NUR ---
GAVE DILAUDID 2 MG IVP AND PHENERGAN 25 MG IM PER PT REQUEST FOR PAIN AND NAUSEA. WILL MONITOR FOR EFFECTIVENESS.
[2021-03-16 04:00] VITALS: BP 99/55
[2021-03-16 08:43] VITALS: BP 105/70
[2021-03-16 14:22] VITALS: BP 117/49
--- NOTE | 2021-03-16 14:35 | NUR ---
WAS MEDICATED WITH DILUADID 1 MG AND ZOFRAN FOR C/O PAIN AND NAUSEA. C/L IN REACH AT BEDSIDE.
[2021-03-16 16:52] VITALS: Ht 157.5 cm; Wt 45.4 kg
--- NOTE | 2021-03-16 17:00 | NUR ---
I have reviewed this patient and I concur with the Shift Assessment completed by the Licensed Practical Nurse today this shift.
[2021-03-16 17:23] VITALS: BP 122/86
[2021-03-16 20:00] VITALS: BP 108/56
[2021-03-17] VITALS: BP 141/71
[2021-03-17 04:00] VITALS: BP 121/58
[2021-03-17 06:07] LABS: BASOPHILS 0.5 % (0-2); EOSINOPHILS 2.6 % (0-7); HEMATOCRIT 30.9 % (36.0-48.0); HEMOGLOBIN 10.3 g/dL (12-16); LYMPHOCYTES 42.2 % (15-50); MCH 32.9 pg (26.0-34.0); MCHC 33.3 g/dL (31.0-37.0); MCV 98.8 fL (80.0-100.0); MEAN PLATELET VOLUME 8.8 fL (7.4-10.4); MONOCYTES 8.9 % (2-11); NEUTROPHILS 45.8 % (40-80); PLATELET COUNT 146 10x3/uL (130-400); RBC 3.13 10x6/uL (4.00-5.40); RDW 12.3 % (11.5-14.5)
[2021-03-17 06:44] LABS: ALBUMIN 2.9 g/dL (3.4-5.0); ANION GAP 10.6 mmol/L (8-16); BILIRUBIN - TOTAL 0.32 mg/dL (0.2-1.3); CARBON DIOXIDE 26.1 mmol/L (21.0-32.0); CREATININE - SERUM 0.9 mg/dL (0.6-1.3); POTASSIUM - SERUM 3.7 mmol/L (3.5-5.1)
--- NOTE | 2021-03-17 08:00 | NUR ---
PATIENT IN BED WITH IV INTACT. NO COMPLAINTS OR SIGNS OF DISTRESS. CALL LIGHT WITHIN REACH.
[2021-03-17 09:02] VITALS: BP 133/60
[2021-03-17 13:22] VITALS: BP 122/66
[2021-03-17 18:04] VITALS: BP 150/78
--- NOTE | 2021-03-17 18:45 | NUR ---
PATIENT IN BED WITH IV INTACT. RECIEVED PAIN AND NAUSEA MEDS IV. REFUSES SCDS. ON LOVENOX. STATED SHE HAS VOIDED 2 TIMES TODAY. NO BMS. CALL LIGHT WITHIN REACH.
[2021-03-17 19:55] VITALS: BP 117/46
[2021-03-18 00:16] VITALS: BP 118/52
[2021-03-18 05:37] VITALS: BP 113/44
[2021-03-18] MEDS ORDERED: MEDROL DOSE PACK4 MG PO (07:17)
[2021-03-18] MEDS ORDERED: KENALOG 0.1 % 115 GM TOPICAL (07:19)
[2021-03-18 07:29] LABS: BASOPHILS 0.5 % (0-2); EOSINOPHILS 2.9 % (0-7); HEMATOCRIT 33.6 % (36.0-48.0); HEMOGLOBIN 11.3 g/dL (12-16); LYMPHOCYTES 38.5 % (15-50); MCH 32.8 pg (26.0-34.0); MCHC 33.6 g/dL (31.0-37.0); MCV 97.8 fL (80.0-100.0); MEAN PLATELET VOLUME 8.2 fL (7.4-10.4); MONOCYTES 9.5 % (2-11); NEUTROPHILS 48.6 % (40-80); PLATELET COUNT 159 10x3/uL (130-400); RBC 3.43 10x6/uL (4.00-5.40); RDW 12.1 % (11.5-14.5); WBC 4.7 10x3/uL (4.8-10.8)
[2021-03-18 07:57] LABS: ALBUMIN 3.1 g/dL (3.4-5.0); ANION GAP 8.5 mmol/L (8-16); BILIRUBIN - TOTAL 0.33 mg/dL (0.2-1.3); CALCIUM 8.3 mg/dL (8.5-10.1); CARBON DIOXIDE 30.2 mmol/L (21.0-32.0); CREATININE - SERUM 0.9 mg/dL (0.6-1.3); POTASSIUM - SERUM 3.7 mmol/L (3.5-5.1); PROTEIN - SERUM 6.3 g/dL (6.4-8.2)
--- NOTE | 2021-03-18 08:00 | NUR ---
PATIENT IN BED WITH IV INTACT. NO COMPLAINTS OR SIGNS OF DISTRESS. CALL LIGHT WITHIN REACH.
[2021-03-18 09:38] VITALS: BP 108/60
--- NOTE | 2021-03-18 10:00 | NUR ---
PATIENT RECIEVED DC INSTRUCTIONS. VERBALIZED UNDERSTANDING. INFUSAPORT REMOVED WITH CATH TIP INTACT. FLUSHED WITH SALINE AND HEPFLUSH BEFORE REMOVAL. CLEAN DRESSING PLACED OVER SITE. EXPLAINED TO PATIENT TO PICK MEDS UP FROM PHARMACY. NO QUESTIONS AT THIS TIME. WAITING FOR TRANSPORTATION FOR DC.
--- NOTE | 2021-03-18 11:15 | NUR ---
PATIENT ESCORTED OUT OF HOSPITAL AT THIS TIME VIA WC WITH PERSONAL BELONGINGS TO PRIVATE VEHICLE BY RN.
== END 2021-03-18 11:23 | disposition home or self-care (01) | DRG 438 ==
LOC: D.ER 10:11 → D.MS 13:12 → D.EDHOLD 13:12 → D.MS 15:55
PROVIDERS: Family Medicine; ADMIT Family Medicine; ATTEND Family Medicine
DX: K86.1 Other chronic pancreatitis (principal); G93.41 Metabolic encephalopathy; I95.9 Hypotension, unspecified; K31.84 Gastroparesis; K21.9 Gastro-esophageal reflux disease without esophagitis; R13.10 Dysphagia, unspecified; E16.2 Hypoglycemia, unspecified; K59.00 Constipation, unspecified; F32.9 Major depressive disorder, single episode, unspecified; F41.9 Anxiety disorder, unspecified; E78.5 Hyperlipidemia, unspecified; E03.9 Hypothyroidism, unspecified; I25.10 Atherosclerotic heart disease of native coronary artery without angina pectoris; K20.90 Esophagitis, unspecified without bleeding; Z86.718 Personal history of other venous thrombosis and embolism; Z79.01 Long term (current) use of anticoagulants; M54.9 Dorsalgia, unspecified; G89.29 Other chronic pain; E86.0 Dehydration